=== PATIENT | female | born 1965 | race Caucasian/White ===

== ENCOUNTER 2017-01-17 13:51 | Emergency (ER) | payer SELFPAY ==
[~2017-01-17] VITALS: Ht 149.9 cm; Wt 66.0 kg
[~2017-01-17 13:51] MED LIST: BACT800T5 PO; MECL25CH PO
[2017-01-17 13:54] VITALS: BP 142/78; PULSE 84; RESP 24; TEMP 97.8; O2SAT 99
--- NOTE | 2017-01-17 18:20 | PD ---
HPI Chief Complaint: Certified Scrum Master Problem/Complaint Time Seen by Provider: 18:19 Travel History International Travel<30 days: No Contact w/Intl Traveler<30days: No Traveled to known affect area: No PFSH Past Medical History Arthritis: Yes Asthma: Yes Diabetes: Yes Diminished Hearing: No Social History Alcohol Use: No Tobacco Use: No Substance Use: No Allergies-Medications (Allergen,Severity, Reaction): Coded Allergies: Amoxicillin (Verified Allergy, Severe, 01/17/17) Penicillin (Verified Allergy, Intermediate, Rash, 01/17/17) Reported Meds & Prescriptions Reported Meds & Active Scripts Active Reported Methotrexate 2.5 Mg Tab 2.5 Mg PO Q7D Prednisone 1 Mg Tab 1 Mg PO DAILY Metformin (Metformin HCl) 500 Mg Tab 500 Mg PO BIDPC With meals Data Data Last Documented VS Vital Signs Date Time Temp Pulse Resp B/P Pulse Ox O2 Delivery O2 Flow Rate FiO2 01/17/17 13:54 97.8 84 24 142/78 99 Room Air Orders Bedside Glucose LISA.AC&HS (01/17/17 18:20) Pebbles Bermeo Jan 17, 2017 18:20
[2017-01-17] MEDS ORDERED: PRED1 PO (18:26)
[2017-01-17] MEDS ORDERED: METH2.5T PO (18:26)
[2017-01-17] MEDS ORDERED: METF500T PO (18:26)
[2017-01-17] MEDS ORDERED: VIST50CA PO (18:40)
[2017-01-17] MEDS ORDERED: TERB250T4 PO (18:40)
[2017-01-17] MEDS ORDERED: ULTR50TA5 PO (18:40)
--- NOTE | 2017-01-17 18:40 | PD ---
HPI . Genital rash Chief Complaint: Technical Intern Problem/Complaint Time Seen by Provider: 18:19 Travel History International Travel<30 days: No Contact w/Intl Traveler<30days: No Traveled to known affect area: No History of Present Illness HPI Patient presents with a two-week history of worsening as to the external genitalia. It has been gradually worsening. She has been using Monistat relief of her symptoms. She states that she is having trouble urinating and defecating secondary to pain associated with the rash. She is also scratching it so much that it is bleeding. He is diabetic. [id number]: Genital area QUALITY: Pruritic and painful SEVERITY: Severe DURATION: 2 weeks TIMING: Gradually worsening CONTEXT: Diabetic MODIFYING FACTORS: Unrelieved by Monistat ASSOCIATED SYMPTOMS: Difficulty urinating and defecating secondary to pain PFSH Past Medical History Arthritis: Yes Asthma: Yes Diabetes: Yes Patient Takes Glucophage: Yes Diminished Hearing: No Influenza Vaccination: No ?: Not Menopausal: Yes Social History Alcohol Use: No Tobacco Use: No Substance Use: No Allergies-Medications (Allergen,Severity, Reaction): Coded Allergies: Amoxicillin (Verified Allergy, Severe, 01/17/17) Penicillin (Verified Allergy, Intermediate, Rash, 01/17/17) Reported Meds & Prescriptions Reported Meds & Active Scripts Active Reported Methotrexate 2.5 Mg Tab 2.5 Mg PO Q7D Prednisone 1 Mg Tab 1 Mg PO DAILY Metformin (Metformin HCl) 500 Mg Tab 500 Mg PO BIDPC With meals Review of Systems Genitourinary: Positive: Other (itching and pain of the external genitalia) Physical Exam Narrative GENERAL: Awake and alert. She is Scottish-speaking. The PA has provided interpretation. SKIN: Warm and dry. HEAD: Atraumatic. Normocephalic. EYES: Pupils equal and round. CARDIOVASCULAR: Regular rate and rhythm. RESPIRATORY: No accessory muscle use. : Marked erythema, swelling and excoriation of the labia majora extending into the medial thighs and to the anus. There are satellite lesions. MUSCULOSKELETAL: No obvious deformities. No edema. NEUROLOGICAL: Awake and alert. No obvious cranial nerve deficits. Motor grossly within normal limits. Normal speech. PSYCHIATRIC: Appropriate mood and affect; insight and judgment normal. Data Data Last Documented VS Vital Signs Date Time Temp Pulse Resp B/P Pulse Ox O2 Delivery O2 Flow Rate FiO2 01/17/17 13:54 97.8 84 24 142/78 99 Room Air Orders Bedside Glucose LISA.AC&HS (01/17/17 18:20) MDM Medical Decision Making Medical Screen Exam Complete: Yes Emergency Medical Condition: Yes Differential Diagnosis The differential diagnosis of the skin rash includes but is not limited to allergic urticaria, scabies, insect bites, contact dermatitis, tinea. Narrative Course Patient presents for the evaluation of a painful,. Gradual external genitalia. This rash has the typical appearance of "jock itch." Diagnosis Primary Impression: Tinea cruris Patient Instructions: General Instructions, Jock Itch (ED) Med/Other Pt SpecificInfo: Prescription(s) given Scripts Tramadol (Ultram)50 Mg Tab50 Mg PO Q4H PRN (PAIN) #12 TAB Ref 0 Prov:Talia Goldman MD 01/17/17 Hydroxyzine Pamoate (Vistaril)50 Mg [id number] Mg PO QID PRN (itching) #30 CAP Ref 0 Prov:Talia Goldman MD 01/17/17 Terbinafine 250 Mg [id number] Mg PO DAILY 14 Days Ref 0 Prov:Talia Goldman MD 01/17/17 Disposition: 01 DISCHARGE HOME Condition: Stable Talia Goldman MD Jan 17, 2017 18:40
[2017-01-17] MEDS ORDERED: hydrOXYzine PAMOATE 25 MG CAP PO ONE (18:45)
[2017-01-17] MEDS ORDERED: ACETAMINOPHEN/HYDROcodone 325 MG/5 MG TAB PO ONE (18:45)
[2017-01-17 19:37] VITALS: BP 142/81; PULSE 89; RESP 18; O2SAT 99
== END 2017-01-17 21:55 | disposition home or self-care (01) ==
LOC: NEPA 13:51
DX: B35.6 Tinea cruris (principal)
CPT/HCPCS: 99283; Q0177

== ENCOUNTER 2017-06-29 00:20 | Observation (INO) | payer MEDICAID ==
[2017-06-29] VITALS (12 sets, daily range): BP systolic 109–177; BP diastolic 59–97; PULSE 57–92; RESP 17–24; TEMP 97.7–98.3; O2SAT 97–100
[~2017-06-29] VITALS: Ht 154.9 cm; Wt 60.0 kg
[~2017-06-29 00:20] MED LIST changes: -BACT800T5 PO; -MECL25CH PO; +METF500T PO; +METH2.5T PO; +PRED1 PO; +TERB250T4 PO; +ULTR50TA5 PO; +VIST50CA PO
[2017-06-29] MEDS: NITROGLYCERIN 0.4 MG SL 25 TABS/BTL SL SCH ×3 (00:30→00:40)
[2017-06-29] MEDS ORDERED: SODIUM CHLORIDE 0.9% FLUSH 10 ML FLUSH IVF PRN (00:30)
[2017-06-29] MEDS ORDERED: MORPHINE SULFATE 4 MG/ML INJ IV PUSH ONE (00:30)
[2017-06-29] MEDS ORDERED: ASPIRIN 81 MG CHEW TAB PO ONE (00:30)
--- NOTE | 2017-06-29 00:56 | RADRPT ---
EXAM DATE/TIME: 06/29/2017 00:45 [facility] COMPARISON: No previous studies available for comparison. INDICATIONS : Chest pain left lower chest. MEDICAL HISTORY : None. SURGICAL HISTORY : None. ENCOUNTER: Initial ACUITY: 1 day PAIN SCORE: 0/10 LOCATION: Bilateral chest FINDINGS: A single view of the chest demonstrates the lungs to be symmetrically aerated without evidence of mas s, infiltrate or effusion. The cardiomediastinal contours are unremarkable. Osseous structures are intact. CONCLUSION: 1. No acute cardiopulmonary disease. Sreedhar Prieto MD on June 29, 2017 at 0:54 Board Certified Radiologist. This report was verified electronically.
[2017-06-29 01:04] LABS: AUTOMATED NEUTROPHIL # 4.9 TH/MM3 (1.8-7.7); BASOPHIL # 0.1 TH/MM3 (0-0.2); BASOPHIL % 0.6 % (0.0-2.0); EOSINOPHIL # 0.7 TH/MM3 (0-0.4); EOSINOPHIL % 6.4 % (0.0-4.0); HEMO FLAGS DIFF FINAL; LYMPHOCYTE # 4.3 TH/MM3 (1.0-4.8); MEAN CELL VOLUME 98.3 FL (80.0-100.0); MEAN CORPUSCULAR HEMOGLOBIN 33.6 PG (27.0-34.0); MEAN CORPUSCULAR HGB CONC 34.2 % (32.0-36.0); PLATELET COUNT 295 TH/MM3 (150-450); RED BLOOD COUNT 3.66 MIL/MM3 (4.00-5.30); WHITE BLOOD COUNT 11.6 TH/MM3 (4.0-11.0)
[2017-06-29 01:15] LABS: APTT (PATIENT) 24.8 SEC (24.3-30.1); PROTHROMBIN TIME - PATIENT 11.4 SEC (9.8-11.6)
[2017-06-29 01:19] LABS: ANION GAP 10 MEQ/L (5-15); BICARBONATE 21.3 MEQ/L (21.0-32.0); BLOOD UREA NITROGEN 13 MG/DL (7-18); CHLORIDE 109 MEQ/L (98-107); CREATINE KINASE 56 U/L (26-192); GLOMERULAR FILTRATION RATE 83 ML/MIN (>89); MAGNESIUM 1.4 MG/DL (1.5-2.5); POTASSIUM 3.1 MEQ/L (3.5-5.1); SODIUM (NA) 140 MEQ/L (136-145)
--- NOTE | 2017-06-29 01:29 | PD ---
HPI Chief Complaint: Chest Pain Time Seen by Provider: 00:29 Travel History International Travel<30 days: No Contact w/Intl Traveler<30days: No Traveled to known affect area: No History of Present Illness HPI 51-year-old female with history of diabetes here for evaluation of chest pain. Patient points that she has had substernal chest pain described as sharp/ pressure for the last 2 days. Pain is worse with movements. She denies history of cardiac disease. Pain became more severe tonight and has been constant. Mild dyspnea. PFSH Past Medical History Arthritis: Yes Asthma: Yes Diabetes: Yes Patient Takes Glucophage: Yes Diminished Hearing: No Tetanus Vaccination: < 5 Years Influenza Vaccination: Yes ?: Not Menopausal: Yes Past Surgical History Surgical History: No Previous Surgery Social History Alcohol Use: No Tobacco Use: No Substance Use: No Allergies-Medications (Allergen,Severity, Reaction): Coded Allergies: amoxicillin (Unverified Allergy, Severe, 06/29/17) penicillin G (Unverified Allergy, Intermediate, Rash, 06/29/17) Reported Meds & Prescriptions Reported Meds & Active Scripts Active Reported Metformin (Metformin HCl) 500 Mg Tab 500 Mg PO BIDPC With meals Review of Systems Except as stated in HPI: all other systems reviewed are Neg Physical Exam Narrative GENERAL: Well-developed, well-nourished, moaning secondary to pain. SKIN: Focused skin assessment warm/dry. HEAD: Atraumatic. Normocephalic. EYES: Pupils equal and round. No scleral icterus. No injection or drainage. ENT: Mucous membranes pink and moist. NECK: Trachea midline. No JVD. CARDIOVASCULAR: Regular rate and rhythm. Distal pulses brisk and equal bilaterally. RESPIRATORY: No accessory muscle use. Clear to auscultation. Breath sounds equal bilaterally. GASTROINTESTINAL: Abdomen soft, non-tender, nondistended. MUSCULOSKELETAL: No obvious deformities. No clubbing. No cyanosis. No edema. NEUROLOGICAL: Awake and alert. No obvious cranial nerve deficits. Motor grossly within normal limits. Normal speech. PSYCHIATRIC: Appropriate mood and affect; insight and judgment normal. Data Data Last Documented VS Vital Signs Date Time Temp Pulse Resp B/P (MAP) Pulse Ox O2 Delivery O2 Flow Rate FiO2 06/29/17 01:49 18 115/67 (83) 06/29/17 00:47 97 Room Air 06/29/17 00:44 92 06/29/17 00:22 98.3 Orders Orders Basic Metabolic Panel (Bmp) (06/29/17 00:29) Ckmb (Isoenzyme) Profile (06/29/17:29) Complete Blood Count With Diff (06/29/17 00:29) D-Dimer (06/29/17:29) Magnesium (Mg) (06/29/17:29) Prothrombin Time / Inr (Pt) (06/29/17:29) Act Partial Throm Time (Ptt) (06/29/17:29) Troponin I (06/29/17:29) Chest, Single Ap (06/29/17:29) Ecg Monitoring (06/29/17:29) Bilateral Bp Monitoring (06/29/17:) Iv Access Insert/Monitor (06/29/17:29) Oximetry (06/29/17:29) Oxygen Administration (06/29/17:29) Aspirin Chew (Aspirin Chew) (06/29/17 00:30) Sodium Chloride 0.9% Flush (Ns Flush) (06/29/17 00:30) Nitroglycerin Sl (Nitrostat Sl) (06/29/17 00:30) Morphine Inj (Morphine Inj) (06/29/17 00:30) Ct Pulmonary Angiogram (06/29/17 01:19) Potassium Chloride (Kcl) (06/29/17 01:30) Lipase (06/29/17 01:30) Iohexol 350 Inj (Omnipaque 350 Inj) (06/29/17 01:52) Labs Laboratory Tests Test 06/29/17 00:38 White Blood Count 11.6 TH/MM3 Red Blood Count 3.66 MIL/MM3 Hemoglobin 12.3 GM/DL Hematocrit 36.0 % Mean Corpuscular Volume 98.3 FL Mean Corpuscular Hemoglobin 33.6 PG Mean Corpuscular Hemoglobin Concent 34.2 % Red Cell Distribution Width 23.0 % Platelet Count 295 TH/MM3 Mean Platelet Volume 8.7 FL Neutrophils (%) (Auto) 42.0 % Lymphocytes (%) (Auto) 37.0 % Monocytes (%) (Auto) 14.0 % Eosinophils (%) (Auto) 6.4 % Basophils (%) (Auto) 0.6 % Neutrophils # (Auto) 4.9 TH/MM3 Lymphocytes # (Auto) 4.3 TH/MM3 Monocytes # (Auto) 1.6 TH/MM3 Eosinophils # (Auto) 0.7 TH/MM3 Basophils # (Auto) 0.1 TH/MM3 CBC Comment DIFF FINAL Differential Comment Prothrombin Time 11.4 SEC Prothromb Time International Ratio 1.0 RATIO Activated Partial Thromboplast Time 24.8 SEC D-Dimer Quantitative (PE/DVT) 0.71 MG/L FEU Blood Urea Nitrogen 13 MG/DL Creatinine 0.74 MG/DL Random Glucose 149 MG/DL Calcium Level 8.7 MG/DL Magnesium Level 1.4 MG/DL Sodium Level 140 MEQ/L Potassium Level 3.1 MEQ/L Chloride Level 109 MEQ/L Carbon Dioxide Level 21.3 MEQ/L Anion Gap 10 MEQ/L Estimat Glomerular Filtration Rate 83 ML/MIN Total Creatine Kinase 56 U/L Troponin I LESS THAN 0.02 NG/ML Lipase 222 U/L [facility] Medical Decision Making Medical Screen Exam Complete: Yes Emergency Medical Condition: Yes Interpretation(s) EKG: Sinus, rate 76, normal axis, normal intervals, slight ST depressions in V2 through V3, no ST elevations, no T-wave abnormalities. Differential Diagnosis ACS, pneumothorax, peritonitis, PE, pneumonia, musculoskeletal pain Narrative Course Initial vital signs show heart rate 86, blood pressure 177/97, pulse ox 99% on room air, oral temp of 98.3F. After sublingual nitroglycerin, repeat blood pressure is 118/72. CBC is unremarkable. BMP is markable for potassium 3.1 which was replaced orally, random glucose 149 , otherwise unremarkable. Cardiac enzymes are negative. D-dimer is slightly positive at 0.70. Lipase is 222. Chest x-ray: No acute cardio pulmonary disease. Patient was given a full aspirin, 3 sublingual nitroglycerin, and IV morphine. On reassessment she is sleeping comfortably and is pain-free. CT pulmonary angiogram: CONCLUSION: 1. No CT evidence for pulmonary artery embolism to the subsegmental level as questioned. 2. 3-4 mm nodule in the superior segment of the right lower lobe adjacent the major fissure. Optional CT examination may be performed in 12 months to followup for stability if patient is high risk, per 2017 Fleischner criteria. 3. Cholelithiasis. Patient and the patient's family were made aware of all findings. She reports known history of gallstones. She was also provided a copy of her CTA thorax and instructed to follow-up with a primary care physician for repeat CT scan in a month. She was given a full aspirin and 3 sublingual nitroglycerin as well as IV morphine. On reassessment she is sleeping comfortably, however when awoken, she states her pain feels better, however she is still complaining of slight chest pain. Her EKG shows slight ST depressions in V2 through V4. There are no T-wave abnormalities. No ST segment elevations. She'll be admitted to the chest pain center for further cardiac evaluation. Diagnosis Primary Impression: Chest pain Qualified Codes: R07.9 - Chest pain, unspecified Additional Impressions: Pulmonary nodule Cholelithiasis Qualified Codes: K80.20 - Calculus of gallbladder without cholecystitis without obstruction Admitting Information Admitting Physician Requests: Jose Daniel Horowitz MD Jun 29, 2017 01:29
[2017-06-29] MEDS ORDERED: POTASSIUM CHLORIDE 20 MEQ CONTROLLED RELEASE TAB PO ONE (01:30)
[2017-06-29] MEDS ORDERED: IOHEXOL 350 MG/ML 10 ML VIAL (for RAD DIAG) IVCONTRAST ONE (01:52)
--- NOTE | 2017-06-29 02:04 | RADRPT ---
EXAM DATE/TIME: 06/29/2017 01:45 [facility] COMPARISON: No previous studies available for comparison. INDICATIONS : Chest pain x2 days. Radiates to left side of back. IV CONTRAST: 75 cc Omnipaque 350 (iohexol) IV RADIATION DOSE: 23.14 CTDIvol (mGy) MEDICAL HISTORY : Diabetes mellitus type 2. Asthma/ SURGICAL HISTORY : None. ENCOUNTER: Initial ACUITY: 2 days PAIN SCALE: 10/10 LOCATION: chest TECHNIQUE: Volumetric scanning of the chest was performed using a pulmonary embolism protocol MIP images were re constructed. Using automated exposure control and adjustment of the mA and/or kV according to patien t size, radiation dose was kept as low as reasonably achievable to obtain optimal diagnostic quality images. DICOM format image data is available electronically for review and comparison. Follow-up recommendations for detected pulmonary nodules are based at a minimum on nodule size and pa tient risk factors according to Fleischner Society Guidelines. FINDINGS: PULMONARY ARTERIES: No filling defects are seen in the pulmonary arteries through the segmental level. LUNGS: There is a small 3-4 mm nodule in the superior segment of the right lower lobe adjacent the major fis sure. There is mild mosaic attenuation at the lung bases likely related to volume loss. PLEURAE: There is no pleural thickening or pleural effusion. MEDIASTINUM: There is good visualization of the great vessels of the middle mediastinum. No evidence of mediastin al or hilar adenopathy/mass. MUSCULOSKELETAL: Within normal limits for patient age. MISCELLANEOUS: Visualized upper abdomen demonstrates varying density in the dependent portion the gallbladder likely reflecting small gallstones. No significant focal lytic or blastic bony lesions. CONCLUSION: 1. No CT evidence for pulmonary artery embolism to the subsegmental level as questioned. 2. 3-4 mm nodule in the superior segment of the right lower lobe adjacent the major fissure. Optional CT examination may be performed in 12 months to followup for stability if patient is high risk, per 2017 Fleischner criteria. 3. Cholelithiasis. Sreedhar Prieto MD on June 29, 2017 at 1:57 Board Certified Radiologist. This report was verified electronically.
[2017-06-29] MEDS ORDERED: SODIUM CHLORIDE 0.9% FLUSH 10 ML FLUSH IV FLUSH PRN (02:30)
[2017-06-29] MEDS ORDERED: ONDANSETRON HCL 4 MG/2 ML VIAL ONE (03:43)
[2017-06-29] MEDS ORDERED: ONDANSETRON HCL 4 MG/2 ML VIAL IV PUSH ONE (03:45)
[2017-06-29 04:06] LABS: CREATINE KINASE 21 U/L (26-192)
[2017-06-29] MEDS ORDERED: MORPHINE SULFATE 4 MG/ML INJ IV PRN (05:45)
--- NOTE | 2017-06-29 07:53 | HHI.HP ---
HPI Primary Care Physician Primary Care Physician-[place], [place] Chief Complaint Chest pain History of Present Illness 51 year of female with known diabetes presents to ER for further evaluation of chest pain. Onset x2 nights ago. Location left inframammary. Characterized as sharp. No radiation of pain. Duration constant for 2 days. Breathing makes pain worse. No particular movement or position makes pain better or worse. No associated symptoms of nausea, vomiting, shortness of breath , or diaphoresis. No precipitating or relieving factors. No recent illness, fever, chills, fall, trauma, of injury. Special Diet Cook used during HPI and in the presence of the nurse. Review of Systems General: No fatigue,weakness, fever, chills, or recent illness. HEENT: No nasal congestion or drainage CV: As stated above. Chest pain made worse with expiration. RESP: No SOB, cough, recent URI, or wheeze. GI: No nausea, vomiting, or bowel changes. No change in appetite. EXT: No lower leg edema MS: Chronic back pain and generalized discomfort from RA. No injury, fall, trauma, or change in ROM NEURO: No difficulty with balance, LOC, motor/sensory deficits PSYCH: No anxiety, depression, or suicidal thoughts SKIN: No rashes, no concerning lesions Past Family Social History Allergies: Coded Allergies: penicillin G (Unverified Allergy, Intermediate, Rash, 06/29/17) Past Medical History Diabetes, RA, asthma Past Surgical History None Reported Medications Reported Meds & Active Scripts Active Reported Metformin (Metformin HCl) 500 Mg Tab 500 Mg PO BIDPC With meals Active Ordered Medications Current Medications Medications (Trade) Dose Ordered Sig/Lionel Route Start Time Stop Time Status Last Admin (NS Flush) 2 ml UNSCH PRN IVF 06/29/17 00:30 (NS Flush) 2 ml UNSCH PRN IV FLUSH 06/29/17 02:30 (NS Flush) 2 ml BID IV FLUSH 06/29/17 09:00 (Morphine Inj) 4 mg UNSCH X1 PRN IV 06/29/17 05:45 06/29/17 12:00 Social History Known diabetes (reports well controlled on Metformin). No known hyperlipidemia, CAD, or hypertension. Lifelong nonsmoker. Past Cardiac Testing None Physical Exam Vital Signs Vital Signs Date Time Temp Pulse Resp B/P (MAP) Pulse Ox O2 Delivery O2 Flow Rate FiO2 06/29/17 07:24 97.7 57 18 112/60 (77) 99 06/29/17 06:21 21 06/29/17 05:45 97.9 59 18 120/69 (86) 100 06/29/17 04:13 06/29/17 01:49 18 115/67 (83) 06/29/17 00:47 20 97 Room Air 06/29/17 00:44 92 20 118/72 (87) 97 Room Air 116/63 (80) 06/29/17 00:24 91 22 99 Room Air 06/29/17 00:22 98.3 86 24 177/97 (123) 99 Physical Exam GENERAL: Alert WN, WD, NAD, pleasant, [place]ian speaking female HEAD: NC, AT EYES: Sclera clear, conjunctiva without injection, pupils equal and round ENT: Mucous membranes pink and moist NECK: Supple, no masses, trachea midline CV: RRR, without murmur, rub, gallop, no JVD, S1-S2 no S3-S4. Chest wall pain reproducible with palpation. RESP: Clear lungs throughout bilateral, no crackles, wheeze, rhonchi, symmetrical chest rise, nonlabored, able to speak in full sentences ABD: Soft, NT, ND, no masses, positive bowel tones EXT: Pulses +24, no dependent edema MS: Normal tone 4 extremities, nontender, no obvious deformities, full range of motion NEURO: CN II through CN XII grossly intact, motor strength 5/5 PSYCH: A+O 3, pleasant affect, appropriate speech, appropriate mood and affect , insight and judgment SKIN: Normal turgor, normal texture, no lesions, no rashes Laboratory Laboratory Tests Test 06/29/17 00:38 06/29/17 03:18 06/29/17 06:30 White Blood Count 11.6 Red Blood Count 3.66 Hemoglobin 12.3 Hematocrit 36.0 Mean Corpuscular Volume 98.3 Mean Corpuscular Hemoglobin 33.6 Mean Corpuscular Hemoglobin Concent 34.2 Red Cell Distribution Width 23.0 Platelet Count 295 Mean Platelet Volume 8.7 Neutrophils (%) (Auto) 42.0 Lymphocytes (%) (Auto) 37.0 Monocytes (%) (Auto) 14.0 Eosinophils (%) (Auto) 6.4 Basophils (%) (Auto) 0.6 Neutrophils # (Auto) 4.9 Lymphocytes # (Auto) 4.3 Monocytes # (Auto) 1.6 Eosinophils # (Auto) 0.7 Basophils # (Auto) 0.1 CBC Comment DIFF FINAL Differential Comment Prothrombin Time 11.4 Prothromb Time International Ratio 1.0 Activated Partial Thromboplast Time 24.8 D-Dimer Quantitative (PE/DVT) 0.71 Blood Urea Nitrogen 13 Creatinine 0.74 Random Glucose 149 Calcium Level 8.7 Magnesium Level 1.4 Sodium Level 140 Potassium Level 3.1 Chloride Level 109 Carbon Dioxide Level 21.3 Anion Gap 10 Estimat Glomerular Filtration Rate 83 Total Creatine Kinase 56 21 Troponin I LESS THAN 0.02 LESS THAN 0.02 Lipase 222 Result Diagram: 06/29/173706/29/[address] Angiography 06/29/17118 Signed Impressions: Service Date/Time: Thursday, June 29, 2017 01:45 - CONCLUSION: 1. No CT evidence for pulmonary artery embolism to the subsegmental level as questioned. 2. 3-4 mm nodule in the superior segment of the right lower lobe adjacent the major fissure. Optional CT examination may be performed in 12 months to followup for stability if patient is high risk, per 2017 Fleischner criteria. 3. Cholelithiasis. Sreedhar Prieto MD Chest X-Ray 06/29/17 0029 Signed Impressions: Service Date/Time: Thursday, June 29, 2017 00:45 - CONCLUSION: 1. No acute cardiopulmonary disease. Sreedhar Prieto MD Course EKG NSR, normal axis, nonspecific st changes Caprini VTE Risk Assessment Caprini VTE Risk Assessment: No/Low Risk (score <= 1) Caprini Risk Assessment Model Point Value = 1 Point Value = 2 Point Value = 3 Point Value = 5 Age 41-60 Minor surgery BMI > 25 kg/m2 Swollen legs Varicose veins or History of unexplained or recurrent spontaneous Oral contraceptives or hormone replacement Sepsis (< 1 month) Serious lung disease, including pneumonia (< 1 month) Abnormal pulmonary function Acute myocardial infarction Congestive heart failure (< 1 month) History of inflammatory bowel disease Medical patient at bed rest Age 61-74 Arthroscopic surgery Major open surgery (> 45 min) Laparoscopic surgery (> 45 min) Malignancy Confined to bed (> 72 hours) Immobilizing plaster cast Central venous access Age >= 75 History of VTE Family history of VTE Factor V Leiden Prothrombin [id number] Lupus anticoagulant Anticardiolipin antibodies Elevated serum homocysteine Heparin-induced thrombocytopenia Other congenital or acquired thrombophilia Stroke (< 1 month) Elective arthroplasty Hip, pelvis, or leg fracture Acute spinal cord injury (< 1 month) Prophylaxis Regimen Total Risk Factor Score Risk Level Prophylaxis Regimen 0-1 Low Early ambulation 2 Moderate Order ONE of the following: *Sequential Compression Device (SCD) *Heparin 5000 units SQ BID 3-4 Higher Order ONE of the following medications: *Heparin 5000 units SQ TID *Enoxaparin/Lovenox 40 mg SQ daily (WT < 150 kg, CrCl > 30 mL/min) *Enoxaparin/Lovenox 30 mg SQ daily (WT < 150 kg, CrCl > 10-29 mL/min) *Enoxaparin/Lovenox 30 mg SQ BID (WT < 150 kg, CrCl > 30 mL/min) AND/OR *Sequential Compression Device (SCD) 5 or more Highest Order ONE of the following medications: *Heparin 5000 units SQ TID (Preferred with Epidurals) *Enoxaparin/Lovenox 40 mg SQ daily (WT < 150 kg, CrCl > 30 mL/min) *Enoxaparin/Lovenox 30 mg SQ daily (WT < 150 kg, CrCl > 10-29 mL/min) *Enoxaparin/Lovenox 30 mg SQ BID (WT < 150 kg, CrCl > 30 mL/min) AND *Sequential Compression Device (SCD) Assessment and Plan Assessment and Plan #1 Atypical chest pain-admitted to chest pain center. Ruled out with 3 sets of EKGs and cardiac enzymes. Seen and evaluated by Dr. Kate Boudreaux. Proceed with Lexiscan due to risks factors. Chest discomfort clearly appears to by musculoskeletal in nature. This has been discussed with patient and she is agreeable to plan of care. #2 Diabetes-hold metformin at this time for testing, resume after testing #3 Musculoskeletal pain-Ibuprofen 600mg x1 dose prior to Lexiscan. If chemical test unremarkable, will discharge with aleve 500mg twice daily for 5 days, followed by 250 mg twice daily for 5 days. #4 Hypokalemia-supplementation given in ED Cristal Estrella Jun 29, 2017 07:53
[2017-06-29 08:21] LABS: CREATINE KINASE 20 U/L (26-192)
[2017-06-29] MEDS ORDERED: ACETAMINOPHEN 500 MG CPLT PO PRN (09:00)
[2017-06-29] MEDS ORDERED: ONDANSETRON HCL 4 MG/2 ML VIAL IV PRN (09:00)
[2017-06-29] MEDS ORDERED: ASPIRIN 325 MG TAB PO SCH (09:00)
[2017-06-29] MEDS ORDERED: IBUPROFEN 600 MG TAB PO ONE (09:00)
[2017-06-29] MEDS ORDERED: SODIUM CHLORIDE 0.9% FLUSH 10 ML FLUSH IV FLUSH SCH (09:00)
[2017-06-29] MEDS ORDERED: NITROGLYCERIN 0.4 MG SL 25 TABS/BTL SL PRN (09:00)
[2017-06-29] MEDS ORDERED: REGADENOSON INJ 0.4 MG/5 ML SYR ONE (14:36)
--- NOTE | 2017-06-29 16:10 | RADRPT ---
EXAM DATE/TIME: 06/29/2017 13:37 [facility] COMPARISON: No previous studies available for comparison. INDICATIONS : Mid chest pain for one day. Angina. DOSE: 25.4 mCi Tc99m Myoview at stress. 8.7 mCi Tc99m Myoview at rest. 0.4 mg Lexiscan STRESS SYMPTOMS: Dyspnea and nausea. EJECTION FRACTION: > 70% MEDICAL HISTORY : Diabetes mellitus type 2. SURGICAL HISTORY : None. ENCOUNTER: Initial ACUITY: 2 days PAIN SCALE: 3/10 LOCATION: Midsternal chest TECHNIQUE: The patient underwent pharmacologic stress with infusion of prescribed dose. Continuous ECG tracing was monitored during stress. Gated SPECT imaging was performed after stress and conventional SPECT i maging was performed at rest. The examination was performed on a SPECT/CT scanner, both attenuation and non-corrected datasets were reviewed. FINDINGS: DISTRIBUTION: The maximum perfused segment at stress is in the septal wall. PERFUSION STUDY: The pattern of perfusion at stress is within normal limits. GATED STUDY: There is intact wall motion and thickening without hypokinetic or dyskinetic segments. CONCLUSION: 1. Unremarkable myocardial perfusion scan. RISK CATEGORY: Low (<1% Annual Mortality Rate) Destin Anderson MD on June 29, 2017 at 16:07 Board Certified Radiologist. This report was verified electronically.
--- NOTE | 2017-06-29 16:59 | TR ---
Date Performed: 06/29/2017 Time Performed: 14:31:54 DOCTOR: Kate Boudreaux DRUG LIST: CLINICAL HISTORY: ANGINA REASON FOR TEST: Angina REASON FOR ENDING: OBSERVATION: CONCLUSION: Lexiscan stress test was performed under standard four minute protocol. Radionuclid e was injected one minute prior to ending the test. No electrocardiographic abormalities were present to suggest ischemia. Nuclear imaging and interpretation are pending. COMMENTS:
--- NOTE | 2017-06-29 17:00 | EKG ---
Date Performed: 06/29/2017 Time Performed: 06:33:40 PTAGE: 51 years EKG: Sinus rhythm NORMAL ECG Since PREVIOUS TRACING , no significant change noted PREVIOUS TRACIN06/29/2017 03.32 DOCTOR: Kate Boudreaux Interpretating Date/Time 06/29/2017 16:59:53
--- NOTE | 2017-06-29 17:01 | EKG ---
Date Performed: 06/29/2017 Time Performed: 03:32:04 PTAGE: 51 years EKG: SINUS BRADYCARDIA MINIMAL ST DEPRESSION BORDERLINE ECG Since PREVIOUS TRACING , no significant change noted PREVIOUS TRACIN06/29/2017 00.50 DOCTOR: Kate Boudreaux Interpretating Date/Time 06/29/2017 17:00:27
--- NOTE | 2017-06-29 17:02 | EKG ---
Date Performed: 06/29/2017 Time Performed: 00:50:45 PTAGE: 51 years EKG: Sinus rhythm MODERATE ST DEPRESSION ABNORMAL ECG Since PREVIOUS TRACING , no significant change noted PREVIOUS TRACIN10/05/2015 16.47 DOCTOR: Kate Boudreaux Interpretating Date/Time 06/29/2017 17:01:48
[2017-06-29] MEDS ORDERED: NAPR500 PO (17:06)
--- NOTE | 2017-06-29 17:06 | HHI.DCPOC ---
Discharge Care Plan Diagnosis: (1) Musculoskeletal chest pain (2) Type 2 diabetes mellitus Goals to Promote Your Health * To prevent worsening of your condition and complications * To maintain your health at the optimal level Directions to Meet Your Goals Take your medications as prescribed Follow your dietary instruction Follow activity as directed Keep your appointments as scheduled Take your immunizations and boosters as scheduled If your symptoms worsen call your PCP, if no PCP go to Urgent Care Center or Emergency Room Smoking is Dangerous to Your Health. Avoid second hand smoke Call the 24-hour hour crisis hotline for domestic abuse at Cristal Estrella Jun 29, 2017 17:06
== END 2017-06-29 18:43 | disposition home or self-care (01) ==
LOC: NEPE 00:20 → NEDA 02:18 → NEPHCDU 04:29
PROVIDERS: ADMIT Internal Medicine Cardiovascular Disease; ATTEND Internal Medicine Cardiovascular Disease
DX: R07.9 Chest pain, unspecified (principal); R94.31 Abnormal electrocardiogram [ECG] [EKG]; R91.1 Solitary pulmonary nodule; E11.9 Type 2 diabetes mellitus without complications; E87.6 Hypokalemia; K80.20 Calculus of gallbladder without cholecystitis without obstruction; Z79.84 Long term (current) use of oral hypoglycemic drugs
CPT/HCPCS: 71010; 71275; 78452; 80048; 82550; 82948; 83690; 83735; 84484; 85025; 85379; 85610; 85730; 93005; 93017; 96374; 96375; 99285; A9502; G0378; J2270; J2405; J2785; Q9967

== ENCOUNTER 2017-09-08 08:46 | Inpatient (IN) | payer MEDICAID ==
[~2017-09-08] VITALS: Ht 121.9 cm; Wt 59.0 kg
[~2017-09-08 08:46] MED LIST changes: -METH2.5T PO; +NAPR500 PO; -PRED1 PO; -TERB250T4 PO; -ULTR50TA5 PO; -VIST50CA PO
[2017-09-08 09:04] VITALS: BP 109/71; PULSE 124; RESP 18
[2017-09-08] MEDS ORDERED: ACETAMINOPHEN 325 MG TAB PO ONE (09:15)
--- NOTE | 2017-09-08 09:53 | RADRPT ---
EXAM DATE/TIME: 09/08/2017 09:41 [facility] COMPARISON: CHEST SINGLE AP, June 29, 2017, 0:45. INDICATIONS : Fever. Patient states she had a reaction to something she ingested. MEDICAL HISTORY : Diabetes mellitus type 2. Asthma SURGICAL HISTORY : None. ENCOUNTER: Initial ACUITY: 2 days PAIN SCORE: 0/10 LOCATION: Bilateral chest FINDINGS: A single view of the chest demonstrates the lungs to be symmetrically aerated without evidence of mas s, infiltrate or effusion. The cardiomediastinal contours are unremarkable. Osseous structures are intact. CONCLUSION: No acute disease. Aleksander Monteiro MD FACR on September 08, 2017 at 9:51 Board Certified Radiologist. This report was verified electronically.
[2017-09-08 10:05] LABS: AUTOMATED NEUTROPHIL # 23.3 TH/MM3 (1.8-7.7); BASOPHIL # 0.1 TH/MM3 (0-0.2); BASOPHIL % 0.3 % (0.0-2.0); HEMATOCRIT 43.9 % (35.0-46.0); HEMO FLAGS DIFF FINAL; LYMPH % 8.9 % (9.0-44.0); LYMPHOCYTE # 2.5 TH/MM3 (1.0-4.8); MEAN CELL VOLUME 87.7 FL (80.0-100.0); MEAN CORPUSCULAR HEMOGLOBIN 29.5 PG (27.0-34.0); MEAN CORPUSCULAR HGB CONC 33.7 % (32.0-36.0); MONO % 7.1 % (0.0-8.0); NEUT % 83.7 % (16.0-70.0); PLATELET COUNT 204 TH/MM3 (150-450); RED BLOOD COUNT 5.01 MIL/MM3 (4.00-5.30); RED CELL DISTRIBUTION WIDTH 12.1 % (11.6-17.2); WHITE BLOOD COUNT 27.8 TH/MM3 (4.0-11.0)
[2017-09-08 11:10] VITALS: TEMP 98.5
[2017-09-08 11:55] LABS: LACTIC ACID GHOST NOT REPORTABLE
[2017-09-08] MEDS ORDERED: METH2.5T PO (12:22)
[2017-09-08] MEDS ORDERED: FOLI400T PO (12:22)
[2017-09-08] MEDS ORDERED: GABA100C4 PO (12:22)
[2017-09-08] MEDS ORDERED: SODIUM CHLOR 0.9% 1000 ML INJ 1,000 ML IV ONE ×2 (12:30→18:15)
[2017-09-08] MEDS ORDERED: diphenhydrAMINE HCL 50 MG/ML VIAL IV PUSH ONE (12:30)
[2017-09-08] MEDS ORDERED: methylPREDNISolone SOD SUCC 125 MG/2 ML VIAL IV PUSH ONE (12:30)
[2017-09-08 13:46] VITALS: BP 122/67; PULSE 73; RESP 14; O2SAT 100
[2017-09-08] MEDS ORDERED: hydrOXYzine HCL 25 MG TAB PO ONE (14:15)
[2017-09-08 16:14] LABS: AUTOMATED NEUTROPHIL # 21.7 TH/MM3 (1.8-7.7); BASOPHIL % 0.2 % (0.0-2.0); HEMATOCRIT 38.9 % (35.0-46.0); HEMO FLAGS DIFF FINAL; LYMPH % 6.3 % (9.0-44.0); LYMPHOCYTE # 1.5 TH/MM3 (1.0-4.8); MEAN CELL VOLUME 87.9 FL (80.0-100.0); MEAN CORPUSCULAR HEMOGLOBIN 30.1 PG (27.0-34.0); MEAN CORPUSCULAR HGB CONC 34.3 % (32.0-36.0); MONO % 2.6 % (0.0-8.0); NEUT % 90.9 % (16.0-70.0); PLATELET COUNT 158 TH/MM3 (150-450); RED BLOOD COUNT 4.43 MIL/MM3 (4.00-5.30); WHITE BLOOD COUNT 23.9 TH/MM3 (4.0-11.0)
[2017-09-08 17:47] LABS: BACTERIA, URINE MANY /hpf; BLOOD, URINE NEG (NEG); GLUCOSE,URINE 300 mg/dL (NEG); KETONE, URINE 10 mg/dL (NEG); MUCUS URINE FEW /lpf (OCC); NITRITE,URINE NEG (NEG); SQUAMOUS EPITHELIAL CELL URINE 2 /hpf (0-5); URINE COLOR LIGHT-YELLOW (YELLW/STRAW)
[2017-09-08 17:50] LABS: COMMENT (UR) CATH-CULTURE IND; CULTURE IF INDICATED CATH CULTURE IND
[2017-09-08] MEDS ORDERED: cefTRIAXone INJ 1,000 MG in SODIUM CHLORIDE 0.9% INJ 100 ML IV ONE (18:00)
[2017-09-08 18:03] VITALS: BP 96/62; PULSE 71; RESP 19; O2SAT 99
--- NOTE | 2017-09-08 18:57 | PD ---
HPI Chief Complaint: Allergic/Adverse Reaction Time Seen by Provider: 12:03 Travel History International Travel<30 days: No Contact w/Intl Traveler<30days: No Traveled to known affect area: No History of Present Illness HPI Patient is a 52-year-old female who comes in complaining of redness to her face. She says about 4 days ago she drank some marijuana tea to help with arthritis and she believes she is having an allergic reaction to this. She says she felt occasional shortness of breath. She denies any swelling of her mouth. She says she has never had any allergies in the past. She denies taking any other medications or using any new facial creams or soaps. She denies any fever or chills. She has not any chest pain or abdominal pain. [facility] Past Medical History Arthritis: Yes Asthma: Yes Diabetes: Yes Patient Takes Glucophage: Yes Diminished Hearing: No Neurologic: Yes (neuropathy) ?: Not Menopausal: Yes Past Surgical History Surgical History: No Previous Surgery Social History Alcohol Use: No Tobacco Use: No Substance Use: Yes (marijuana) Allergies-Medications (Allergen,Severity, Reaction): Coded Allergies: penicillin G (Unverified Allergy, Intermediate, Rash, 09/08/17) Reported Meds & Prescriptions Reported Meds & Active Scripts Active Naprosyn (Naproxen) 500 Mg Tab 250 Mg PO BID 5 Days Take 500mg (2 tablets) twice daily for 5 days followed by 250mg (1 tablet) twice daily for 5 days. Take with food. Reported Gabapentin 100 Mg Cap 100 Mg PO BID Folic Acid 0.4 Mg Tab 400 Mcg PO DAILY Methotrexate 2.5 Mg Tab 20 Mg PO Q7D Metformin (Metformin HCl) 500 Mg Tab 500 Mg PO BIDPC With meals Review of Systems Except as stated in HPI: all other systems reviewed are Neg General / Constitutional: No: Fever, Chills HENT: No: Headaches, Lightheadedness Cardiovascular: No: Chest Pain or Discomfort Respiratory: No: Shortness of Breath Gastrointestinal: No: Nausea, Vomiting Musculoskeletal: No: Myalgias, Weakness Skin: No Rash, No Change in Pigmentation Neurologic: No: Weakness, Dizziness Physical Exam Narrative GENERAL: Awake and alert, in no acute distress. SKIN: Focused skin assessment warm/dry. Erythema and warmth to the face from the eyes to the chin on both sides. There is no obvious abscess. HEAD: Atraumatic. Normocephalic. EYES: Pupils equal and round. No scleral icterus. No injection or drainage. ENT: Mucous membranes pink and moist. No swelling of the tongue or throat. NECK: Trachea midline. No JVD. CARDIOVASCULAR: Regular rate and rhythm. No murmur appreciated. RESPIRATORY: No accessory muscle use. Clear to auscultation. Breath sounds equal bilaterally. GASTROINTESTINAL: Abdomen soft, non-tender, nondistended. MUSCULOSKELETAL: No obvious deformities. No clubbing. No cyanosis. No edema. NEUROLOGICAL: Awake and alert. No obvious cranial nerve deficits. Motor grossly within normal limits. Normal speech. PSYCHIATRIC: Appropriate mood and affect; insight and judgment normal. Data Data Last Documented VS Vital Signs Date Time Temp Pulse Resp B/P (MAP) Pulse Ox O2 Delivery O2 Flow Rate FiO2 09/08/17 18:03 71 19 96/62 (73) 99 Room Air 09/08/17 11:10 98.5 Orders Orders Sepsis Workup Initiated (09/08/17 ) Complete Blood Count With Diff (09/08/17 09:12) Lactic Acid Sepsis Protocol (09/08/17 09:12) Urinalysis - C+S If Indicated (09/08/17 09:12) Blood Culture (09/08/17 09:12) Chest, Single Ap (09/08/17 09:12) Blood Glucose (09/08/17 09:12) Ecg Monitoring (09/08/17 09:12) Iv Access Insert/Monitor (09/08/17 09:12) Oximetry (09/08/17 09:12) Oxygen Administration (09/08/17 09:12) Acetaminophen (Tylenol) (09/08/17 09:15) Sodium Chlor 0.9% 1000 Ml Inj (Ns 1000 M (09/08/17 12:30) Diphenhydramine Inj (Benadryl Inj) (09/08/17 12:30) Methylprednisolone So Succ Inj (Solumedr (09/08/17 12:30) Hydroxyzine Hcl (Atarax) (09/08/17 14:15) Complete Blood Count With Diff (09/08/17 15:34) Urine Culture (09/08/17 17:15) Ceftriaxone Inj (Rocephin Inj) (09/08/17 18:00) Sodium Chlor 0.9% 1000 Ml Inj (Ns 1000 M (09/08/17 18:15) Admit Order (Ed Use Only) (09/08/17 ) Labs Laboratory Tests Test 09/08/17 09:30 09/08/17 12:37 09/08/17 15:55 09/08/17 17:15 White Blood Count 27.8 TH/MM3 23.9 TH/MM3 Red Blood Count 5.01 MIL/MM3 4.43 MIL/MM3 Hemoglobin 14.8 GM/DL 13.3 GM/DL Hematocrit 43.9 % 38.9 % Mean Corpuscular Volume 87.7 FL 87.9 FL Mean Corpuscular Hemoglobin 29.5 PG 30.1 PG Mean Corpuscular Hemoglobin Concent 33.7 % 34.3 % Red Cell Distribution Width 12.1 % 12.0 % Platelet Count 204 TH/MM3 158 TH/MM3 Mean Platelet Volume 9.9 FL 9.7 FL Neutrophils (%) (Auto) 83.7 % 90.9 % Lymphocytes (%) (Auto) 8.9 % 6.3 % Monocytes (%) (Auto) 7.1 % 2.6 % Eosinophils (%) (Auto) 0.0 % 0.0 % Basophils (%) (Auto) 0.3 % 0.2 % Neutrophils # (Auto) 23.3 TH/MM3 21.7 TH/MM3 Lymphocytes # (Auto) 2.5 TH/MM3 1.5 TH/MM3 Monocytes # (Auto) 2.0 TH/MM3 0.6 TH/MM3 Eosinophils # (Auto) 0.0 TH/MM3 0.0 TH/MM3 Basophils # (Auto) 0.1 TH/MM3 0.0 TH/MM3 CBC Comment DIFF FINAL DIFF FINAL Differential Comment Lactic Acid Level 2.5 mmol/L 1.3 mmol/L Urine Color LIGHT-YELLOW Urine Turbidity HAZY Urine pH 6.0 Urine Specific [place] 1.008 Urine Protein TRACE mg/dL Urine Glucose (UA) 300 mg/dL Urine Ketones 10 mg/dL Urine Occult Blood NEG Urine Nitrite NEG Urine Bilirubin NEG Urine Urobilinogen LESS THAN 2.0 MG/DL Urine Leukocyte Esterase LARGE Urine RBC 6 /hpf Urine WBC 24 /hpf Urine Squamous Epithelial Cells 2 /hpf Urine Amorphous Sediment RARE Urine Bacteria MANY /hpf Urine Mucus FEW /lpf Microscopic Urinalysis Comment CATH-CULTURE IND MDM Medical Decision Making Medical Screen Exam Complete: Yes Emergency Medical Condition: Yes Medical Record Reviewed: Yes Differential Diagnosis Allergic reaction versus cellulitis versus sepsis Narrative Course Patient is a 52-year-old female comes in complaining of redness of her face. Exam shows erythema and warmth of her face. She is tachycardic on arrival. IV established, labs sent. Labs show a white blood cell count of 27.8. Lactic acid is 2.5. Patient given IV fluids, given Benadryl, given Solu-Medrol. She continued to report itching of her face, given hydroxyzine. Lactic acid improved after fluids. Her white blood cell count remained elevated. Her urinalysis is positive for infection. Treated with Rocephin and admitted for urosepsis. Diagnosis Primary Impression: UTI (urinary tract infection) Qualified Codes: N30.00 - Acute cystitis without hematuria Additional Impression: Sepsis Qualified Codes: A41.9 - Sepsis, unspecified organism Admitting Information Admitting Physician Requests: Petty Talley MD Sep 08, 2017 18:57
[2017-09-08 19:53] VITALS: BP 103/59; PULSE 67; RESP 16; TEMP 97.3; O2SAT 100
[2017-09-08] MEDS ORDERED: LACTULOSE SYRUP 20 GM/30 ML CUP PO PRN (20:15)
[2017-09-08] MEDS ORDERED: ACETAMINOPHEN 325 MG TAB PO PRN (20:15)
[2017-09-08] MEDS ORDERED: BISACODYL 10 MG SUPP RECTAL PRN (20:15)
[2017-09-08] MEDS ORDERED: NALOXONE HCL 0.4 MG/ML AMP IV PUSH PRN (20:15)
[2017-09-08] MEDS ORDERED: DEXTROSE 50% IN WATER 50 ML VIAL(D50) IV PUSH PRN (20:15)
[2017-09-08] MEDS ORDERED: GLUCAGON 1 MG/ML VIAL OTHER PRN (20:15)
[2017-09-08] MEDS ORDERED: diphenhydrAMINE HCL 50 MG/ML VIAL IM PRN (20:15)
[2017-09-08] MEDS ORDERED: MAGNESIUM HYDROXIDE SUSP 30 ML CUP PO PRN (20:15)
[2017-09-08] MEDS ORDERED: SENNOSIDES 8.6 MG TAB PO PRN (20:15)
[2017-09-08] MEDS ORDERED: SODIUM CHLORIDE 0.9% FLUSH 10 ML FLUSH IV FLUSH PRN (20:15)
[2017-09-08] MEDS ORDERED: ONDANSETRON HCL 4 MG/2 ML VIAL IVP PRN (20:15)
--- NOTE | 2017-09-08 20:26 | HHI.HP ---
[facility] Service [facility] Primary Care Physician No Primary Care Physician Admission Diagnosis sepsis, UTI Diagnoses: Travel History International Travel<30 Days: No Contact w/Intl Traveler <30 Da: No Traveled to Known Affected Are: No History of Present Illness 52-year-old female with a past medical history of type 2 diabetes mellitus and rheumatoid arthritis presents with a 2 day history of a red, swollen warm face. The patient reports that 4 days ago she drank a small amount of marijuana tea and then 2 days later awoke to find her face swollen, red and hot. This was the patient's first time ingesting marijuana and any form. The patient was tachycardic on her arrival to [facility]. Had a significant leukocytosis to 27.8 with a left shift. UA significant for large leukocyte esterase, 24 WBCs and many urine bacteria. The patient denies any dysuria, hematuria. She denies systemic symptoms such as fever/chills. Despite treatment in the emergency department with hydroxyzine and Benadryl, her face remains red and swollen. She denies any throat swelling or shortness of breath. Review of Systems Denies fever or chills Denies blurry vision, otorrhea, rhinorrhea Denies sore throat and cough No chest pain, palpitations, shortness of breath No abdominal pain Denies constipation/diarrhea/nausea/vomiting Denies muscle pain/weakness No rashes Past Family Social History Past Medical History Type 2 diabetes mellitus Rheumatoid arthritis Past Surgical History None Reported Medications Reported Meds & Active Scripts Active Naprosyn (Naproxen) 500 Mg Tab 250 Mg PO BID 5 Days Take 500mg (2 tablets) twice daily for 5 days followed by 250mg (1 tablet) twice daily for 5 days. Take with food. Reported Gabapentin 100 Mg Cap 100 Mg PO BID Folic Acid 0.4 Mg Tab 400 Mcg PO DAILY Methotrexate 2.5 Mg Tab 20 Mg PO Q7D Metformin (Metformin HCl) 500 Mg Tab 500 Mg PO BIDPC With meals Allergies: Coded Allergies: penicillin G (Unverified Allergy, Intermediate, Rash, 09/08/17) Family History Both parents with diabetes mellitus. Social History Marijuana use 1, 4 days ago. Denies smoking, alcohol and illicit drugs Physical Exam Vital Signs Vital Signs Date Time Temp Pulse Resp B/P (MAP) Pulse Ox O2 Delivery O2 Flow Rate FiO2 09/08/17 19:53 67 16 103/59 (74) 100 Room Air 09/08/17 18:03 71 19 96/62 (73) 99 Room Air 09/08/17 13:46 73 14 122/67 (85) 100 Room Air 09/08/17 11:10 98.5 09/08/17 09:04 124 18 109/71 (84) Physical Exam GENERAL: female sitting up in bed SKIN: Red, swollen face from just below the eyes to the upper lip. Warm to the touch. No induration. No lesions noted. HEAD: Atraumatic. Normocephalic. No temporal or scalp tenderness. EYES: Pupils equal round and reactive. Extraocular motions intact. No scleral icterus. No injection or drainage. ENT: Nose without bleeding, purulent drainage or septal hematoma. Throat without erythema, tonsillar hypertrophy or exudate. Uvula midline. Airway patent. NECK: Trachea midline. No JVD or lymphadenopathy. Supple, nontender, no meningeal signs. CARDIOVASCULAR: Regular rate and rhythm without murmurs, gallops, or rubs. RESPIRATORY: Clear to auscultation. Breath sounds equal bilaterally. No wheezes , rales, or rhonchi. GASTROINTESTINAL: Abdomen soft, non-tender, nondistended. No hepato-splenomegaly , or palpable masses. No guarding. MUSCULOSKELETAL: Extremities without clubbing, cyanosis, or edema. No joint tenderness, effusion, or edema noted. No calf tenderness. Negative Homans sign bilaterally. NEUROLOGICAL: Awake and alert. Cranial nerves II through XII intact. Motor and sensory grossly within normal limits. Normal speech. Laboratory Laboratory Tests Test 09/08/17 09:30 09/08/17 12:37 09/08/17 15:55 09/08/17 17:15 White Blood Count 27.8 23.9 Red Blood Count 5.01 4.43 Hemoglobin 14.8 13.3 Hematocrit 43.9 38.9 Mean Corpuscular Volume 87.7 87.9 Mean Corpuscular Hemoglobin 29.5 30.1 Mean Corpuscular Hemoglobin Concent 33.7 34.3 Red Cell Distribution Width 12.1 12.0 Platelet Count 204 158 Mean Platelet Volume 9.9 9.7 Neutrophils (%) (Auto) 83.7 90.9 Lymphocytes (%) (Auto) 8.9 6.3 Monocytes (%) (Auto) 7.1 2.6 Eosinophils (%) (Auto) 0.0 0.0 Basophils (%) (Auto) 0.3 0.2 Neutrophils # (Auto) 23.3 21.7 Lymphocytes # (Auto) 2.5 1.5 Monocytes # (Auto) 2.0 0.6 Eosinophils # (Auto) 0.0 0.0 Basophils # (Auto) 0.1 0.0 CBC Comment DIFF FINAL DIFF FINAL Differential Comment Lactic Acid Level 2.5 1.3 Urine Color LIGHT-YELLOW Urine Turbidity HAZY Urine pH 6.0 Urine Specific [employer] 1.008 Urine Protein TRACE Urine Glucose (UA) 300 Urine Ketones 10 Urine Occult Blood NEG Urine Nitrite NEG Urine Bilirubin NEG Urine Urobilinogen LESS THAN 2.0 Urine Leukocyte Esterase LARGE Urine RBC 6 Urine WBC 24 Urine Squamous Epithelial Cells 2 Urine Amorphous Sediment RARE Urine Bacteria MANY Urine Mucus FEW Microscopic Urinalysis Comment CATH-CULTURE IND Date/Time Source Procedure Growth Status 09/08/17 09:40 Blood Peripheral Aerobic Blood Culture Pending Received 09/08/17 09:40 Blood Peripheral Anaerobic Blood Culture Pending Received 09/08/17 17:15 Urine Catheterized Urine Urine Culture Pending Received Result Diagram: 09/08/17 1555 Caprini VTE Risk Assessment Caprini VTE Risk Assessment: No/Low Risk (score <= 1) Caprini Risk Assessment Model Point Value = 1 Point Value = 2 Point Value = 3 Point Value = 5 Age 41-60 Minor surgery BMI > 25 kg/m2 Swollen legs Varicose veins or History of unexplained or recurrent spontaneous Oral contraceptives or hormone replacement Sepsis (< 1 month) Serious lung disease, including pneumonia (< 1 month) Abnormal pulmonary function Acute myocardial infarction Congestive heart failure (< 1 month) History of inflammatory bowel disease Medical patient at bed rest Age 61-74 Arthroscopic surgery Major open surgery (> 45 min) Laparoscopic surgery (> 45 min) Malignancy Confined to bed (> 72 hours) Immobilizing plaster cast Central venous access Age >= 75 History of VTE Family history of VTE Factor V Leiden Prothrombin [id number] Lupus anticoagulant Anticardiolipin antibodies Elevated serum homocysteine Heparin-induced thrombocytopenia Other congenital or acquired thrombophilia Stroke (< 1 month) Elective arthroplasty Hip, pelvis, or leg fracture Acute spinal cord injury (< 1 month) Prophylaxis Regimen Total Risk Factor Score Risk Level Prophylaxis Regimen 0-1 Low Early ambulation 2 Moderate Order ONE of the following: *Sequential Compression Device (SCD) *Heparin 5000 units SQ BID 3-4 Higher Order ONE of the following medications: *Heparin 5000 units SQ TID *Enoxaparin/Lovenox 40 mg SQ daily (WT < 150 kg, CrCl > 30 mL/min) *Enoxaparin/Lovenox 30 mg SQ daily (WT < 150 kg, CrCl > 10-29 mL/min) *Enoxaparin/Lovenox 30 mg SQ BID (WT < 150 kg, CrCl > 30 mL/min) AND/OR *Sequential Compression Device (SCD) 5 or more Highest Order ONE of the following medications: *Heparin 5000 units SQ TID (Preferred with Epidurals) *Enoxaparin/Lovenox 40 mg SQ daily (WT < 150 kg, CrCl > 30 mL/min) *Enoxaparin/Lovenox 30 mg SQ daily (WT < 150 kg, CrCl > 10-29 mL/min) *Enoxaparin/Lovenox 30 mg SQ BID (WT < 150 kg, CrCl > 30 mL/min) AND *Sequential Compression Device (SCD) Assessment and Plan Assessment and Plan 52-year-old female with a past medical history significant for type 2 diabetes mellitus and rheumatoid arthritis presents with a 2 day history of red, swollen face. The patient denies any shortness of breath or throat tightness. In the ED she was found to be septic with an elevated lactic acid of 2.5 and a leukocytosis of 27.8. She was also tachycardic to 124. 1. UTI/sepsis UA significant for urinary tract infection, urine cultures pending Blood cultures pending Lactic acidemia resolved with IV fluids, current lactic acid 1.3 Continue IV fluid hydration Rocephin 2. Allergic reaction/facial swelling Patient with a 2 day history of red, warm swollen face IV Benadryl and Solu-Medrol for treatment of possible allergic reaction Unclear etiology, continue to monitor 3. Type 2 diabetes mellitus Sliding scale insulin Holding home metformin FEN Heart healthy diet NS at 75 cc/hr Electrolytes: monitor and replete prn Heparin Physician Certification 2 Midnight Certification Type: Admission for Inpatient Services Order for Inpatient Services The services are ordered in accordance with Medicare regulations or non- Medicare payer requirements, as applicable. In the case of services not specified as inpatient-only, they are appropriately provided as inpatient services in accordance with the 2-midnight benchmark. Estimated LOS (days): 2 2 days is the estimated time the patient will need to remain in the hospital, assuming treatment plan goals are met and no additional complications. Post-Hospital Plan: Not yet determined Mariah Luna MD Sep 08, 2017 20:26
[2017-09-08 21:28] VITALS: BP 97/56; PULSE 76; RESP 18; TEMP 99.1; O2SAT 98
[2017-09-08] MEDS: HEPARIN SODIUM - SQ 10,000 UNITS/ML VIAL SQ SCH (22:15)
[2017-09-08] MEDS: SODIUM CHLOR 0.45% 1000 ML INJ 1,000 ML IV SCH (22:15)
[2017-09-08] MEDS: GABAPENTIN 100 MG CAP PO SCH (22:15)
[2017-09-08] MEDS: DOCUSATE SODIUM 50 MG/SENNA 8.6 MG TAB PO SCH (22:15)
[2017-09-08] MEDS: SODIUM CHLORIDE 0.9% FLUSH 10 ML FLUSH IV FLUSH SCH (22:16)
[2017-09-08] MEDS: methylPREDNISolone SOD SUCC 40 MG/1 ML VIAL IV PUSH SCH (22:16)
[2017-09-08] MEDS: INSULIN ASPART SUPPLEMENTAL SCALE SQ SCH (22:31)
[2017-09-09 00:35] VITALS: BP 94/55; PULSE 74; RESP 18; TEMP 97.6; O2SAT 96
[2017-09-09] MEDS: methylPREDNISolone SOD SUCC 40 MG/1 ML VIAL IV PUSH SCH ×4 (04:30→21:50)
[2017-09-09] MEDS: HEPARIN SODIUM - SQ 10,000 UNITS/ML VIAL SQ SCH ×3 (05:24→21:51)
[2017-09-09 06:59] LABS: AUTOMATED NEUTROPHIL # 20.5 TH/MM3 (1.8-7.7); HEMATOCRIT 40.1 % (35.0-46.0); HEMO FLAGS DIFF FINAL; LYMPHOCYTE # 1.6 TH/MM3 (1.0-4.8); MEAN CELL VOLUME 90.1 FL (80.0-100.0); MEAN CORPUSCULAR HEMOGLOBIN 30.3 PG (27.0-34.0); MEAN CORPUSCULAR HGB CONC 33.6 % (32.0-36.0); MONO % 2.7 % (0.0-8.0); NEUT % 90.3 % (16.0-70.0); PLATELET COUNT 155 TH/MM3 (150-450); RED BLOOD COUNT 4.45 MIL/MM3 (4.00-5.30); RED CELL DISTRIBUTION WIDTH 12.3 % (11.6-17.2); WHITE BLOOD COUNT 22.7 TH/MM3 (4.0-11.0)
[2017-09-09 07:35] LABS: ALKALINE PHOSPHATASE 114 U/L (45-117); ALT (GPT) 19 U/L (10-53); ANION GAP 13 MEQ/L (5-15); AST (GOT) 20 U/L (15-37); BICARBONATE 16.4 MEQ/L (21.0-32.0); BLOOD UREA NITROGEN 19 MG/DL (7-18); CHLORIDE 105 MEQ/L (98-107); GLOMERULAR FILTRATION RATE 91 ML/MIN (>89); SODIUM (NA) 134 MEQ/L (136-145); TOTAL BILIRUBIN ADULT 0.3 MG/DL (0.2-1.0)
[2017-09-09 07:53] LABS: POTASSIUM 2.7 MEQ/L (3.5-5.1)
[2017-09-09 08:00] VITALS: BP 94/53; PULSE 61; RESP 20; TEMP 96.9; O2SAT 97
[2017-09-09] MEDS: DOCUSATE SODIUM 50 MG/SENNA 8.6 MG TAB PO SCH ×2 (08:46→21:51)
[2017-09-09] MEDS: FOLIC ACID 1 MG TAB PO SCH (08:46)
[2017-09-09] MEDS: INSULIN ASPART SUPPLEMENTAL SCALE SQ SCH ×4 (08:46→21:51)
[2017-09-09] MEDS: GABAPENTIN 100 MG CAP PO SCH ×2 (08:47→21:50)
[2017-09-09] MEDS: SODIUM CHLORIDE 0.9% FLUSH 10 ML FLUSH IV FLUSH SCH ×2 (08:47→21:50)
[2017-09-09] MEDS ORDERED: SODIUM CHLORID 0.9% 500 ML INJ 500 ML IV ONE (11:15)
[2017-09-09] MEDS ORDERED: POTASSIUM CHLORIDE 25 MEQ EFFERVESCENT TAB PO ONE (11:15)
[2017-09-09] MEDS ORDERED: POTASSIUM CHLORIDE 10 MEQ CONTROLLED RELEASE TAB PO ONE (11:15)
[2017-09-09 12:00] VITALS: BP 100/60; PULSE 82; RESP 20; TEMP 99.1; O2SAT 98
[2017-09-09] MEDS: SODIUM CHLOR 0.45% 1000 ML INJ 1,000 ML IV SCH ×2 (14:46→21:52)
[2017-09-09 16:00] VITALS: BP 99/57; PULSE 68; RESP 20; TEMP 97.3; O2SAT 99
[2017-09-09] MEDS ORDERED: cefTRIAXone INJ 1,000 MG in SODIUM CHLORIDE 0.9% INJ 100 ML IV SCH (18:00)
[2017-09-09 20:00] VITALS: BP 114/64; PULSE 58; RESP 17; TEMP 96.1; O2SAT 98
--- NOTE | 2017-09-09 23:45 | HHI.PR ---
Subjective Remarks Patient states erythema in face is improving. denies cp/sob c/o pain in BL knees and left hip. hypokalemia Objective Vitals Vital Signs Date Time Temp Pulse Resp B/P (MAP) Pulse Ox O2 Delivery O2 Flow Rate FiO2 09/09/17 20:00 96.1 58 17 114/64 (81) 98 09/09/17 16:00 97.3 68 20 99/57 (71) 99 09/09/17 12:00 99.1 82 20 100/60 (73) 98 09/09/17 08:00 96.9 61 20 94/53 (67) 97 09/09/17 00:35 97.6 74 18 94/55 (68) 96 I/O 09/09/17 09/09/17 09/09/17 09/10/17 09/10/17 09/10/17 07:00 15:00 23:00 07:00 15:00 23:00 Intake Total 1018 ml 1100 ml 1200 ml Output Total 300 ml 1000 ml Balance 718 ml 1100 ml 200 ml Intake Oral 500 ml 120 ml 1200 ml IV Total 518 ml 980 ml Output Urine Total 300 ml 1000 ml Result Diagram: 09/09/1761909/09/17 06 Imaging Last Impressions Chest X-Ray 09/08/17911 Signed Impressions: Service Date/Time: Friday, September 08, 2017 09:41 - CONCLUSION: No acute disease. Aleksander Monteiro MD FACR Objective Remarks AAOx3 Erythema warmth and tenderness present in both sides of face in both cheeks and extending to lower part of forehead. Lungs clear S1S2 RRR abdomen soft, nt, nd Bl knee pain on palpation along with possible joint effusion Medications and IVs Current Medications Medications (Trade) Dose Ordered Sig/Lionel Route Start Time Stop Time Status Last Admin Sodium Chloride 1,000 ml @ 75 mls/hr [id number] IV 09/08/17 20:05 09/09/17 21:52 (NS Flush) 2 ml UNSCH PRN IV FLUSH 09/08/17 20:15 (NS Flush) 2 ml BID IV FLUSH 09/08/17 21:00 09/09/17 21:50 (Tylenol) 650 mg Q4H PRN PO 09/08/17 20:15 (Zofran Inj) 4 mg Q6H PRN IVP 09/08/17 20:15 (Heparin Inj) 5,000 units Q8H SQ 09/08/17 22:00 09/09/17 21:51 (Narcan Inj) 0.4 mg UNSCH PRN IV PUSH 09/08/17 20:15 (Leeann-Colace) 1 tab BID PO 09/08/17 21:00 09/09/17 21:51 (Milk Of Magnesia Liq) 30 ml Q12H PRN PO 09/08/17 20:15 (Senokot) 17.2 mg Q12H PRN PO 09/08/17 20:15 (Dulcolax Supp) 10 mg DAILY PRN RECTAL 09/08/17 20:15 (Lactulose Liq) 30 ml DAILY PRN PO 09/08/17 20:15 (Benadryl Inj) 25 mg Q6H PRN IM 09/08/17 20:15 Ceftriaxone Sodium 1000 mg/ Sodium Chloride 100 ml @ 200 mls/hr Q24H IV 09/09/17 18:00 09/09/17 17:42 (D50w (Vial) Inj) 50 ml UNSCH PRN IV PUSH 09/08/17 20:15 (Glucagon Inj) 1 mg UNSCH PRN OTHER 09/08/17 20:15 (NovoLOG SUPPLEMENTAL SCALE) 1 ACHS SLIDING SCALE SQ 09/08/17 21:00 09/09/17 21:51 (Folate) 1 mg DAILY PO 09/09/17 09:00 09/09/17 08:46 (Neurontin) 100 mg BID PO 09/08/17 21:00 09/09/17 21:50 (SoluMEDROL INJ) 40 mg Q6H IV PUSH 09/08/17 21:00 09/09/17 21:50 (Pneumovax-23 Inj) 25 mcg ONCE ONCE IM 09/10/17 10:00 09/10/17 10:01 (Flu (Quadrivalent) Vaccine Inj) 0.5 ml ONCE ONCE IM 09/10/17 10:00 09/10/17 10:01 A/P Assessment and Plan 52-year-old female with a past medical history significant for type 2 diabetes mellitus and rheumatoid arthritis presents with a 2 day history of red, swollen face. The patient denies any shortness of breath or throat tightness. In the ED she was found to be septic with an elevated lactic acid of 2.5 and a leukocytosis of 27.8. She was also tachycardic to 124. 1. UTI/sepsis UA significant for urinary tract infection, urine cultures pending Blood cultures pending Lactic acidemia resolved with IV fluids, current lactic acid 1.3 Continue IV fluid hydration 09/09 urine culture id growing gram negative vick. Continue antibiotics 2. Facial cellulitis Patient with a 2 day history of red, warm swollen face IV Benadryl and Solu-Medrol for treatment of possible allergic reaction 09/09 doubt allergic reaction. Will switch antibiotics to IV Vancomycin and IV Levaquin 3. Type 2 diabetes mellitus Sliding scale insulin Holding home metformin 09/09 blood sugars very elevated - will start Levemir 4.Leukocytosis Likely due to sepsis. trending down. monitor cbc w diff. 5. Severe hypokalemia Replace orally and continue to monitor. 6. Hypotension Ordered IV normal saline bolus. Continue IV fluids. FEN Heart healthy diet NS at 75 cc/hr Electrolytes: monitor and replete prn Heparin Andrea Carreon MD Sep 09, 2017 23:45
[2017-09-10] VITALS: BP 112/58; PULSE 58; RESP 17; TEMP 96.7; O2SAT 100
[2017-09-10] MEDS: LEVOFLOXACIN 750 MG PREMIX INJ 150 ML IV SCH (02:48)
[2017-09-10] MEDS: methylPREDNISolone SOD SUCC 40 MG/1 ML VIAL IV PUSH SCH ×4 (02:48→20:48)
[2017-09-10] MEDS: VANCOMYCIN INJ 1,000 MG in SODIUM CHLOR 0.9% 250 ML INJ 250 ML IV SCH ×2 (02:48→16:07)
[2017-09-10] MEDS: HEPARIN SODIUM - SQ 10,000 UNITS/ML VIAL SQ SCH ×3 (04:55→20:48)
[2017-09-10 07:30] VITALS: BP 111/67; PULSE 84; RESP 12; TEMP 97.4; O2SAT 100
[2017-09-10] MEDS: INSULIN DETEMIR 100 UNITS/ML VIAL SQ SCH ×2 (08:37→22:06)
[2017-09-10] MEDS: INSULIN ASPART SUPPLEMENTAL SCALE SQ SCH ×4 (08:37→22:06)
[2017-09-10 09:14] LABS: AUTOMATED NEUTROPHIL # 17.3 TH/MM3 (1.8-7.7); EOSINOPHIL % 0.1 % (0.0-4.0); HEMATOCRIT 34.1 % (35.0-46.0); HEMO FLAGS DIFF FINAL; LYMPH % 7.1 % (9.0-44.0); LYMPHOCYTE # 1.4 TH/MM3 (1.0-4.8); MEAN CELL VOLUME 87.9 FL (80.0-100.0); MEAN CORPUSCULAR HEMOGLOBIN 30.4 PG (27.0-34.0); MEAN CORPUSCULAR HGB CONC 34.6 % (32.0-36.0); MONO % 2.1 % (0.0-8.0); NEUT % 90.7 % (16.0-70.0); PLATELET COUNT 180 TH/MM3 (150-450); RED BLOOD COUNT 3.88 MIL/MM3 (4.00-5.30); RED CELL DISTRIBUTION WIDTH 12.1 % (11.6-17.2); WHITE BLOOD COUNT 19.1 TH/MM3 (4.0-11.0)
[2017-09-10] MEDS: GABAPENTIN 100 MG CAP PO SCH ×2 (09:16→20:48)
[2017-09-10] MEDS: DOCUSATE SODIUM 50 MG/SENNA 8.6 MG TAB PO SCH ×2 (09:17→20:49)
[2017-09-10] MEDS: FOLIC ACID 1 MG TAB PO SCH (09:18)
[2017-09-10] MEDS: SODIUM CHLORIDE 0.9% FLUSH 10 ML FLUSH IV FLUSH SCH ×2 (09:19→20:48)
[2017-09-10 09:52] LABS: ALKALINE PHOSPHATASE 99 U/L (45-117); ALT (GPT) 14 U/L (10-53); ANION GAP 11 MEQ/L (5-15); AST (GOT) 13 U/L (15-37); BICARBONATE 16.9 MEQ/L (21.0-32.0); BLOOD UREA NITROGEN 18 MG/DL (7-18); CHLORIDE 110 MEQ/L (98-107); GLOMERULAR FILTRATION RATE 130 ML/MIN (>89); MAGNESIUM 1.5 MG/DL (1.5-2.5); SODIUM (NA) 138 MEQ/L (136-145); TOTAL BILIRUBIN ADULT 0.2 MG/DL (0.2-1.0)
[2017-09-10] MEDS ORDERED: INFLUENZA VIRUS VACCINE (QUADRIVALENT) 0.5 ML SYR IM ONE (10:00)
[2017-09-10] MEDS ORDERED: PNEUMOCOCCAL POLYVALENT INJ 25 MCG/0.5 ML SYR IM ONE (10:00)
[2017-09-10 10:12] LABS: POTASSIUM 2.7 MEQ/L (3.5-5.1)
[2017-09-10] MEDS ORDERED: POTASSIUM CHLORIDE 10 MEQ CONTROLLED RELEASE TAB PO ONE (10:45)
[2017-09-10 11:30] VITALS: BP 107/56; PULSE 77; RESP 16; TEMP 97.8; O2SAT 98
[2017-09-10] MEDS: POTASSIUM CHLOR 20 MEQ PREMIX 100 ML IV SCH ×2 (13:00→16:23)
--- NOTE | 2017-09-10 15:03 | RADRPT ---
EXAM DATE/TIME: 09/10/2017 14:37 [facility] COMPARISON: No previous studies available for comparison. INDICATIONS : Left knee pain due to arthritis. MEDICAL HISTORY : Neuropathy. Asthma. Diabetic. SURGICAL HISTORY : None. ENCOUNTER: Subsequent ACUITY: 2 days PAIN SCORE: 8/10 LOCATION: Left knee FINDINGS: Limited AP and lateral views of the left knee were obtained and demonstrate diffuse osteopenia and no rmal alignment. There is joint space narrowing, sclerosis and mild hypertrophic change in medial comp artment. There is mild spurring in the patellofemoral joint. There is no definite effusion or joint b milad. CONCLUSION: 1. Mild osteoarthritic change greatest in the medial compartment. 2. Moderate osteopenia. Rian Pisano MD on September 10, 2017 at 15:00 Board Certified Radiologist. This report was verified electronically.
--- NOTE | 2017-09-10 15:09 | RADRPT ---
EXAM DATE/TIME: 09/10/2017 14:33 [facility] COMPARISON: No previous studies available for comparison. INDICATIONS : Left hip pain due to arthritis. MEDICAL HISTORY : Arthritis. Neuropathy. Asthma. Diabetic. SURGICAL HISTORY : None. ENCOUNTER: Initial ACUITY: 2 days PAIN SCORE: 8/10 LOCATION: Left hip FINDINGS: A single AP view of the pelvis was obtained and a coned-down AP view of the left hip was also obtaine d. Moderate to severe degenerative changes noted in the left hip with superior joint space loss, scleros is and spurring. Mild degenerative changes noted in the right hip with superior joint space loss and sclerosis. There is diffuse osteopenia with no evidence of fracture. CONCLUSION: 1. Moderate to severe osteoarthritic change in the left hip. 2. Milder degenerative changes in the right hip. Rian Pisano MD on September 10, 2017 at 15:05 Board Certified Radiologist. This report was verified electronically.
--- NOTE | 2017-09-10 15:10 | RADRPT ---
EXAM DATE/TIME: 09/10/2017 14:38 [place] COMPARISON: No previous studies available for comparison. INDICATIONS : Right knee pain due to arthritis. MEDICAL HISTORY : Arthritis. Neuropathy. Asthma. Diabetic. SURGICAL HISTORY : None. ENCOUNTER: Subsequent ACUITY: 2 days PAIN SCORE: 8/10 LOCATION: Right knee FINDINGS: Limited AP and lateral views of the right knee were obtained and demonstrate osteopenia and normal al ignment. There is no acute fracture. There are mild degenerative changes with slight sclerosis. There is minimal spurring. There is no definite joint body or effusion. CONCLUSION: 1. Mild osteoarthritic change. 2. Osteopenia. Rian Pisano MD on September 10, 2017 at 15:08 Board Certified Radiologist. This report was verified electronically.
[2017-09-10 16:00] VITALS: BP 115/55; PULSE 56; RESP 16; TEMP 96.8; O2SAT 99
--- NOTE | 2017-09-10 16:39 | HHI.PR ---
Subjective Remarks Deferred entry patient seen 12:10 pm face still swollen and erythematous. Patient denies fevers or chills. c/o bl knee pain and left hip pain wbc continues to trend down. Objective Vitals Vital Signs Date Time Temp Pulse Resp B/P (MAP) Pulse Ox O2 Delivery O2 Flow Rate FiO2 09/10/17 11:30 97.8 77 16 107/56 (73) 98 09/10/17 07:30 97.4 84 12 111/67 (82) 100 09/10/17 00:00 96.7 58 17 112/58 (76) 100 09/09/17 20:00 96.1 58 17 114/64 (81) 98 I/O 09/09/17 09/09/17 09/09/17 09/10/17 09/10/17 09/10/17 07:00 15:00 23:00 07:00 15:00 23:00 Intake Total 1018 ml 1100 ml 2440 ml 390 ml 250 ml Output Total 300 ml 1000 ml Balance 718 ml 1100 ml 1440 ml 390 ml 250 ml Intake Oral 500 ml 120 ml 1440 ml 240 ml IV Total 518 ml 980 ml 1000 ml 150 ml 250 ml Output Urine Total 300 ml 1000 ml # Voids 1 2 Result Diagram: 09/10/1780409/10/17804 Objective Remarks AAOx3 Erythema warmth and tenderness present in both sides of face in both cheeks and extending to lower part of forehead. there is improved induration however erythema seems same. Lungs clear S1S2 RRR abdomen soft, nt, nd Bl knee pain on palpation, Left hip with decreased ROM and tender to palpation. Medications and IVs Current Medications Medications (Trade) Dose Ordered Sig/Lionel Route Start Time Stop Time Status Last Admin Sodium Chloride 1,000 ml @ 75 mls/hr [id number] IV 09/08/17 20:05 09/09/17 21:52 (NS Flush) 2 ml UNSCH PRN IV FLUSH 09/08/17 20:15 (NS Flush) 2 ml BID IV FLUSH 09/08/17 21:00 09/10/17 09:19 (Tylenol) 650 mg Q4H PRN PO 09/08/17 20:15 (Zofran Inj) 4 mg Q6H PRN IVP 09/08/17 20:15 (Heparin Inj) 5,000 units Q8H SQ 09/08/17 22:00 09/09/17 21:51 (Narcan Inj) 0.4 mg UNSCH PRN IV PUSH 09/08/17 20:15 (Leeann-Colace) 1 tab BID PO 09/08/17 21:00 09/10/17 09:17 (Milk Of Magnesia Liq) 30 ml Q12H PRN PO 09/08/17 20:15 (Senokot) 17.2 mg Q12H PRN PO 09/08/17 20:15 (Dulcolax Supp) 10 mg DAILY PRN RECTAL 09/08/17 20:15 (Lactulose Liq) 30 ml DAILY PRN PO 09/08/17 20:15 (Benadryl Inj) 25 mg Q6H PRN IM 09/08/17 20:15 (D50w (Vial) Inj) 50 ml UNSCH PRN IV PUSH 09/08/17 20:15 (Glucagon Inj) 1 mg UNSCH PRN OTHER 09/08/17 20:15 (NovoLOG SUPPLEMENTAL SCALE) 1 ACHS SLIDING SCALE SQ 09/08/17 21:00 09/10/17 08:37 (Folate) 1 mg DAILY PO 09/09/17 09:00 09/10/17 09:18 (Neurontin) 100 mg BID PO 09/08/17 21:00 09/10/17 09:16 (SoluMEDROL INJ) 40 mg Q6H IV PUSH 09/08/17 21:00 09/10/17 02:48 Vancomycin HCl 1000 mg/Sodium Chloride 250 ml @ 250 mls/hr Q12H IV 09/10/17 01:00 09/10/17 16:07 Levofloxacin/ Dextrose 150 ml @ 100 mls/hr Q24H IV 09/10/17 01:00 09/10/17 02:48 (Levemir Inj) 10 units Q12HR SQ 09/10/17 09:00 09/10/17 08:37 A/P Problem List: (1) Sepsis ICD Code: A41.9 - Sepsis, unspecified organism Status: Acute Plan: Present on admission, the patient presented with leukocytosis, heart rate of 124, lactic acid 2.5 and a urinary tract infection. The patient was admitted to the medical floor, started on IV fluids and IV Rocephin. Sepsis possibly secondary to UTI, but patient also has suspected cellulitis in the face. Blood cultures obtained and negative to date IV Rocephin was discontinued and the patient was placed on IV Levaquin and IV vancomycin. Consult infectious disease. (2) UTI (urinary tract infection) ICD Code: N39.0 - Urinary tract infection, site not specified Status: Acute Plan: Urine culture is growing Escherichia coli - continue IV vancomycin and IV Levaquin. (3) Leukocytosis ICD Code: D72.829 - Elevated white blood cell count, unspecified Status: Acute Plan: Likely secondary to urinary tract infection and facial cellulitis. Trending down slowly. Continue to monitor CBC with differential (4) Facial cellulitis ICD Code: L03.211 - Cellulitis of face Status: Acute Plan: As above. Patient is on Solu-Medrol 40 mg IV every 6 hours. Will start taper. (5) Hyponatremia ICD Code: E87.1 - Hypo-osmolality and hyponatremia Status: Resolved Plan: Likely due to hypovolemic hyponatremia secondary to dehydration. Much improved. (6) Hypokalemia ICD Code: E87.6 - Hypokalemia Status: Acute Plan: Patient with severe hypokalemia with a potassium of 2.9. I will replace IV and orally and continue to monitor BMP. (7) Uncontrolled diabetes mellitus ICD Code: E11.65 - Type 2 diabetes mellitus with hyperglycemia Plan: This out with blood sugars in the 300s. I will place on basal bolus therapy with insulin Levemir and insulin NovoLog. Continue SSI with insulin NovoLog. (8) Hypophosphatemia ICD Code: E83.39 - Other disorders of phosphorus metabolism Plan: Likely secondary to poor nutrition. I will start the patient on Neutra- Phos. Continue to monitor phosphorus levels. (9) Hyperchloremic metabolic acidosis ICD Code: E87.2 - Acidosis Plan: DC normal saline, I will start on ringers lactate. (10) Rheumatoid arthritis ICD Code: M06.9 - Rheumatoid arthritis, unspecified Plan: Patient presents with pain in bilateral knees and left hip. Patient is on methotrexate at home, however she states she ran out of the medication long time ago. I will continue to hold methotrexate for now and order a bilateral knee x-ray and the left hip x-ray. Will also send Wednesday factor, ESR, CRP, VALE. Assessment and Plan GI prophylaxis: On Protonix since patient is on steroids. DVT prophylaxis: SCDs. Discharge Planning Continue to monitor in the medical floor, patient still with significant erythema and swelling of the face, leukocytosis and imaging pending. Problem Qualifiers (1) Sepsis: Qualified Codes: A41.9 - Sepsis, unspecified organism (2) UTI (urinary tract infection): Qualified Codes: N30.00 - Acute cystitis without hematuria (3) Leukocytosis: Qualified Codes: D72.829 - Elevated white blood cell count, unspecified (4) Uncontrolled diabetes mellitus: (5) Rheumatoid arthritis: Qualified Codes: M06.9 - Rheumatoid arthritis, unspecified Andrea Carreon MD Sep 10, 2017 16:39
--- NOTE | 2017-09-10 17:23 | PD.ID.CON ---
History of Present Illness Service ID Consult Requested By Dr Rodriguez Reason for Consult sepsis,facial cellulitis Primary Care Physician No Primary Care Physician Diagnoses: History of Present Illness 52 yo morbidly obese female with arthritis tried MJ tea to help her pains and presented with c/o flushed face On arrival patient was tachycardicup to 124, with significant leukocytosis to 27.8 with a left shift. She has mild lactic acidosis (2.5) UA significant for large leukocyte esterase, 24 WBCs and many urine bacteria. Grew eventiually E.coli No h/o ny dysuria, hematuria. + Frequency Despite treatment in the emergency department with hydroxyzine and Benadryl, her face remains red and swollen, though gradually eetre Pt was admitted, started on broad spectrum aabx - currently on levaqin and vancomycin Her WBC improved down to 19K and blood clx are negative; lactic acidosis resolved Review of Systems Except as stated in HPI: all other systems reviewed are Neg Past Family Social History Allergies: Coded Allergies: penicillin G (Unverified Allergy, Intermediate, Rash, 09/08/17) Past Medical History Type 2 diabetes mellitus Rheumatoid arthritis Past Surgical History None Active Ordered Medications Medications where reviewed in EMR Antibiotics Include: levaquine vancomycin Family History Both parents with diabetes mellitus. Social History Marijuana use 1, 4 days ago. Denies smoking, alcohol and illicit drugs Physical Exam Vital Signs Vital Signs Date Time Temp Pulse Resp B/P (MAP) Pulse Ox O2 Delivery O2 Flow Rate FiO2 09/10/17 16:00 96.8 56 16 115/55 (75) 99 09/10/17 11:30 97.8 77 16 107/56 (73) 98 09/10/17 07:30 97.4 84 12 111/67 (82) 100 09/10/17 00:00 96.7 58 17 112/58 (76) 100 09/09/17 20:00 96.1 58 17 114/64 (81) 98 Physical Exam CONSTITUTIONAL/GENERAL: This is an obese patient, in no apparent distress. TUBES/LINES/DRAINS: SKIN: No jaundice, rashes, or lesions. Ecchymoses on upper extremities. No wounds seen anteriorly. Skin temperature appropriate. Not diaphoretic. HEAD: Atraumatic. Normocephalic. Face with symmetric b/l edema involving periorbital area, nose, malar areas with some peeling EYES: Pupils equal and round and reactive. Extraocular motions intact. No scleral icterus. No injection or drainage. Fundi not examined. ENT: Hearing grossly normal. Nose without bleeding or purulent drainage. Oral mucosae without visible erythema, exudates, masses, or lesions. NECK: Trachea midline. Supple, nontender. CARDIOVASCULAR: Regular rate and rhythm without murmurs, gallops, or rubs. No JVD. Peripheral pulses symmetric. RESPIRATORY/CHEST: Symmetric, unlabored respirations. Clear to auscultation. Breath sounds equal bilaterally. No wheezes, rales, or rhonchi. GASTROINTESTINAL: Abdomen soft, non-tender, nondistended. No hepato-splenomegaly , or palpable masses. No guarding. Bowel sounds present. GENITOURINARY: Without palpable bladder distension. No suprapubic tendernedd MUSCULOSKELETAL: Extremities without clubbing, cyanosis, or edema. No joint tenderness or effusion noted. No calf tenderness. No mottling or clubbing. LYMPHATICS: No palpable cervical or supraclavicular adenopathy. NEUROLOGICAL: Awake and alert. Motor and sensory grossly within normal limits. Follows commands. Clear speech. Moves all extremities. PSYCHIATRIC: No obvious anxiety/depression. no apparent hallucinations or other psychotic thought process. Laboratory Laboratory Tests Test 09/10/17 08:05 White Blood Count 19.1 Red Blood Count 3.88 Hemoglobin 11.8 Hematocrit 34.1 Mean Corpuscular Volume 87.9 Mean Corpuscular Hemoglobin 30.4 Mean Corpuscular Hemoglobin Concent 34.6 Red Cell Distribution Width 12.1 Platelet Count 180 Mean Platelet Volume 10.0 Neutrophils (%) (Auto) 90.7 Lymphocytes (%) (Auto) 7.1 Monocytes (%) (Auto) 2.1 Eosinophils (%) (Auto) 0.1 Basophils (%) (Auto) 0.0 Neutrophils # (Auto) 17.3 Lymphocytes # (Auto) 1.4 Monocytes # (Auto) 0.4 Eosinophils # (Auto) 0.0 Basophils # (Auto) 0.0 CBC Comment DIFF FINAL Differential Comment Blood Urea Nitrogen 18 Creatinine 0.50 Random Glucose 245 Total Protein 6.9 Albumin 2.3 Calcium Level 7.7 Phosphorus Level 1.8 Magnesium Level 1.5 Alkaline Phosphatase 99 Aspartate Amino Transf (AST/SGOT) 13 Alanine Aminotransferase (ALT/SGPT) 14 Total Bilirubin 0.2 Sodium Level 138 Potassium Level 2.7 Chloride Level 110 Carbon Dioxide Level 16.9 Anion Gap 11 Estimat Glomerular Filtration Rate 130 Date/Time Source Procedure Growth Status 09/08/17 09:40 Blood Peripheral Aerobic Blood Culture - Preliminary NO GROWTH IN 2 DAYS Resulted 09/08/17 09:40 Blood Peripheral Anaerobic Blood Culture - Preliminary NO GROWTH IN 2 DAYS Resulted 09/08/17 17:15 Urine Catheterized Urine Urine Culture - Final Escherichia Coli Complete Result Diagram: 09/10/17 0805 09/10/17 0805 Imaging Last Impressions Knee X-Ray 09/10/17 0000 Signed Impressions: Service Date/Time: Sunday, September 10, 2017 14:38 - CONCLUSION: 1. Mild osteoarthritic change. 2. Osteopenia. Rian Pisano MD Hip and Pelvis X-Ray 09/10/17 0000 Signed Impressions: Service Date/Time: Sunday, September 10, 2017 14:33 - CONCLUSION: 1. Moderate to severe osteoarthritic change in the left hip. 2. Milder degenerative changes in the right hip. Rian Pisano MD Chest X-Ray 09/08/17 0912 Signed Impressions: Service Date/Time: Friday, September 08, 2017 09:41 - CONCLUSION: No acute disease. Aleksander Monteiro MD FACR Assessment and Plan Assessment and Plan Facial cellulitis vs allergic reaction to MJ) UTI E.coli cont current abc monitor clincially Elizabeth Lomeli MD Sep 10, 2017 17:23
[2017-09-10] MEDS: SODIUM CHLOR 0.45% 1000 ML INJ 1,000 ML IV SCH (18:15)
[2017-09-10 20:00] VITALS: BP 111/61; PULSE 74; RESP 19; TEMP 96.8; O2SAT 99
[2017-09-11] VITALS: BP 117/60; PULSE 58; RESP 19; TEMP 95.8; O2SAT 97
[2017-09-11] MEDS: LEVOFLOXACIN 750 MG PREMIX INJ 150 ML IV SCH (00:35)
[2017-09-11] MEDS: VANCOMYCIN INJ 1,000 MG in SODIUM CHLOR 0.9% 250 ML INJ 250 ML IV SCH ×2 (00:38→12:56)
[2017-09-11] MEDS: SODIUM CHLOR 0.45% 1000 ML INJ 1,000 ML IV SCH (00:38)
[2017-09-11] MEDS: HEPARIN SODIUM - SQ 10,000 UNITS/ML VIAL SQ SCH ×3 (05:05→21:23)
[2017-09-11] MEDS: methylPREDNISolone SOD SUCC 40 MG/1 ML VIAL IV PUSH SCH ×2 (05:05→08:24)
[2017-09-11 08:00] VITALS: BP 112/70; PULSE 80; RESP 16; TEMP 97.8; O2SAT 94
[2017-09-11] MEDS: GABAPENTIN 100 MG CAP PO SCH ×2 (08:23→21:12)
[2017-09-11] MEDS: FOLIC ACID 1 MG TAB PO SCH (08:23)
[2017-09-11] MEDS: DOCUSATE SODIUM 50 MG/SENNA 8.6 MG TAB PO SCH ×2 (08:23→21:12)
[2017-09-11] MEDS: INSULIN ASPART SUPPLEMENTAL SCALE SQ SCH ×4 (08:24→21:00)
[2017-09-11] MEDS: SODIUM CHLORIDE 0.9% FLUSH 10 ML FLUSH IV FLUSH SCH ×2 (08:25→21:00)
[2017-09-11] MEDS: INSULIN DETEMIR 100 UNITS/ML VIAL SQ SCH ×2 (08:25→21:00)
[2017-09-11 11:16] LABS: AUTOMATED NEUTROPHIL # 7.8 TH/MM3 (1.8-7.7); BASOPHIL % 0.1 % (0.0-2.0); HEMATOCRIT 34.6 % (35.0-46.0); HEMO FLAGS DIFF FINAL; LYMPH % 9.2 % (9.0-44.0); LYMPHOCYTE # 0.8 TH/MM3 (1.0-4.8); MEAN CELL VOLUME 87.6 FL (80.0-100.0); MEAN CORPUSCULAR HEMOGLOBIN 29.7 PG (27.0-34.0); MEAN CORPUSCULAR HGB CONC 33.9 % (32.0-36.0); MONO % 3.1 % (0.0-8.0); NEUT % 87.6 % (16.0-70.0); PLATELET COUNT 206 TH/MM3 (150-450); RED BLOOD COUNT 3.95 MIL/MM3 (4.00-5.30); RED CELL DISTRIBUTION WIDTH 12.2 % (11.6-17.2); WHITE BLOOD COUNT 8.9 TH/MM3 (4.0-11.0)
[2017-09-11 11:55] LABS: ALKALINE PHOSPHATASE 86 U/L (45-117); ALT (GPT) 15 U/L (10-53); ANION GAP 9 MEQ/L (5-15); AST (GOT) 11 U/L (15-37); BICARBONATE 20.4 MEQ/L (21.0-32.0); BLOOD UREA NITROGEN 17 MG/DL (7-18); CHLORIDE 109 MEQ/L (98-107); GLOMERULAR FILTRATION RATE 110 ML/MIN (>89); SODIUM (NA) 138 MEQ/L (136-145); TOTAL BILIRUBIN ADULT 0.2 MG/DL (0.2-1.0)
[2017-09-11 12:00] VITALS: BP 144/70; PULSE 57; RESP 18; TEMP 96.8; O2SAT 100
[2017-09-11 12:13] LABS: POTASSIUM 2.7 MEQ/L (3.5-5.1)
[2017-09-11] MEDS ORDERED: POTASSIUM BICARBONATE 25 MEQ EFFERVESCENT TAB PO ONE (12:45)
[2017-09-11] MEDS: LACTATED RINGER'S 1000 ML INJ 1,000 ML IV SCH ×2 (12:57→21:22)
--- NOTE | 2017-09-11 13:04 | HHI.PR ---
Subjective Remarks patient states hip and knee pain better Denies cp/sob facial swelling is much improved denies nausea, vomiting or abdominal pain afebrile with stable vital signs Objective Vitals Vital Signs Date Time Temp Pulse Resp B/P (MAP) Pulse Ox O2 Delivery O2 Flow Rate FiO2 09/11/17 08:00 97.8 80 16 112/70 (84) 94 09/11/17 00:00 95.8 58 19 117/60 (79) 97 09/10/17 20:00 96.8 74 19 111/61 (78) 99 09/10/17 16:00 96.8 56 16 115/55 (75) 99 I/O 09/10/17 09/10/17 09/10/17 09/11/17 09/11/17 09/11/17 07:00 15:00 23:00 07:00 15:00 23:00 Intake Total 390 ml 250 ml 1550 ml 640 ml Balance 390 ml 250 ml 1550 ml 640 ml Intake Oral 240 ml 1200 ml 240 ml IV Total 150 ml 250 ml 350 ml 400 ml # Voids 2 5 1 # Bowel Movements 1 Result Diagram: 09/11/17 1015 09/11/17 1015 Imaging Last Impressions Knee X-Ray 09/10/17 0000 Signed Impressions: Service Date/Time: Sunday, September 10, 2017 14:38 - CONCLUSION: 1. Mild osteoarthritic change. 2. Osteopenia. Rian Pisano MD Hip and Pelvis X-Ray 09/10/17 0000 Signed Impressions: Service Date/Time: Sunday, September 10, 2017 14:33 - CONCLUSION: 1. Moderate to severe osteoarthritic change in the left hip. 2. Milder degenerative changes in the right hip. Rian Pisano MD Chest X-Ray 09/08/17 0912 Signed Impressions: Service Date/Time: Friday, September 08, 2017 09:41 - CONCLUSION: No acute disease. Aleksander Monteiro MD FACR Objective Remarks AAOx3 Much improved erythema of the face. Lungs clear S1S2 RRR abdomen soft, nt, nd Bl knee pain on palpation, Left hip with decreased ROM and tender to palpation. Medications and IVs Current Medications Medications (Trade) Dose Ordered Sig/Lionel Route Start Time Stop Time Status Last Admin (NS Flush) 2 ml UNSCH PRN IV FLUSH 09/08/17 20:15 (NS Flush) 2 ml BID IV FLUSH 09/08/17 21:00 09/11/17 08:25 (Tylenol) 650 mg Q4H PRN PO 09/08/17 20:15 (Zofran Inj) 4 mg Q6H PRN IVP 09/08/17 20:15 (Heparin Inj) 5,000 units Q8H SQ 09/08/17 22:00 09/10/17 20:48 (Narcan Inj) 0.4 mg UNSCH PRN IV PUSH 09/08/17 20:15 (Leeann-Colace) 1 tab BID PO 09/08/17 21:00 09/11/17 08:23 (Milk Of Magnesia Liq) 30 ml Q12H PRN PO 09/08/17 20:15 (Senokot) 17.2 mg Q12H PRN PO 09/08/17 20:15 (Dulcolax Supp) 10 mg DAILY PRN RECTAL 09/08/17 20:15 (Lactulose Liq) 30 ml DAILY PRN PO 09/08/17 20:15 (Benadryl Inj) 25 mg Q6H PRN IM 09/08/17 20:15 (D50w (Vial) Inj) 50 ml UNSCH PRN IV PUSH 09/08/17 20:15 (Glucagon Inj) 1 mg UNSCH PRN OTHER 09/08/17 20:15 (NovoLOG SUPPLEMENTAL SCALE) 1 ACHS SLIDING SCALE SQ 09/08/17 21:00 09/11/17 08:24 (Folate) 1 mg DAILY PO 09/09/17 09:00 09/11/17 08:23 (Neurontin) 100 mg BID PO 09/08/17 21:00 09/11/17 08:23 Vancomycin HCl 1000 mg/Sodium Chloride 250 ml @ 250 mls/hr Q12H IV 09/10/17 01:00 09/11/17 00:38 Levofloxacin/ Dextrose 150 ml @ 100 mls/hr Q24H IV 09/10/17 01:00 09/11/17 00:35 (Levemir Inj) 10 units Q12HR SQ 09/10/17 09:00 09/11/17 08:25 (Deltasone) 20 mg BID PO 09/11/17 21:00 UNV Lactated Ringer's 1,000 ml @ 84 mls/hr [id number] IV 09/11/17 12:45 UNV Potassium Chloride 100 ml @ 50 mls/hr Q2H IV 09/11/17 12:45 09/11/17 16:44 UNV (Effer-K Eff) 50 meq ONCE ONCE PO 09/11/17 12:45 09/11/17 12:46 UNV A/P Problem List: (1) Sepsis ICD Code: A41.9 - Sepsis, unspecified organism Status: Acute Plan: Present on admission, the patient presented with leukocytosis, heart rate of 124, lactic acid 2.5 and a urinary tract infection. The patient was admitted to the medical floor, started on IV fluids and IV Rocephin. Sepsis possibly secondary to UTI, but patient also has suspected cellulitis in the face. Blood cultures obtained and negative to date IV Rocephin was discontinued and the patient was placed on IV Levaquin and IV vancomycin. 09/11. Sepsis clinically resolved. ID consulted appreciate recommendations. DC Solumedrol and start prednisone taper. (2) UTI (urinary tract infection) ICD Code: N39.0 - Urinary tract infection, site not specified Status: Acute Plan: Urine culture is growing Escherichia coli - continue IV vancomycin and IV Levaquin. antibiotics as per ID. (3) Leukocytosis ICD Code: D72.829 - Elevated white blood cell count, unspecified Status: Acute Plan: Likely secondary to urinary tract infection and facial cellulitis. Trending down slowly. Continue to monitor CBC with differential 09/11 Resolved (4) Facial cellulitis ICD Code: L03.211 - Cellulitis of face Status: Acute Plan: Patient was started on Solu-Medrol 40 mg IV every 6 hours. 09/11 DC solumedrol and start oral prednisone. (5) Hyponatremia ICD Code: E87.1 - Hypo-osmolality and hyponatremia Status: Resolved Plan: Likely due to hypovolemic hyponatremia secondary to dehydration. 09/11 Resolved after IV fluid administration (6) Hypokalemia ICD Code: E87.6 - Hypokalemia Status: Acute Plan: K very low, continue to replace w IV KCL and oral potassium preparation. monitor BMP (7) Uncontrolled diabetes mellitus ICD Code: E11.65 - Type 2 diabetes mellitus with hyperglycemia Plan: This out with blood sugars in the 300s. I will place on basal bolus therapy with insulin Levemir and insulin NovoLog. Continue SSI with insulin NovoLog. Blood sugars likely uncontrolled due to steroids, check hemoglobin a1c (8) Hypophosphatemia ICD Code: E83.39 - Other disorders of phosphorus metabolism Plan: Likely secondary to poor nutrition. I will start the patient on Neutra- Phos. Continue to monitor phosphorus levels. (9) Hyperchloremic metabolic acidosis ICD Code: E87.2 - Acidosis Plan: DC normal saline, I will start on ringers lactate. (10) Rheumatoid arthritis ICD Code: M06.9 - Rheumatoid arthritis, unspecified Plan: Patient presents with pain in bilateral knees and left hip. Patient is on methotrexate at home, however she states she ran out of the medication long time ago. I will continue to hold methotrexate for now and order a bilateral knee x-ray and the left hip x-ray. 09/11 Knee x-ray showed mild also arthritic changes and osteopenia. The left hip shows moderate to severe osteophytic changes. I will consult orthopedic surgery for further recommendations. I will start the patient on calcium and vitamin D. Resume methotrexate, will check rheumatoid factor, ESR, CRP and VALE. PT eval Assessment and Plan GI prophylaxis: On Protonix since patient is on steroids. DVT prophylaxis: SCDs. Discharge Planning Continue to monitor in the medical floor, facial swelling much improved. Pending orthopedic surgery consult. Possible DC in am. Problem Qualifiers (1) Sepsis: Qualified Codes: A41.9 - Sepsis, unspecified organism (2) UTI (urinary tract infection): Qualified Codes: N30.00 - Acute cystitis without hematuria (3) Leukocytosis: Qualified Codes: D72.829 - Elevated white blood cell count, unspecified (4) Uncontrolled diabetes mellitus: (5) Rheumatoid arthritis: Qualified Codes: M06.9 - Rheumatoid arthritis, unspecified Andrea Carreon MD Sep 11, 2017 13:04
[2017-09-11] MEDS: metFORMIN HCL 500 MG TAB PO SCH ×2 (13:06→17:10)
[2017-09-11 13:28] LABS: RHEUMATOID FACTOR TRIGGER LESS THAN 10.0 IU/ML (0.0-14.9)
[2017-09-11] MEDS ORDERED: METHOTREXATE 2.5 MG TAB PO SCH (14:00)
[2017-09-11] MEDS: ENOXAPARIN SODIUM 40 MG/0.4 ML SYRINGE SQ SCH (14:00)
[2017-09-11] MEDS: POTASSIUM CHLOR 20 MEQ PREMIX 100 ML IV SCH ×2 (14:26→15:00)
[2017-09-11] MEDS: CALCIUM/VITAMIN D 250 MG/125 U TAB PO SCH ×2 (15:40→21:12)
[2017-09-11 16:00] VITALS: BP 133/65; PULSE 65; RESP 16; TEMP 95.2; O2SAT 100
[2017-09-11] MEDS: INSULIN ASPART 1,000 UNITS/10 ML VIAL SQ SCH (17:11)
[2017-09-11 20:00] VITALS: BP 130/68; PULSE 64; RESP 17; TEMP 96; O2SAT 100
[2017-09-11] MEDS: predniSONE 20 MG TAB PO SCH (21:12)
[2017-09-11] MEDS: POTASSIUM CHLORIDE 20 MEQ CONTROLLED RELEASE TAB PO SCH (21:12)
[2017-09-12] VITALS: BP 122/61; PULSE 68; RESP 17; TEMP 97.4; O2SAT 100
[2017-09-12] MEDS: LEVOFLOXACIN 750 MG PREMIX INJ 150 ML IV SCH (00:37)
[2017-09-12] MEDS: VANCOMYCIN INJ 1,000 MG in SODIUM CHLOR 0.9% 250 ML INJ 250 ML IV SCH ×3 (00:37→23:35)
[2017-09-12] MEDS: HEPARIN SODIUM - SQ 10,000 UNITS/ML VIAL SQ SCH ×2 (05:37→12:10)
[2017-09-12] MEDS: INSULIN ASPART SUPPLEMENTAL SCALE SQ SCH ×4 (07:28→20:23)
--- NOTE | 2017-09-12 07:45 | MB ---
cc: PADMINI MONTERO MD, TODD DATE OF CONSULTATION: 09/12/2017 REASON FOR CONSULTATION: Bilateral knee and left hip osteoarthritis CONSULTING PHYSICIAN Dr. Michael Scott ARTIE Freeman is a 52-year-old female who initially presented with fevers and chills. She is a type 2 diabetic. She has a history of osteoarthritis. She was found to have a urinary infection as well as possible allergic reaction. She has had chronic left hip pain and right knee pain. The left hip pain is worse than the right knee pain. The patient is known to have rheumatoid arthritis as well osteoarthritis of her joints. She currently states that the pain is at her baseline. She denies any fevers or chills overnight. She is able to stand and bear weight. Hip pain is worse with movement. PAST MEDICAL HISTORY Illnesses: Diabetes, rheumatoid arthritis. SURGERIES None MEDICATIONS Please see EMR for complete list of inpatient medications which include gabapentin, methotrexate, metformin. ALLERGIES PENICILLIN. FAMILY HISTORY: Positive for diabetes in her mother and father. SOCIAL HISTORY: The patient has used marijuana once approximately one week ago. She denies tobacco or drug use. REVIEW OF SYSTEMS The patient denies headache, visual changes, neck pain, chest pain, shortness of breath, abdominal pain, nausea, vomiting, fevers, chills, numbness or tingling of the extremities. She complains of bilateral knee pain and left hip pain. PHYSICAL EXAMINATION The patient is a well-developed, well-nourished 52 year-old female in no acute distress. She is awake and alert. She is alert and oriented x3. Vital signs: Temperature 97.4, pulse 68, respirations 17, blood pressure 122/61, O2 sat 100% on room air. Head: The patient is normocephalic. Pupils are equal. Neck: Soft, nontender. Trachea is midline. Abdomen: Soft, nontender, nondistended. Extremities: Examination of bilateral upper extremities reveals no significant pain with shoulder, elbow or wrist motion. She has intact sensation in all fingers. She has good capillary refill in fingers. Skin is intact. Radial pulses are palpable. Examination of the right leg reveals minimal pain with hip, knee or ankle motion. She does have mild crepitus with knee range of motion. There is no joint effusion. Skin is intact. Ligamentous exam of the knee is negative. Calf and leg compartments are soft. Sensation is intact in the right foot. Examination of left leg reveals mild tenderness over trochanteric bursa. She also has pain with maximum hip flexion, internal rotation. She has no pain with knee or ankle motion. Skin is intact. Dorsalis pedis pulses palpable. Sensation is intact. X-RAYS X-rays of bilateral knees and left hip were reviewed. X-rays reveal mild osteoarthritis of bilateral knees. She has moderate to severe osteoarthritis of the left hip. No acute fractures are noted. IMPRESSION: 1. Bilateral knee mild osteoarthritis. 2. Moderate left hip osteoarthritis. 3. Left hip trochanteric bursitis. PLAN At this point I would recommend the patient follow up with her primary care physician as an outpatient. The patient should have a trial of anti-inflammatory medications for treatment of her osteoarthritis. Her knee arthritis and hip arthritis should be managed as an outpatient at this time. She does not have any acute problems or changes at this time. Ultimately the patient may end up needing a left hip replacement if her symptoms do not improve with conservative treatment. She should try to exhaust all conservative measures prior to considering surgery. All questions were answered. MD LORENZO Ramirez/BERYL /7:10 AM /7:39 AM [id number]
[2017-09-12 08:00] VITALS: BP 124/77; PULSE 59; RESP 16; TEMP 96.7; O2SAT 99
[2017-09-12] MEDS: FOLIC ACID 1 MG TAB PO SCH (08:39)
[2017-09-12] MEDS: DOCUSATE SODIUM 50 MG/SENNA 8.6 MG TAB PO SCH ×2 (08:39→19:59)
[2017-09-12] MEDS: predniSONE 20 MG TAB PO SCH ×2 (08:39→20:17)
[2017-09-12] MEDS: POTASSIUM CHLORIDE 20 MEQ CONTROLLED RELEASE TAB PO SCH ×2 (08:40→20:17)
[2017-09-12] MEDS: metFORMIN HCL 500 MG TAB PO SCH ×2 (08:40→16:57)
[2017-09-12] MEDS: CALCIUM/VITAMIN D 250 MG/125 U TAB PO SCH ×2 (08:40→20:17)
[2017-09-12] MEDS: GABAPENTIN 100 MG CAP PO SCH ×2 (08:40→20:22)
[2017-09-12] MEDS: INSULIN DETEMIR 100 UNITS/ML VIAL SQ SCH ×2 (08:42→20:23)
[2017-09-12] MEDS: INSULIN ASPART 1,000 UNITS/10 ML VIAL SQ SCH ×3 (08:43→16:57)
[2017-09-12] MEDS: SODIUM CHLORIDE 0.9% FLUSH 10 ML FLUSH IV FLUSH SCH ×2 (08:43→20:17)
[2017-09-12 10:05] LABS: BASOPHIL % 0.5 % (0.0-2.0); HEMATOCRIT 39.1 % (35.0-46.0); LYMPH % 27.8 % (9.0-44.0); LYMPHOCYTE # 2.6 TH/MM3 (1.0-4.8); MEAN CELL VOLUME 87.2 FL (80.0-100.0); MEAN CORPUSCULAR HEMOGLOBIN 29.4 PG (27.0-34.0); MEAN CORPUSCULAR HGB CONC 33.7 % (32.0-36.0); MONO % 7.3 % (0.0-8.0); NEUT % 64.4 % (16.0-70.0); PLATELET COUNT 247 TH/MM3 (150-450); RED BLOOD COUNT 4.48 MIL/MM3 (4.00-5.30); RED CELL DISTRIBUTION WIDTH 12.2 % (11.6-17.2); WHITE BLOOD COUNT 9.3 TH/MM3 (4.0-11.0)
[2017-09-12 10:14] LABS: HEMO FLAGS AUTO DIFF
[2017-09-12 10:39] LABS: ALKALINE PHOSPHATASE 86 U/L (45-117); ALT (GPT) 28 U/L (10-53); ANION GAP 9 MEQ/L (5-15); AST (GOT) 33 U/L (15-37); BICARBONATE 21.4 MEQ/L (21.0-32.0); BLOOD UREA NITROGEN 14 MG/DL (7-18); CHLORIDE 104 MEQ/L (98-107); GLOMERULAR FILTRATION RATE 98 ML/MIN (>89); MAGNESIUM 1.2 MG/DL (1.5-2.5); SODIUM (NA) 134 MEQ/L (136-145); TOTAL BILIRUBIN ADULT 0.3 MG/DL (0.2-1.0)
[2017-09-12 10:50] LABS: MYELOCYTES 2 % (0-0); NEUTROPHIL # MANUAL DIFF 7.3 TH/MM3 (1.8-7.7); POLYS (SEG NEUTROPHILS) 77 % (16-70); WBC DIFF SAMPLE 100
[2017-09-12 10:51] LABS: PLATELET ESTIMATE SMEAR NORMAL (NORMAL); PLATELET MORPHOLOGY NORMAL (NORMAL); SCAN/DIFF FINAL DIFF MANUAL
[2017-09-12 12:00] VITALS: BP 110/72; PULSE 67; RESP 14; TEMP 97; O2SAT 99
[2017-09-12] MEDS: LACTATED RINGER'S 1000 ML INJ 1,000 ML IV SCH (12:09)
[2017-09-12] MEDS: ENOXAPARIN SODIUM 40 MG/0.4 ML SYRINGE SQ SCH (12:09)
[2017-09-12] MEDS ORDERED: POTASSIUM PHOSPHATE INJ 15 MMOL in SODIUM CHLORIDE 0.9% INJ 150 ML IV ONE (13:45)
[2017-09-12] MEDS ORDERED: POTASSIUM CHLORIDE 10 MEQ CONTROLLED RELEASE TAB PO ONE (13:45)
--- NOTE | 2017-09-12 14:26 | HHI.IDPN ---
Subjective Subjective Remarks doing well afebrile no disuria no abd pain Antibiotics vanco levaquine Allergies: Coded Allergies: penicillin G (Unverified Allergy, Intermediate, Rash, 09/08/17) Objective . Vital Signs Date Time Temp Pulse Resp B/P (MAP) Pulse Ox O2 Delivery O2 Flow Rate FiO2 09/12/17 12:00 97.0 67 14 110/72 (85) 99 09/12/17 08:00 96.7 59 16 124/77 (93) 99 09/12/17 00:00 97.4 68 17 122/61 (81) 100 09/11/17 20:00 96.0 64 17 130/68 (88) 100 09/11/17 16:00 95.2 65 16 133/65 (87) 100 . Laboratory Tests Test 09/11/17 10:15 09/12/17 09:44 White Blood Count 8.9 TH/MM3 9.3 TH/MM3 Red Blood Count 3.95 MIL/MM3 4.48 MIL/MM3 Hemoglobin 11.7 GM/DL 13.2 GM/DL Hematocrit 34.6 % 39.1 % Mean Corpuscular Volume 87.6 FL 87.2 FL Mean Corpuscular Hemoglobin 29.7 PG 29.4 PG Mean Corpuscular Hemoglobin Concent 33.9 % 33.7 % Red Cell Distribution Width 12.2 % 12.2 % Platelet Count 206 TH/MM3 247 TH/MM3 Mean Platelet Volume 9.8 FL 9.1 FL Neutrophils (%) (Auto) 87.6 % 64.4 % Lymphocytes (%) (Auto) 9.2 % 27.8 % Monocytes (%) (Auto) 3.1 % 7.3 % Eosinophils (%) (Auto) 0.0 % 0.0 % Basophils (%) (Auto) 0.1 % 0.5 % Neutrophils # (Auto) 7.8 TH/MM3 6.0 TH/MM3 Lymphocytes # (Auto) 0.8 TH/MM3 2.6 TH/MM3 Monocytes # (Auto) 0.3 TH/MM3 0.7 TH/MM3 Eosinophils # (Auto) 0.0 TH/MM3 0.0 TH/MM3 Basophils # (Auto) 0.0 TH/MM3 0.0 TH/MM3 CBC Comment DIFF FINAL AUTO DIFF Differential Comment FINAL DIFF MANUAL Erythrocyte Sedimentation Rate 50 mm/hr Differential Total Cells Counted 100 Neutrophils % (Manual) 77 % Lymphocytes % 19 % Monocytes % 2 % Neutrophils # (Manual) 7.3 TH/MM3 Myelocytes 2 % Platelet Estimate NORMAL Platelet Morphology Comment NORMAL Laboratory Tests Test 09/11/17 10:15 09/12/17 09:44 Blood Urea Nitrogen 17 MG/DL 14 MG/DL Creatinine 0.58 MG/DL 0.64 MG/DL Random Glucose 285 MG/DL 144 MG/DL Total Protein 6.6 GM/DL 7.2 GM/DL Albumin 2.3 GM/DL 2.5 GM/DL Calcium Level 7.6 MG/DL 7.9 MG/DL Alkaline Phosphatase 86 U/L 86 U/L Aspartate Amino Transf (AST/SGOT) 11 U/L 33 U/L Alanine Aminotransferase (ALT/SGPT) 15 U/L 28 U/L Total Bilirubin 0.2 MG/DL 0.3 MG/DL Sodium Level 138 MEQ/L 134 MEQ/L Potassium Level 2.7 MEQ/L 3.0 MEQ/L Chloride Level 109 MEQ/L 104 MEQ/L Carbon Dioxide Level 20.4 MEQ/L 21.4 MEQ/L Anion Gap 9 MEQ/L 9 MEQ/L Estimat Glomerular Filtration Rate 110 ML/MIN 98 ML/MIN C-Reactive Protein 4.64 MG/DL Phosphorus Level 1.9 MG/DL Magnesium Level 1.2 MG/DL Imaging Last Impressions Knee X-Ray 09/10/17 0000 Signed Impressions: Service Date/Time: Sunday, September 10, 2017 14:38 - CONCLUSION: 1. Mild osteoarthritic change. 2. Osteopenia. Rian Pisano MD Hip and Pelvis X-Ray 09/10/17 0000 Signed Impressions: Service Date/Time: Sunday, September 10, 2017 14:33 - CONCLUSION: 1. Moderate to severe osteoarthritic change in the left hip. 2. Milder degenerative changes in the right hip. Rian Pisano MD Chest X-Ray 09/08/17 0912 Signed Impressions: Service Date/Time: Friday, September 08, 2017 09:41 - CONCLUSION: No acute disease. Aleksander Monteiro MD FACR Physical Exam CONSTITUTIONAL/GENERAL: This is an obese patient, in no apparent distress. TUBES/LINES/DRAINS: SKIN: No jaundice, rashes, or lesions. HEAD:Face with near complete resolution of edema and erythema involving periorbital area, nose, malar areas with some peeling EYES: Pupils equal and round and reactive. Extraocular motions intact. No scleral icterus. ENT: Hearing grossly normal. Nose without bleeding or purulent drainage. Oral mucosae without visible erythema, exudates, masses, or lesions. CARDIOVASCULAR: Regular rate and rhythm without murmurs, gallops, or rubs. No JVD. Peripheral pulses symmetric. RESPIRATORY/CHEST: Symmetric, unlabored respirations. Clear to auscultation. GASTROINTESTINAL: Abdomen soft, non-tender, nondistended. No hepato-splenomegaly , or palpable masses. No guarding. Bowel sounds present. GENITOURINARY: Without palpable bladder distension. No suprapubic tendernedd MUSCULOSKELETAL: Extremities without clubbing, cyanosis, or edema. No joint tenderness or effusion noted. No calf tenderness. No mottling or clubbing. NEUROLOGICAL: Awake and alert. Motor and sensory grossly within normal limits. Follows commands. Clear speech. Moves all extremities. PSYCHIATRIC: calm and cooperative Assessment & Plan Remarks Facial cellulitis vs allergic reaction to MJ - nearly resolved UTI E.coli cont vanco IV will switch to po doxycyline if cont to improve to complete 10 days couese for cellulitis change levaquine ot po; complete 7 days of levaquine when OK to dc cont with levaquine PO and doxycyline PO Elizabeth Lomeli MD Sep 12, 2017 14:25
--- NOTE | 2017-09-12 15:14 | HHI.PR ---
Subjective Remarks Facial swelling almost completely resolved. Denies cp/sob afebrile Objective Vitals Vital Signs Date Time Temp Pulse Resp B/P (MAP) Pulse Ox O2 Delivery O2 Flow Rate FiO2 09/12/17 12:00 97.0 67 14 110/72 (85) 99 09/12/17 08:00 96.7 59 16 124/77 (93) 99 09/12/17 00:00 97.4 68 17 122/61 (81) 100 09/11/17 20:00 96.0 64 17 130/68 (88) 100 09/11/17 16:00 95.2 65 16 133/65 (87) 100 I/O 09/11/17 09/11/17 09/11/17 09/12/17 09/12/17 09/12/17 07:00 15:00 23:00 07:00 15:00 23:00 Intake Total 640 ml 250 ml 1517 ml 892 ml Balance 640 ml 250 ml 1517 ml 892 ml Intake Oral 240 ml 1200 ml 240 ml IV Total 400 ml 250 ml 317 ml 652 ml # Voids 1 4 3 # Bowel Movements 1 Result Diagram: 09/12/17 0944 09/12/17 0944 Imaging Last Impressions Knee X-Ray 09/10/17 0000 Signed Impressions: Service Date/Time: Sunday, September 10, 2017 14:38 - CONCLUSION: 1. Mild osteoarthritic change. 2. Osteopenia. Rian Pisano MD Hip and Pelvis X-Ray 09/10/17 0000 Signed Impressions: Service Date/Time: Sunday, September 10, 2017 14:33 - CONCLUSION: 1. Moderate to severe osteoarthritic change in the left hip. 2. Milder degenerative changes in the right hip. Rian Pisano MD Chest X-Ray 09/08/17 0912 Signed Impressions: Service Date/Time: Friday, September 08, 2017 09:41 - CONCLUSION: No acute disease. Aleksander Monteiro MD FACR Objective Remarks AAOx3 Erythema and swelling of face resolved. Lungs clear S1S2 RRR abdomen soft, nt, nd Bl knee pain on palpation, Left hip with decreased ROM and tender to palpation. Medications and IVs Current Medications Medications (Trade) Dose Ordered Sig/Lionel Route Start Time Stop Time Status Last Admin (NS Flush) 2 ml UNSCH PRN IV FLUSH 09/08/17 20:15 (NS Flush) 2 ml BID IV FLUSH 09/08/17 21:00 09/11/17 08:25 (Tylenol) 650 mg Q4H PRN PO 09/08/17 20:15 (Zofran Inj) 4 mg Q6H PRN IVP 09/08/17 20:15 (Heparin Inj) 5,000 units Q8H SQ 09/08/17 22:00 09/12/17 12:10 (Narcan Inj) 0.4 mg UNSCH PRN IV PUSH 09/08/17 20:15 (Leeann-Colace) 1 tab BID PO 09/08/17 21:00 09/12/17 08:39 (Milk Of Magnesia Liq) 30 ml Q12H PRN PO 09/08/17 20:15 (Senokot) 17.2 mg Q12H PRN PO 09/08/17 20:15 (Dulcolax Supp) 10 mg DAILY PRN RECTAL 09/08/17 20:15 (Lactulose Liq) 30 ml DAILY PRN PO 09/08/17 20:15 (Benadryl Inj) 25 mg Q6H PRN IM 09/08/17 20:15 (D50w (Vial) Inj) 50 ml UNSCH PRN IV PUSH 09/08/17 20:15 (Glucagon Inj) 1 mg UNSCH PRN OTHER 09/08/17 20:15 (NovoLOG SUPPLEMENTAL SCALE) 1 ACHS SLIDING SCALE SQ 09/08/17 21:00 09/11/17 17:12 (Folate) 1 mg DAILY PO 09/09/17 09:00 09/12/17 08:39 (Neurontin) 100 mg BID PO 09/08/17 21:00 09/12/17 08:40 Vancomycin HCl 1000 mg/Sodium Chloride 250 ml @ 250 mls/hr Q12H IV 09/10/17 01:00 09/12/17 12:09 (Deltasone) 20 mg BID PO 09/11/17 21:00 09/12/17 08:39 Lactated Ringer's 1,000 ml @ 84 mls/hr [id number] IV 09/11/17 12:45 09/12/17 12:09 (Glucophage) 500 mg BIDPC PO 09/11/17 12:45 09/12/17 08:40 (Rheumatrex) 20 mg Q7D PO 09/11/17 14:00 09/11/17 13:02 (Levemir Inj) 15 units Q12HR SQ 09/11/17 21:00 09/12/17 08:42 (NovoLOG INJ) 7 units TIDAC SQ 09/11/17 17:00 09/12/17 12:09 (Lovenox Inj) 40 mg Q24H SQ 09/11/17 14:00 (Oscal-D 250-125) 250 mg Q12HR PO 09/11/17 14:00 09/12/17 08:40 (KCl) 20 meq Q12HR PO 09/11/17 21:00 09/12/17 08:40 Potassium Phosphate 15 mmol/ Sodium Chloride 155 ml @ 38.75 mls/ hr ONCE ONCE IV 09/12/17 13:45 09/12/17 17:44 Magnesium Sulfate/ Dextrose 100 ml @ 100 mls/hr Q1H IV 09/12/17 14:00 09/12/17 15:59 (Levaquin) 500 mg DAILY PO 09/13/17 09:00 09/18/17 08:59 UNV A/P Problem List: (1) Sepsis ICD Code: A41.9 - Sepsis, unspecified organism Status: Acute Plan: Present on admission, the patient presented with leukocytosis, heart rate of 124, lactic acid 2.5 and a urinary tract infection. The patient was admitted to the medical floor, started on IV fluids and IV Rocephin. Sepsis possibly secondary to UTI, but patient also has suspected cellulitis in the face. Blood cultures obtained and negative to date IV Rocephin was discontinued and the patient was placed on IV Levaquin and IV vancomycin. 09/11. Sepsis clinically resolved. ID consulted appreciate recommendations. DC Solumedrol and start prednisone taper. (2) UTI (urinary tract infection) ICD Code: N39.0 - Urinary tract infection, site not specified Status: Acute Plan: Urine culture is growing Escherichia coli - continue IV vancomycin and IV Levaquin. 09/12 IV antibiotics discontinued. will switch to po doxycyline if cont to improve to complete 10 days couese for cellulitis. As per ID when OK to dc cont with levaquine PO and doxycyline PO. (3) Leukocytosis ICD Code: D72.829 - Elevated white blood cell count, unspecified Status: Acute Plan: Likely secondary to urinary tract infection and facial cellulitis. Trending down slowly. Continue to monitor CBC with differential 09/11 Resolved (4) Facial cellulitis ICD Code: L03.211 - Cellulitis of face Status: Acute Plan: Patient was started on Solu-Medrol 40 mg IV every 6 hours. 09/11 DC solumedrol and start oral prednisone. 09/12 taper prednisone dose to 20 mg po daily (5) Hyponatremia ICD Code: E87.1 - Hypo-osmolality and hyponatremia Status: Resolved Plan: Likely due to hypovolemic hyponatremia secondary to dehydration. 09/11 Resolved after IV fluid administration (6) Hypokalemia ICD Code: E87.6 - Hypokalemia Status: Acute Plan: 09/12 K Continues to be low at 3.0, Patient did not tolerate IV KCL, replace with 60 meq of oral potassium. monitor BMP (7) Uncontrolled diabetes mellitus ICD Code: E11.65 - Type 2 diabetes mellitus with hyperglycemia Status: Resolved Plan: This out with blood sugars in the 300s. I will place on basal bolus therapy with insulin Levemir and insulin NovoLog. Continue SSI with insulin NovoLog. Blood sugars likely uncontrolled due to steroids, check hemoglobin a1c 09/12 Blood sugars much improved. Continue management with basal bolus therapy with insulin Levemir insulin NovoLog. Continue SSI with insulin NovoLog. (8) Hypophosphatemia ICD Code: E83.39 - Other disorders of phosphorus metabolism Status: Acute Plan: Likely secondary to poor nutrition. I will start the patient on Neutra- Phos. Continue to monitor phosphorus levels. 09/12 phosphorus still low. I will replace with IV potassium phosphate. (9) Hyperchloremic metabolic acidosis ICD Code: E87.2 - Acidosis Status: Resolved Plan: DC normal saline, I will start on ringers lactate. 09/12 resolved after IV Ringers lactate infusion. DC IV fluids. (10) Rheumatoid arthritis ICD Code: M06.9 - Rheumatoid arthritis, unspecified Plan: Patient presents with pain in bilateral knees and left hip. Patient is on methotrexate at home, however she states she ran out of the medication long time ago. I will continue to hold methotrexate for now and order a bilateral knee x-ray and the left hip x-ray. 09/11 Knee x-ray showed mild also arthritic changes and osteopenia. The left hip shows moderate to severe osteophytic changes. I will consult orthopedic surgery for further recommendations. I will start the patient on calcium and vitamin D. Resume methotrexate, will check rheumatoid factor, ESR, CRP and VALE. PT eval 09/12 appreciate orthopedic surgery recommendations. Recommended conservative management and follow-up with primary care physician. The patient should be given a trial of NSAIDs. Rheumatoid factor negative, ANAs pending pending. CRP and sedimentation rate elevated. Assessment and Plan GI prophylaxis: On Protonix since patient is on steroids. DVT prophylaxis: SCDs. Discharge Planning Discharge after electrolyte replacement and electrolyte abnormalities resolution. Problem Qualifiers (1) Sepsis: Qualified Codes: A41.9 - Sepsis, unspecified organism (2) UTI (urinary tract infection): Qualified Codes: N30.00 - Acute cystitis without hematuria (3) Leukocytosis: Qualified Codes: D72.829 - Elevated white blood cell count, unspecified (4) Uncontrolled diabetes mellitus: (5) Rheumatoid arthritis: Qualified Codes: M06.9 - Rheumatoid arthritis, unspecified Andrea Carreon MD Sep 12, 2017 15:14
[2017-09-12 16:00] VITALS: BP 126/73; PULSE 59; RESP 16; TEMP 97.2; O2SAT 99
[2017-09-12 20:00] VITALS: BP 144/81; PULSE 66; RESP 17; TEMP 96.8; O2SAT 99
[2017-09-12] MEDS: MAGNESIUM SULFATE 1 GM PREMIX 100 ML IV SCH ×2 (20:18→23:35)
[2017-09-13] VITALS: BP 128/75; PULSE 58; RESP 17; TEMP 96.5; O2SAT 98
[2017-09-13] MEDS: LACTATED RINGER'S 1000 ML INJ 1,000 ML IV SCH ×2 (05:47→12:25)
[2017-09-13 07:16] LABS: BICARBONATE 23.1 MEQ/L (21.0-32.0); POTASSIUM 3.5 MEQ/L (3.5-5.1)
[2017-09-13 08:00] VITALS: BP 102/74; PULSE 71; RESP 17; TEMP 95.5; O2SAT 99
[2017-09-13] MEDS: INSULIN ASPART 1,000 UNITS/10 ML VIAL SQ SCH ×3 (08:00→17:00)
[2017-09-13] MEDS: INSULIN ASPART SUPPLEMENTAL SCALE SQ SCH ×3 (08:00→17:00)
[2017-09-13] MEDS: SODIUM CHLORIDE 0.9% FLUSH 10 ML FLUSH IV FLUSH SCH (09:00)
[2017-09-13] MEDS ORDERED: LEVOFLOXACIN 500 MG TAB PO SCH (09:00)
[2017-09-13] MEDS ORDERED: GLUCKIT15 (09:12)
[2017-09-13] MEDS ORDERED: DOXY100C PO (09:12)
[2017-09-13] MEDS ORDERED: NOVORP2 SQ (09:12)
[2017-09-13] MEDS ORDERED: LEVA500T33 PO (09:12)
[2017-09-13] MEDS ORDERED: BIOM30MI (09:12)
[2017-09-13] MEDS ORDERED: GLUCTES12 (09:12)
[2017-09-13] MEDS ORDERED: LANCETS1 MI1 (09:12)
[2017-09-13] MEDS ORDERED: INSU1MIS15 (09:12)
--- NOTE | 2017-09-13 09:12 | HHI.DCPOC ---
Discharge Care Plan Diagnosis: (1) Uncontrolled diabetes mellitus (2) Hyperchloremic metabolic acidosis (3) Hypophosphatemia (4) Facial cellulitis (5) Leukocytosis (6) Hyponatremia (7) Hypokalemia (8) Rheumatoid arthritis (9) UTI (urinary tract infection) (10) Sepsis Goals to Promote Your Health * To prevent worsening of your condition and complications * To maintain your health at the optimal level Directions to Meet Your Goals Take your medications as prescribed Follow your dietary instruction Follow activity as directed Keep your appointments as scheduled Take your immunizations and boosters as scheduled If your symptoms worsen call your PCP, if no PCP go to Urgent Care Center or Emergency Room Smoking is Dangerous to Your Health. Avoid second hand smoke Call the 24-hour hour crisis hotline for domestic abuse at Andrea Carreon MD Sep 13, 2017 09:12
[2017-09-13] MEDS: CALCIUM/VITAMIN D 250 MG/125 U TAB PO SCH (09:22)
[2017-09-13] MEDS: FOLIC ACID 1 MG TAB PO SCH (09:22)
[2017-09-13] MEDS: POTASSIUM CHLORIDE 20 MEQ CONTROLLED RELEASE TAB PO SCH (09:22)
[2017-09-13] MEDS: metFORMIN HCL 500 MG TAB PO SCH ×2 (09:22→17:13)
[2017-09-13] MEDS: DOCUSATE SODIUM 50 MG/SENNA 8.6 MG TAB PO SCH (09:22)
[2017-09-13] MEDS: GABAPENTIN 100 MG CAP PO SCH (09:22)
[2017-09-13] MEDS: predniSONE 20 MG TAB PO SCH (09:23)
[2017-09-13] MEDS: INSULIN DETEMIR 100 UNITS/ML VIAL SQ SCH (09:24)
[2017-09-13] MEDS ORDERED: METF1000 PO (10:44)
[2017-09-13] MEDS ORDERED: GABA100C4 PO (10:44)
[2017-09-13] MEDS ORDERED: METH2.5T PO (10:44)
[2017-09-13] MEDS ORDERED: NAPR250T4 PO (10:55)
[2017-09-13 12:00] VITALS: BP 101/63; PULSE 78; RESP 16; TEMP 96.7; O2SAT 100
[2017-09-13] MEDS: ENOXAPARIN SODIUM 40 MG/0.4 ML SYRINGE SQ SCH (12:23)
[2017-09-13] MEDS: VANCOMYCIN INJ 1,000 MG in SODIUM CHLOR 0.9% 250 ML INJ 250 ML IV SCH (12:24)
--- NOTE | 2017-09-13 13:52 | HHI.DS ---
Discharge Summary Admission Date Sep 08, 2017 at 20:09 Discharge Date: Sep 13, 2017 Admitting Diagnosis sepsis, UTI (1) Sepsis ICD Code: A41.9 - Sepsis, unspecified organism Diagnosis: Principal Status: Resolved (2) UTI (urinary tract infection) ICD Code: N39.0 - Urinary tract infection, site not specified Diagnosis: Principal Status: Resolved (3) Leukocytosis ICD Code: D72.829 - Elevated white blood cell count, unspecified Diagnosis: Principal Status: Resolved (4) Facial cellulitis ICD Code: L03.211 - Cellulitis of face Diagnosis: Principal Status: Resolved (5) Hyponatremia ICD Code: E87.1 - Hypo-osmolality and hyponatremia Diagnosis: Principal Status: Resolved (6) Hypokalemia ICD Code: E87.6 - Hypokalemia Diagnosis: Principal Status: Resolved (7) Uncontrolled diabetes mellitus ICD Code: E11.65 - Type 2 diabetes mellitus with hyperglycemia Diagnosis: Principal Status: Resolved (8) Hypophosphatemia ICD Code: E83.39 - Other disorders of phosphorus metabolism Diagnosis: Principal Status: Resolved (9) Hyperchloremic metabolic acidosis ICD Code: E87.2 - Acidosis Status: Resolved (10) Rheumatoid arthritis ICD Code: M06.9 - Rheumatoid arthritis, unspecified Status: Chronic Procedures none Brief History - From Admission 52-year-old female with a past medical history of type 2 diabetes mellitus and rheumatoid arthritis presents with a 2 day history of a red, swollen warm face. The patient reports that 4 days ago she drank a small amount of marijuana tea and then 2 days later awoke to find her face swollen, red and hot. This was the patient's first time ingesting marijuana and any form. The patient was tachycardic on her arrival to 124. Had a significant leukocytosis to 27.8 with a left shift. UA significant for large leukocyte esterase, 24 WBCs and many urine bacteria. The patient denies any dysuria, hematuria. She denies systemic symptoms such as fever/chills. Despite treatment in the emergency department with hydroxyzine and Benadryl, her face remains red and swollen. She denies any throat swelling or shortness of breath. CBC/BMP: 09/12/17 0944 09/13/17 0556 Significant Findings Laboratory Tests Test 09/11/17 10:15 09/11/17 14:36 09/12/17 09:44 09/13/17 05:56 Red Blood Count 3.95 MIL/MM3 (4.00-5.30) Hematocrit 34.6 % (35.0-46.0) Neutrophils (%) (Auto) 87.6 % (16.0-70.0) Neutrophils # (Auto) 7.8 TH/MM3 (1.8-7.7) Lymphocytes # (Auto) 0.8 TH/MM3 (1.0-4.8) Erythrocyte Sedimentation Rate 50 mm/hr (0-30) Random Glucose 285 MG/DL (74-106) 144 MG/DL (74-106) Albumin 2.3 GM/DL (3.4-5.0) 2.5 GM/DL (3.4-5.0) Calcium Level 7.6 MG/DL (8.5-10.1) 7.9 MG/DL (8.5-10.1) 7.7 MG/DL (8.5-10.1) Aspartate Amino Transf (AST/SGOT) 11 U/L (15-37) Potassium Level 2.7 MEQ/L (3.5-5.1) 3.0 MEQ/L (3.5-5.1) Chloride Level 109 MEQ/L (98-107) 109 MEQ/L (98-107) Carbon Dioxide Level 20.4 MEQ/L (21.0-32.0) C-Reactive Protein 4.64 MG/DL (0.00-0.30) Neutrophils % (Manual) 77 % (16-70) Myelocytes 2 % (0-0) Phosphorus Level 1.9 MG/DL (2.5-4.9) Magnesium Level 1.2 MG/DL (1.5-2.5) Sodium Level 134 MEQ/L (136-145) Creatinine 0.41 MG/DL (0.50-1.00) Imaging Last Impressions Knee X-Ray 09/10/17 0000 Signed Impressions: Service Date/Time: Sunday, September 10, 2017 14:38 - CONCLUSION: 1. Mild osteoarthritic change. 2. Osteopenia. Rian Pisano MD Hip and Pelvis X-Ray 09/10/17 0000 Signed Impressions: Service Date/Time: Sunday, September 10, 2017 14:33 - CONCLUSION: 1. Moderate to severe osteoarthritic change in the left hip. 2. Milder degenerative changes in the right hip. Rian Pisano MD Chest X-Ray 09/08/17 0912 Signed Impressions: Service Date/Time: Friday, September 08, 2017 09:41 - CONCLUSION: No acute disease. Aleksander Monteiro MD FACR PE at Discharge AAOx3 Erythema and swelling of face resolved. Lungs clear S1S2 RRR abdomen soft, nt, nd Bl knee pain on palpation, Left hip with decreased ROM and tender to palpation. Pt update on day of discharge Patient denies fevers or chills. Facial swelling resolved. RN reports primary special educator recommended not sending the patient home on insulin as the patient could not see and understand instructions well. Will Dc on metformin but will increase dose to 100 mg po BID. Diet education will be provided before DC as per primary special educator recommendations. Pt Condition on Discharge: Stable Discharge Disposition: Discharge Home Discharge Time: > 30 minutes Discharge Instructions DIET: Follow Instructions for: Diabetic Diet Activities you can perform: Regular-No Restrictions Follow up Referrals: PCP Follow-up - 1 Week New Medications: Blood Glucose Monitoring W/Device (Glucocom Blood Glucose Mo W/Device) 1 Kit Kit KIT .ROUTE DIRECTED for Blood Sugar Management, #1 Doxycycline Hyclate (Doxycycline Hyclate) 100 Mg Cap 100 MG PO BID for Infection, #20 CAP 0 Refills Glucocom Test Strips (Glucocom Test Strips) 1 Iva Iva EA .ROUTE DIRECTED for Blood Sugar Management, #1 Lancets (Lancets) 1 Mis Mis EA .ROUTE DIRECTED for Blood Sugar Management, #1 0 Refills Metformin (Metformin) 1,000 Mg Tab 1000 MG PO BIDPC for Blood Sugar Management, #60 TAB 0 Refills Naproxen (Naproxen) 250 Mg Tab 250 MG PO BID PRN for PAIN SCALE 1 TO 10, #60 TAB 0 Refills Levofloxacin (Levaquin) 500 Mg Tablet 500 MG PO DAILY for Infection, #7 TAB-CAP Continued Medications: Folic Acid (Folic Acid) 0.4 Mg Tab 400 MCG PO DAILY for Nutritional Supplement, TAB 0 Refills Gabapentin (Gabapentin) 100 Mg Cap 100 MG PO BID for Pain Management, #60 CAP 0 Refills (This prescription has been renewed) Methotrexate (Methotrexate) 2.5 Mg Tab 20 MG PO Q7D for Inflammation, #32 TAB 0 Refills (This prescription has been renewed) Discontinued Medications: Metformin (Metformin) 500 Mg Tab 500 MG PO BIDPC for Blood Sugar Management, #60 TAB 0 Refills With meals Naproxen (Naprosyn) 500 Mg Tab 250 MG PO BID for Inflammation for 5 Days, #30 TAB 0 Refills Take 500mg (2 tablets) twice daily for 5 days followed by 250mg (1 tablet) twice daily for 5 days. Take with food. Andrea Carreon MD Sep 13, 2017 13:52
[2017-09-13 16:00] VITALS: BP 109/65; PULSE 83; RESP 16; TEMP 96.8; O2SAT 99
[2017-09-13 17:09] LABS: HEMOGLOBIN A1b 1.1 %; HEMOGLOBIN Ao 79.8 %; HEMOGLOBIN F 1.4 %; HEMOGLOBIN LA1C 1.7 %; HEMOGLOBIN P3 3.9 %
== END 2017-09-13 18:19 | disposition home or self-care (01) | DRG 872 ==
LOC: NEPC 08:46 → NEDA 18:51 → INTOOBSV 20:09 → OBSVTOIN 20:09 → NEDA 21:16 → N07A 21:16
PROVIDERS: ADMIT Hospitalist; ATTEND Hospitalist
DX: A41.9 Sepsis, unspecified organism (principal); E87.2 Acidosis; I95.9 Hypotension, unspecified; E11.65 Type 2 diabetes mellitus with hyperglycemia; Z79.84 Long term (current) use of oral hypoglycemic drugs; E87.1 Hypo-osmolality and hyponatremia; E87.8 Other disorders of electrolyte and fluid balance, not elsewhere classified; N39.0 Urinary tract infection, site not specified; B96.20 Unspecified Escherichia coli [E. coli] as the cause of diseases classified elsewhere; L03.211 Cellulitis of face; F12.90 Cannabis use, unspecified, uncomplicated; M06.9 Rheumatoid arthritis, unspecified; E83.39 Other disorders of phosphorus metabolism; E87.6 Hypokalemia; E66.01 Morbid (severe) obesity due to excess calories; Z68.39 Body mass index [BMI] 39.0-39.9, adult; M16.12 Unilateral primary osteoarthritis, left hip; M70.62 Trochanteric bursitis, left hip; E86.0 Dehydration; M85.80 Other specified disorders of bone density and structure, unspecified site
CPT/HCPCS: 71010; 73501; 73560; 80048; 80053; 81001; 82948; 83036; 83605; 83735; 84100; 85007; 85025; 85027; 85652; 86038; 86140; 86430; 87040; 87077; 87086; 87186; 96361; 96374; 96375; G8987-GP; G8988-GP; J0696; J1200; J1644; J1650; J1815; J1956; J2405; J2920; J2930; J3370; J3475; J3480; J7030; J7040; J7050; J7120; J7512; J8610

== ENCOUNTER 2017-10-11 13:47 | Emergency (ER) | payer MEDICAID ==
[~2017-10-11 13:47] MED LIST changes: +DOXY100C PO; +FOLI400T PO; +GABA100C4 PO; +GLUCKIT15; +GLUCTES12; +LANCETS1 MI1; +LEVA500T33 PO; +METF1000 PO; -METF500T PO; +METH2.5T PO; +NAPR250T4 PO; -NAPR500 PO
[2017-10-11 13:49] VITALS: BP 122/56; PULSE 96; RESP 14; TEMP 98.4; O2SAT 99
[2017-10-11 15:12] LABS: BACTERIA, URINE MANY /hpf; BILIRUBIN, URINE NEG (NEG); BLOOD, URINE SMALL (NEG); GLUCOSE,URINE NEG (NEG); KETONE, URINE NEG (NEG); MUCUS URINE MANY /lpf (OCC); NITRITE,URINE NEG (NEG); PH, URINE 6.5 (5.0-8.5); SQUAMOUS EPITHELIAL CELL URINE 1 /hpf (0-5); URINE COLOR YELLOW (YELLW/STRAW); URINE LEUKOCYTE ESTERASE LARGE (NEG)
[2017-10-11] MEDS ORDERED: BACT800T5 PO (15:52)
--- NOTE | 2017-10-11 15:52 | PD ---
HPI Chief Complaint: Complaint Time Seen by Provider: 15:20 Travel History International Travel<30 days: No Contact w/Intl Traveler<30days: No Traveled to known affect area: No History of Present Illness HPI 52-year-old female here with dysuria, urgency, frequency for several days. She denies fever or chills. Similar symptoms in the past with UTIs. She also reports she fell approximately a month ago injuring her lower lip which has a small scab and has slowly healed. She would like that area checked as well. She denies back pain, abdominal pain, vaginal discharge or irritation. Severity is moderate. No alleviating factors. PFSH Past Medical History Arthritis: Yes Asthma: Yes Depression: Yes Cancer: No Cardiovascular Problems: No Chemotherapy: No Diabetes: Yes Diminished Hearing: No Genitourinary: No Musculoskeletal: Yes (ARTHRITIS) Neurologic: Yes (NEUROPATHY) Psychiatric: Yes Reproductive: No Respiratory: Yes (SOB) Radiation Therapy: No Thyroid Disease: No Menopausal: Yes Social History Alcohol Use: No Tobacco Use: No Substance Use: Yes Allergies-Medications (Allergen,Severity, Reaction): Coded Allergies: penicillin G (Unverified Allergy, Intermediate, Rash, 09/08/17) Reported Meds & Prescriptions Reported Meds & Active Scripts Active Bactrim DS (Sulfamethoxazole-Trimethoprim) 800-160 Mg Tab 1 Tab PO BID Naproxen 250 Mg Tab 250 Mg PO BID PRN Metformin (Metformin HCl) 1,000 Mg Tab 1,000 Mg PO BIDPC Gabapentin 100 Mg Cap 100 Mg PO BID Methotrexate 2.5 Mg Tab 20 Mg PO Q7D Glucocom Test Strips (Blood Glucose Test Strips) 1 Iva Iva Ea .ROUTE DIRECTED Lancets 1 Mis Mis Ea .ROUTE DIRECTED Glucocom Blood Glucose Mo W/Device (Device) 1 Kit Kit Kit .ROUTE DIRECTED Doxycycline Hyclate 100 Mg Cap 100 Mg PO BID Levaquin (Levofloxacin) 500 Mg Tablet 500 Mg PO DAILY Reported Folic Acid 0.4 Mg Tab 400 Mcg PO DAILY Review of Systems Except as stated in HPI: all other systems reviewed are Neg General / Constitutional: No: Fever Gastrointestinal: No: Abdominal Pain Genitourinary: Positive: Urgency, Frequency, Dysuria Physical Exam Narrative GENERAL: Alert well-appearing female. SKIN: Warm and dry. 1.5 CM abrasion/scab to her right lower lip. No drainage or evidence of infection. HEAD: Normocephalic. Atraumatic EYES: Pupils are equal and round. No injection or drainage. NECK: Supple, trachea midline. No cervical midline tenderness CARDIOVASCULAR: Regular rate and rhythm RESPIRATORY: Breath sounds equal bilaterally. No accessory muscle use. GASTROINTESTINAL: Abdomen soft, non-tender, nondistended. BACK: Nontender without obvious deformity. No CVA tenderness. Data Data Last Documented VS Vital Signs Date Time Temp Pulse Resp B/P (MAP) Pulse Ox O2 Delivery O2 Flow Rate FiO2 10/11/17 13:49 98.4 96 14 122/56 (78) 99 Orders Orders Urinalysis - C+S If Indicated (10/11/17 13:59) Urine Culture (10/11/17 14:15) Labs Laboratory Tests Test 10/11/17 14:15 Urine Color YELLOW Urine Turbidity HAZY Urine pH 6.5 Urine Specific [place] 1.023 Urine Protein 30 mg/dL Urine Glucose (UA) NEG mg/dL Urine Ketones NEG mg/dL Urine Occult Blood SMALL Urine Nitrite NEG Urine Bilirubin NEG Urine Urobilinogen 2.0 MG/DL Urine Leukocyte Esterase LARGE Urine RBC 16 /hpf Urine WBC 75 /hpf Urine Squamous Epithelial Cells 1 /hpf Urine Bacteria MANY /hpf Urine Mucus MANY /lpf Microscopic Urinalysis Comment CULTURE INDICATED MDM Medical Decision Making Medical Screen Exam Complete: Yes Emergency Medical Condition: Yes Interpretation(s) UA: Large leukocytes, 16 RBCs, 75 WBCs, many bacteria Differential Diagnosis UTI, pyelonephritis, nephrolithiasis, vaginitis Narrative Course 52-year-old female here with UTI like symptoms for the last several days. She is well-appearing. Her vital signs are stable. She is afebrile. UA suggest infection. She will be put on Bactrim and instructed to follow-up with her primary doctor. Diagnosis Primary Impression: UTI (urinary tract infection) Qualified Codes: N30.01 - Acute cystitis with hematuria Referrals: [facility] Scripts Sulfamethoxazole-Trimethoprim (Bactrim DS) 800-160 Mg Tab 1 TAB PO BID for Infection, #14 TAB 0 Refills Prov: Heidy Bai 10/11/17 Disposition: 01 DISCHARGE HOME Condition: Stable Heidy Bai Oct 11, 2017 15:52
== END 2017-10-11 16:19 | disposition home or self-care (01) ==
LOC: NEPK 13:47
DX: N30.01 Acute cystitis with hematuria (principal); B96.89 Other specified bacterial agents as the cause of diseases classified elsewhere; E11.9 Type 2 diabetes mellitus without complications; Z79.84 Long term (current) use of oral hypoglycemic drugs
CPT/HCPCS: 81001; 87086; 99283

== ENCOUNTER 2017-10-16 11:31 | Inpatient (IN) | payer SELFPAY ==
[2017-10-16] VITALS (8 sets, daily range): BP systolic 95–130; BP diastolic 58–70; PULSE 69–113; RESP 16–19; TEMP 95.6–98.2; O2SAT 92–100
[~2017-10-16 11:31] MED LIST changes: +BACT800T5 PO
--- NOTE | 2017-10-16 12:29 | PD ---
HPI Chief Complaint: Medical Clearance Time Seen by Provider: 12:08 Travel History International Travel<30 days: No Contact w/Intl Traveler<30days: No Traveled to known affect area: No History of Present Illness HPI 52-year-old female with a history of uncontrolled DM and Rheumatoid arthritis presents to the emergency department multiple medical complaints including sores on her mouth and genital region for 2 weeks and unresolved UTI symptoms. States that she has dysuria without hematuria. Patient states that she has also had 1 episode of nonbloody vomitus. Patient says that she has developed bruises on bilateral thighs over the last 2 weeks but denies trauma. Patient says that she was here approximately one week ago and was treated for urinary tract infection but she has not improved. Patient denies fever or chills. Denies chest pain or shortness of breath. Denies abdominal pain. Pt states medication compliance. PFSH Past Medical History Arthritis: Yes Asthma: Yes Depression: Yes Cancer: No Cardiovascular Problems: No Chemotherapy: No Diabetes: Yes Patient Takes Glucophage: Yes Diminished Hearing: No Gastrointestinal Disorders: No Genitourinary: No Musculoskeletal: Yes (ARTHRITIS) Neurologic: Yes (NEUROPATHY) Psychiatric: Yes Reproductive: No Respiratory: Yes (SOB) Radiation Therapy: No Thyroid Disease: No Influenza Vaccination: Yes ?: Not Menopausal: Yes Past Surgical History Other Surgery: No Social History Alcohol Use: No Tobacco Use: No Substance Use: Yes Allergies-Medications (Allergen,Severity, Reaction): Coded Allergies: penicillin G (Unverified Allergy, Intermediate, Rash, 10/16/17) vancomycin (Verified Allergy, Intermediate, Hives, 10/16/17) Reported Meds & Prescriptions Reported Meds & Active Scripts Active Naproxen 250 Mg Tab 250 Mg PO BID PRN Metformin (Metformin HCl) 1,000 Mg Tab 1,000 Mg PO BIDPC Gabapentin 100 Mg Cap 100 Mg PO BID Methotrexate 2.5 Mg Tab 20 Mg PO Q7D Glucocom Test Strips (Blood Glucose Test Strips) 1 Iva Iva Ea .ROUTE DIRECTED Glucocom Blood Glucose Mo W/Device (Device) 1 Kit Kit Kit .ROUTE DIRECTED Review of Systems Except as stated in HPI: all other systems reviewed are Neg Physical Exam Narrative GENERAL: Well developed well nourished in no apparent distress SKIN: Focused skin assessment warm/dry. Genital area- multiple ulcerations with serosanguineous fluid surrounded by erythema. Nonfluctuant. The lesions extend into the perineum. Tender to palpation. Bilateral lower extremities-upper thighs numerous round areas of ecchymosis. Right lower extremity-scattered petechiae with obvious excoriations HEAD: Atraumatic. Normocephalic. EYES: Pupils equal and round. No scleral icterus. No injection or drainage. ENT: No nasal bleeding or discharge. Mucous membranes pink and moist. NECK: Trachea midline. No JVD. CARDIOVASCULAR: Regular rate and rhythm. No murmur appreciated. RESPIRATORY: No accessory muscle use. Clear to auscultation. Breath sounds equal bilaterally. GASTROINTESTINAL: Abdomen soft, non-tender, nondistended. Hepatic and splenic margins not palpable. MUSCULOSKELETAL: No obvious deformities. No clubbing. No cyanosis. No edema. NEUROLOGICAL: Awake and alert. No obvious cranial nerve deficits. Motor grossly within normal limits. Normal speech. PSYCHIATRIC: Appropriate mood and affect; insight and judgment normal. Data Data Last Documented VS Vital Signs Date Time Temp Pulse Resp B/P (MAP) Pulse Ox O2 Delivery O2 Flow Rate FiO2 10/16/17 13:46 69 17 107/65 (79) 97 Room Air 10/16/17 11:33 98.0 Orders Orders Complete Blood Count With Diff (10/16/17 12:08) Comprehensive Metabolic Panel (10/16/17 12:08) Urinalysis - C+S If Indicated (10/16/17 12:08) Blood Culture (10/16/17 12:08) Wound Culture And Gram Stain (10/16/17 12:08) Phosphorus (Po4) (10/16/17 12:29) Prothrombin Time / Inr (Pt) (10/16/17 13:00) Act Partial Throm Time (Ptt) (10/16/17 13:00) Sodium Chlor 0.9% 1000 Ml Inj (Ns 1000 M (10/16/17 13:15) Vancomycin Inj (Vancomycin Inj) (10/16/17 13:30) Methylprednisolone So Succ Inj (Solumedr (10/16/17 13:30) Cefepime Inj (Maxipime Inj) (10/16/17 13:30) Urine Culture (10/16/17 13:15) Admit Order (Ed Use Only) (10/16/17 14:42) Labs Laboratory Tests Test 10/16/17 12:30 10/16/17 12:45 10/16/17 13:15 White Blood Count 2.0 TH/MM3 Red Blood Count 3.82 MIL/MM3 Hemoglobin 11.1 GM/DL Hematocrit 32.5 % Mean Corpuscular Volume 85.0 FL Mean Corpuscular Hemoglobin 29.1 PG Mean Corpuscular Hemoglobin Concent 34.2 % Red Cell Distribution Width 12.8 % Platelet Count 15 TH/MM3 Mean Platelet Volume 9.1 FL Neutrophils (%) (Auto) 66.0 % Lymphocytes (%) (Auto) 23.9 % Monocytes (%) (Auto) 0.5 % Eosinophils (%) (Auto) 9.3 % Basophils (%) (Auto) 0.3 % Neutrophils # (Auto) 1.3 TH/MM3 Lymphocytes # (Auto) 0.5 TH/MM3 Monocytes # (Auto) 0.0 TH/MM3 Eosinophils # (Auto) 0.2 TH/MM3 Basophils # (Auto) 0.0 TH/MM3 CBC Comment AUTO DIFF Differential Comment AUTO DIFF CONFIRMED Platelet Estimate RARE Platelet Morphology Comment NORMAL Blood Urea Nitrogen 20 MG/DL Creatinine 0.64 MG/DL Random Glucose 151 MG/DL Total Protein 7.7 GM/DL Albumin 3.4 GM/DL Calcium Level 8.3 MG/DL Alkaline Phosphatase 112 U/L Aspartate Amino Transf (AST/SGOT) 177 U/L Alanine Aminotransferase (ALT/SGPT) 179 U/L Total Bilirubin 1.0 MG/DL Sodium Level 138 MEQ/L Potassium Level 3.7 MEQ/L Chloride Level 107 MEQ/L Carbon Dioxide Level 21.4 MEQ/L Anion Gap 10 MEQ/L Estimat Glomerular Filtration Rate 98 ML/MIN Phosphorus Level 3.2 MG/DL Prothrombin Time 11.4 SEC Prothromb Time International Ratio 1.1 RATIO Activated Partial Thromboplast Time 25.2 SEC Fibrinogen 530 mg/dL D-Dimer Quantitative (PE/DVT) 1.32 MG/L FEU Urine Color YELLOW Urine Turbidity HAZY Urine pH 6.0 Urine Specific [place] 1.019 Urine Protein 30 mg/dL Urine Glucose (UA) NEG mg/dL Urine Ketones 10 mg/dL Urine Occult Blood LARGE Urine Nitrite NEG Urine Bilirubin NEG Urine Urobilinogen 2.0 MG/DL Urine Leukocyte Esterase LARGE Urine RBC /hpf Urine WBC 32 /hpf Urine Squamous Epithelial Cells 2 /hpf Urine Bacteria RARE /hpf Urine Hyaline Casts 4 /lpf Urine Mucus FEW /lpf Microscopic Urinalysis Comment CULTURE INDICATED MDM Medical Decision Making Medical Screen Exam Complete: Yes Emergency Medical Condition: Yes Differential Diagnosis DIC, ITP, Sepsis Narrative Course 52-year-old female with a history of uncontrolled DM and Rheumatoid arthritis presents to the emergency department multiple medical complaints including sores on her mouth and genital region for 2 weeks and unresolved UTI symptoms. States that she has dysuria without hematuria. Patient states that she has also had 1 episode of nonbloody vomitus. Patient says that she has developed bruises on bilateral thighs over the last 2 weeks but denies trauma. Patient says that she was here approximately one week ago and was treated for urinary tract infection but she has not improved. Patient denies fever or chills. Denies chest pain or shortness of breath. Denies abdominal pain. Pt states medication compliance. After reviewing patient's chart, patient was treated with a urinary tract infection approximately 1 week ago. She apparently had these sores on her mouth during that time but claimed this was secondary to a fall that occurred prior to the visit. In addition, patient was treated for sepsis Mid August. At this point, she has failed outpatient therapy for antibiotics. There is a concern for sepsis, ITP, or DIC. CBC & BMP Diagram 10/16/17 12:30 Total Protein 7.7, Albumin 3.4, Calcium Level 8.3 L, Alkaline Phosphatase 112, Aspartate Amino Transf (AST/SGOT) 177 H, Alanine Aminotransferase (ALT/SGPT) 179 H, Total Bilirubin 1.0 Platelets 15,000- SoluMedrol 125 administered. Vancomycin and Cefepime administered in the ED. 1 L normal saline bolus with improvement in blood pressure. Patient will be admitted for new onset pancytopenia (ITP) and urinary tract infection refractory to treatment. Please see Dr. Thorpe note as well regarding this patient. Diagnosis Primary Impression: UTI (urinary tract infection) Qualified Codes: N30.00 - Acute cystitis without hematuria Additional Impressions: Thrombocytopenia Leukopenia Qualified Codes: D72.810 - Lymphocytopenia Admitting Information Admitting Physician Requests: Admit Condition: Stable Angelic Rosen Oct 16, 2017 12:29
[2017-10-16 12:51] LABS: AUTOMATED NEUTROPHIL # 1.3 TH/MM3 (1.8-7.7); BASOPHIL % 0.3 % (0.0-2.0); EOSINOPHIL # 0.2 TH/MM3 (0-0.4); EOSINOPHIL % 9.3 % (0.0-4.0); HEMATOCRIT 32.5 % (35.0-46.0); HEMOGLOBIN 11.1 GM/DL (11.6-15.3); LYMPH % 23.9 % (9.0-44.0); LYMPHOCYTE # 0.5 TH/MM3 (1.0-4.8); MEAN CORPUSCULAR HEMOGLOBIN 29.1 PG (27.0-34.0); MEAN CORPUSCULAR HGB CONC 34.2 % (32.0-36.0); MEAN PLATELET VOLUME 9.1 FL (7.0-11.0); MONO % 0.5 % (0.0-8.0); RED BLOOD COUNT 3.82 MIL/MM3 (4.00-5.30); RED CELL DISTRIBUTION WIDTH 12.8 % (11.6-17.2)
[2017-10-16 12:59] LABS: PLATELET COUNT 15 TH/MM3 (150-450)
[2017-10-16 13:15] LABS: ALBUMIN 3.4 GM/DL (3.4-5.0); ALT (GPT) 179 U/L (10-53); AST (GOT) 177 U/L (15-37); BICARBONATE 21.4 MEQ/L (21.0-32.0); BLOOD UREA NITROGEN 20 MG/DL (7-18); CALCIUM 8.3 MG/DL (8.5-10.1); CHLORIDE 107 MEQ/L (98-107); CREATININE 0.64 MG/DL (0.50-1.00); GLOMERULAR FILTRATION RATE 98 ML/MIN (>89); GLUCOSE,RANDOM 151 MG/DL (74-106); SODIUM (NA) 138 MEQ/L (136-145)
[2017-10-16] MEDS ORDERED: SODIUM CHLOR 0.9% 1000 ML INJ 1,000 ML IV ONE (13:15)
[2017-10-16 13:16] LABS: ALKALINE PHOSPHATASE 112 U/L (45-117); TOTAL PROTEIN 7.7 GM/DL (6.4-8.2)
[2017-10-16] MEDS ORDERED: CEFEPIME INJ 2,000 MG in SODIUM CHLORIDE 0.9% INJ 100 ML IV ONE (13:30)
[2017-10-16] MEDS ORDERED: methylPREDNISolone SOD SUCC 125 MG/2 ML VIAL IV PUSH ONE (13:30)
[2017-10-16] MEDS ORDERED: VANCOMYCIN INJ 1,100 MG in SODIUM CHLOR 0.9% 250 ML INJ 250 ML IV ONE (13:30)
[2017-10-16 13:40] LABS: PROTHROMBIN TIME - PATIENT 11.4 SEC (9.8-11.6)
[2017-10-16 13:45] LABS: INTERNATIONAL NORMALIZED RATIO 1.1 RATIO
[2017-10-16 13:49] LABS: BACTERIA, URINE RARE /hpf; BILIRUBIN, URINE NEG (NEG); BLOOD, URINE LARGE (NEG); GLUCOSE,URINE NEG (NEG); HYALINE CAST, URINE 4 /lpf (RARE); KETONE, URINE 10 mg/dL (NEG); MUCUS URINE FEW /lpf (OCC); NITRITE,URINE NEG (NEG); SQUAMOUS EPITHELIAL CELL URINE 2 /hpf (0-5); URINE COLOR YELLOW (YELLW/STRAW); URINE LEUKOCYTE ESTERASE LARGE (NEG)
[2017-10-16] MEDS ORDERED: diphenhydrAMINE HCL 50 MG/ML VIAL IV PUSH ONE (15:15)
--- NOTE | 2017-10-16 15:19 | PD ---
Physical Exam Date Seen by Provider: Oct 16, 2017 Time Seen by Provider: 13:00 Narrative I, Dr. Faye, have reviewed the advance practice practitioner's documentation and am in agreement, met with the patient face to face, made the diagnosis, and the medical decision making was done by me. *My assessment and Findings: Patient seen and evaluated PA, please see PA note for further details. She is here for several lesions on the lips, groin region , and ecchymosis to the thigh. She apparently had been in and treated with UTI recently. Laboratory Tests Test 10/16/17 12:30 10/16/17 12:45 10/16/17 13:15 White Blood Count 2.0 TH/MM3 (4.0-11.0) Red Blood Count 3.82 MIL/MM3 (4.00-5.30) Hemoglobin 11.1 GM/DL (11.6-15.3) Hematocrit 32.5 % (35.0-46.0) Platelet Count 15 TH/MM3 (150-450) Eosinophils (%) (Auto) 9.3 % (0.0-4.0) Neutrophils # (Auto) 1.3 TH/MM3 (1.8-7.7) Lymphocytes # (Auto) 0.5 TH/MM3 (1.0-4.8) Platelet Estimate RARE (NORMAL) Blood Urea Nitrogen 20 MG/DL (7-18) Random Glucose 151 MG/DL (74-106) Calcium Level 8.3 MG/DL (8.5-10.1) Aspartate Amino Transf (AST/SGOT) 177 U/L (15-37) Alanine Aminotransferase (ALT/SGPT) 179 U/L (10-53) Urine Turbidity HAZY (CLEAR) Urine Protein 30 mg/dL (NEG-TRACE) Urine Ketones 10 mg/dL (NEG) Urine Occult Blood LARGE (NEG) Urine Leukocyte Esterase LARGE (NEG) Urine WBC 32 /hpf (0-5) Urine Bacteria RARE /hpf (NONE) Urine Mucus FEW /lpf (OCC) She does have UTI still. Her lab work shows significant thrombocytopenia. She also has leukocytopenia, and this is of uncertain etiology. At this point, there is concern of TTP or ITP and IV antiepileptics were initiated as well as steroid IV. Plan would be to admit the patient for further treatment. Case was discussed with Dr. Trejo for admission. Data Data Last Documented VS Vital Signs Date Time Temp Pulse Resp B/P (MAP) Pulse Ox O2 Delivery O2 Flow Rate FiO2 10/16/17 13:46 69 17 107/65 (79) 97 Room Air 10/16/17 11:33 98.0 Orders Orders Complete Blood Count With Diff (10/16/17 12:08) Comprehensive Metabolic Panel (10/16/17 12:08) Urinalysis - C+S If Indicated (10/16/17 12:08) Blood Culture (10/16/17 12:08) Wound Culture And Gram Stain (10/16/17 12:08) Phosphorus (Po4) (10/16/17 12:29) Prothrombin Time / Inr (Pt) (10/16/17 13:00) Act Partial Throm Time (Ptt) (10/16/17 13:00) Sodium Chlor 0.9% 1000 Ml Inj (Ns 1000 M (10/16/17 13:15) Vancomycin Inj (Vancomycin Inj) (10/16/17 13:30) Methylprednisolone So Succ Inj (Solumedr (10/16/17 13:30) Cefepime Inj (Maxipime Inj) (10/16/17 13:30) Urine Culture (10/16/17 13:15) Admit Order (Ed Use Only) (10/16/17 14:42) Labs Laboratory Tests Test 10/16/17 12:30 10/16/17 12:45 10/16/17 13:15 White Blood Count 2.0 TH/MM3 Red Blood Count 3.82 MIL/MM3 Hemoglobin 11.1 GM/DL Hematocrit 32.5 % Mean Corpuscular Volume 85.0 FL Mean Corpuscular Hemoglobin 29.1 PG Mean Corpuscular Hemoglobin Concent 34.2 % Red Cell Distribution Width 12.8 % Platelet Count 15 TH/MM3 Mean Platelet Volume 9.1 FL Neutrophils (%) (Auto) 66.0 % Lymphocytes (%) (Auto) 23.9 % Monocytes (%) (Auto) 0.5 % Eosinophils (%) (Auto) 9.3 % Basophils (%) (Auto) 0.3 % Neutrophils # (Auto) 1.3 TH/MM3 Lymphocytes # (Auto) 0.5 TH/MM3 Monocytes # (Auto) 0.0 TH/MM3 Eosinophils # (Auto) 0.2 TH/MM3 Basophils # (Auto) 0.0 TH/MM3 CBC Comment AUTO DIFF Differential Comment AUTO DIFF CONFIRMED Platelet Estimate RARE Platelet Morphology Comment NORMAL Blood Urea Nitrogen 20 MG/DL Creatinine 0.64 MG/DL Random Glucose 151 MG/DL Total Protein 7.7 GM/DL Albumin 3.4 GM/DL Calcium Level 8.3 MG/DL Alkaline Phosphatase 112 U/L Aspartate Amino Transf (AST/SGOT) 177 U/L Alanine Aminotransferase (ALT/SGPT) 179 U/L Total Bilirubin 1.0 MG/DL Sodium Level 138 MEQ/L Potassium Level 3.7 MEQ/L Chloride Level 107 MEQ/L Carbon Dioxide Level 21.4 MEQ/L Anion Gap 10 MEQ/L Estimat Glomerular Filtration Rate 98 ML/MIN Phosphorus Level 3.2 MG/DL Prothrombin Time 11.4 SEC Prothromb Time International Ratio 1.1 RATIO Activated Partial Thromboplast Time 25.2 SEC Urine Color YELLOW Urine Turbidity HAZY Urine pH 6.0 Urine Specific [place] 1.019 Urine Protein 30 mg/dL Urine Glucose (UA) NEG mg/dL Urine Ketones 10 mg/dL Urine Occult Blood LARGE Urine Nitrite NEG Urine Bilirubin NEG Urine Urobilinogen 2.0 MG/DL Urine Leukocyte Esterase LARGE Urine RBC /hpf Urine WBC 32 /hpf Urine Squamous Epithelial Cells 2 /hpf Urine Bacteria RARE /hpf Urine Hyaline Casts 4 /lpf Urine Mucus FEW /lpf Microscopic Urinalysis Comment CULTURE INDICATED MDM Medical Record Reviewed: Yes Supervised Visit with TOM: Yes Diagnosis Primary Impression: UTI (urinary tract infection) Qualified Codes: N30.00 - Acute cystitis without hematuria Additional Impressions: Leukopenia Qualified Codes: D72.810 - Lymphocytopenia Thrombocytopenia Admitting Information Admitting Physician Requests: Admit Condition: Stable Issac Faye MD Oct 16, 2017 15:19
[2017-10-16] MEDS ORDERED: MORPHINE SULFATE 4 MG/ML INJ IV PUSH PRN (15:30)
[2017-10-16] MEDS ORDERED: ACETAMINOPHEN 325 MG TAB PO PRN (15:30)
[2017-10-16] MEDS ORDERED: SODIUM CHLORIDE 0.9% FLUSH 10 ML FLUSH IV FLUSH PRN (15:30)
[2017-10-16] MEDS ORDERED: NALOXONE HCL 0.4 MG/ML AMP IV PUSH PRN (15:30)
--- NOTE | 2017-10-16 15:37 | HHI.HP ---
HPI Service [facility] Primary Care Physician No Primary Care Physician Admission Diagnosis UTI/sepsis/low platelets Diagnoses: Chief Complaint: Mouth sores, groin sores, bruising Travel History International Travel<30 Days: No Contact w/Intl Traveler <30 Da: No Traveled to Known Affected Are: No History of Present Illness The patient is a 52-year-old female with past medical history significant for rheumatoid arthritis and diabetes who is presenting to the hospital for sores and easy bruising. She is a Citizen Of [place]-speaking patient and interpretation was provided by the computer interpretation system. The patient was recently discharged from the hospital for treatment of cellulitis and a urinary tract infection. The patient says she has developed sores in her mouth. She also describes a vaginal infection which she believes is similar to a fungus. She says it's involving her groin area. She has been itchy. She says she has had bruising and lesions on her lips over the past 2 weeks. She has noticed bruising on her legs for the past 3 days. She says that she has abdominal pain and when she vomits the pain gets better. She says that that abdominal pain is located in the upper stomach area. She has been experiencing shortness of breath, especially when talking. She denies any chest pain. She does endorse continued discomfort when urinating. She denies diarrhea. She says she came back to the emergency room on Wednesday but was discharged home. Review of Systems Except as stated in HPI: all other systems reviewed are Neg Past Family Social History Past Medical History Rheumatoid arthritis UTI Cellulitis Diabetes Allergies: Coded Allergies: penicillin G (Unverified Allergy, Intermediate, Rash, 10/16/17) vancomycin (Verified Allergy, Intermediate, Hives, 10/16/17) Active Ordered Medications Current Medications Medications (Trade) Dose Ordered Sig/Lionel Route Start Time Stop Time Status Last Admin (NovoLOG SUPPLEMENTAL SCALE) 1 ACHS SLIDING SCALE SQ 10/16/17 17:00 UNV Sodium Chloride 1,000 ml @ 75 mls/hr [id number] IV 10/16/17 15:30 10/18/17 07:29 UNV (NS Flush) 2 ml UNSCH PRN IV FLUSH 10/16/17 15:30 UNV (NS Flush) 2 ml BID IV FLUSH 10/16/17 21:00 UNV (Tylenol) 650 mg Q4H PRN PO 10/16/17 15:30 UNV (Zofran Inj) 4 mg Q6H PRN IVP 10/16/17 15:30 UNV (Tylenol) 650 mg Q6H PRN PO 10/16/17 15:30 UNV (Roxicodone) 10 mg Q4H PRN PO 10/16/17 15:30 UNV (Morphine Inj) 4 mg Q3H PRN IV PUSH 10/16/17 15:30 UNV (Roxicodone) 5 mg Q4H PRN PO 10/16/17 15:30 UNV (Narcan Inj) 0.4 mg UNSCH PRN IV PUSH 10/16/17 15:30 UNV (Leeann-Colace) 1 tab BID PO 10/16/17 21:00 UNV Family History Diabetes Social History The patient does not smoke or drink. Physical Exam Vital Signs Vital Signs Date Time Temp Pulse Resp B/P (MAP) Pulse Ox O2 Delivery O2 Flow Rate FiO2 10/16/17 13:46 69 17 107/65 (79) 97 Room Air 10/16/17 12:43 77 18 98/63 (75) 100 Room Air 10/16/17 11:33 98.0 113 16 102/70 (81) 95 Physical Exam GENERAL: Well developed well nourished in no apparent distress. GENITALS: multiple ulcerations with serosanguineous fluid surrounded by erythema. Nonfluctuant. The lesions extend into the perineum. Tender to palpation. SKIN: Eschar on lips. Bilateral lower extremities-upper thighs numerous round areas of ecchymosis. HEAD: Atraumatic. Normocephalic. EYES: Pupils equal and round. No scleral icterus. No injection or drainage. ENT: No nasal bleeding or discharge. Mucous membranes pink and moist. NECK: Trachea midline. No JVD. CARDIOVASCULAR: Regular rate and rhythm. No murmur appreciated. RESPIRATORY: No accessory muscle use. Clear to auscultation. Breath sounds equal bilaterally. GASTROINTESTINAL: Abdomen soft, non-tender, nondistended. Hepatic and splenic margins not palpable. MUSCULOSKELETAL: No obvious deformities. No clubbing. No cyanosis. No edema. NEUROLOGICAL: Awake and alert. No obvious cranial nerve deficits. Motor grossly within normal limits. Normal speech. PSYCHIATRIC: Appropriate mood and affect; insight and judgment normal. Laboratory Laboratory Tests Test 10/16/17 12:30 10/16/17 12:45 10/16/17 13:15 White Blood Count 2.0 Red Blood Count 3.82 Hemoglobin 11.1 Hematocrit 32.5 Mean Corpuscular Volume 85.0 Mean Corpuscular Hemoglobin 29.1 Mean Corpuscular Hemoglobin Concent 34.2 Red Cell Distribution Width 12.8 Platelet Count 15 Mean Platelet Volume 9.1 Neutrophils (%) (Auto) 66.0 Lymphocytes (%) (Auto) 23.9 Monocytes (%) (Auto) 0.5 Eosinophils (%) (Auto) 9.3 Basophils (%) (Auto) 0.3 Neutrophils # (Auto) 1.3 Lymphocytes # (Auto) 0.5 Monocytes # (Auto) 0.0 Eosinophils # (Auto) 0.2 Basophils # (Auto) 0.0 CBC Comment AUTO DIFF Differential Comment AUTO DIFF CONFIRMED Platelet Estimate RARE Platelet Morphology Comment NORMAL Blood Urea Nitrogen 20 Creatinine 0.64 Random Glucose 151 Total Protein 7.7 Albumin 3.4 Calcium Level 8.3 Alkaline Phosphatase 112 Aspartate Amino Transf (AST/SGOT) 177 Alanine Aminotransferase (ALT/SGPT) 179 Total Bilirubin 1.0 Sodium Level 138 Potassium Level 3.7 Chloride Level 107 Carbon Dioxide Level 21.4 Anion Gap 10 Estimat Glomerular Filtration Rate 98 Phosphorus Level 3.2 Prothrombin Time 11.4 Prothromb Time International Ratio 1.1 Activated Partial Thromboplast Time 25.2 Urine Color YELLOW Urine Turbidity HAZY Urine pH 6.0 Urine Specific [place] 1.019 Urine Protein 30 Urine Glucose (UA) NEG Urine Ketones 10 Urine Occult Blood LARGE Urine Nitrite NEG Urine Bilirubin NEG Urine Urobilinogen 2.0 Urine Leukocyte Esterase LARGE Urine RBC Urine WBC 32 Urine Squamous Epithelial Cells 2 Urine Bacteria RARE Urine Hyaline Casts 4 Urine Mucus FEW Microscopic Urinalysis Comment CULTURE INDICATED Date/Time Source Procedure Growth Status 10/16/17 12:35 Blood Peripheral Aerobic Blood Culture Pending Received 10/16/17 12:35 Blood Peripheral Anaerobic Blood Culture Pending Received 10/16/17 13:15 Urine Catheterized Urine Urine Culture Pending Received 10/16/17 12:30 Wound Groin Gram Stain Pending Received 10/16/17 12:30 Wound Groin Wound Culture Pending Received Result Diagram: 10/16/17 1230 10/16/17 1230 Katarina VTE Risk Assessment Katarina VTE Risk Assessment: Mod/High Risk (score >= 2) VTE Pharm Contraindication: Thrombocytopenia(<50) Katarina Risk Assessment Model Point Value = 1 Point Value = 2 Point Value = 3 Point Value = 5 Age 41-60 Minor surgery BMI > 25 kg/m2 Swollen legs Varicose veins or History of unexplained or recurrent spontaneous Oral contraceptives or hormone replacement Sepsis (< 1 month) Serious lung disease, including pneumonia (< 1 month) Abnormal pulmonary function Acute myocardial infarction Congestive heart failure (< 1 month) History of inflammatory bowel disease Medical patient at bed rest Age 61-74 Arthroscopic surgery Major open surgery (> 45 min) Laparoscopic surgery (> 45 min) Malignancy Confined to bed (> 72 hours) Immobilizing plaster cast Central venous access Age >= 75 History of VTE Family history of VTE Factor V Leiden Prothrombin [id number] Lupus anticoagulant Anticardiolipin antibodies Elevated serum homocysteine Heparin-induced thrombocytopenia Other congenital or acquired thrombophilia Stroke (< 1 month) Elective arthroplasty Hip, pelvis, or leg fracture Acute spinal cord injury (< 1 month) Prophylaxis Regimen Total Risk Factor Score Risk Level Prophylaxis Regimen 0-1 Low Early ambulation 2 Moderate Order ONE of the following: *Sequential Compression Device (SCD) *Heparin 5000 units SQ BID 3-4 Higher Order ONE of the following medications: *Heparin 5000 units SQ TID *Enoxaparin/Lovenox 40 mg SQ daily (WT < 150 kg, CrCl > 30 mL/min) *Enoxaparin/Lovenox 30 mg SQ daily (WT < 150 kg, CrCl > 10-29 mL/min) *Enoxaparin/Lovenox 30 mg SQ BID (WT < 150 kg, CrCl > 30 mL/min) AND/OR *Sequential Compression Device (SCD) 5 or more Highest Order ONE of the following medications: *Heparin 5000 units SQ TID (Preferred with Epidurals) *Enoxaparin/Lovenox 40 mg SQ daily (WT < 150 kg, CrCl > 30 mL/min) *Enoxaparin/Lovenox 30 mg SQ daily (WT < 150 kg, CrCl > 10-29 mL/min) *Enoxaparin/Lovenox 30 mg SQ BID (WT < 150 kg, CrCl > 30 mL/min) AND *Sequential Compression Device (SCD) Assessment and Plan Assessment and Plan Sepsis The patient has leukopenia as well as an elevated heart rate on admission. She has a UTI as well as multiple sores around the vaginal area. She received cefepime and vancomycin in the emergency department, however seemed to have reaction consists of red man syndrome with vancomycin. - Continue IV cefepime for now. - Follow urine culture, blood cultures and genital wound culture. - Infectious disease consult has been requested. - IV fluids. Pancytopenia The patient's platelet count is very low at 15. May be secondary to antibiotics received at prior hospitalization. The patient has a history of rheumatoid arthritis and autoimmune condition such as ITP is a possible etiology. INR not elevated. - Check fibrinogen level and d-dimer. - Follow CBC and transfuse as needed. - Hematology consult requested. - holding home meds. Abdominal pain/ Nausea/ Elevated LFTs The patient endorses epigastric abdominal pain that is relieved with vomiting. LFTs are elevated. - Check a hepatitis profile. - CT abdomen and pelvis pending. - Pain control with a bowel regimen. - Antiemetics as needed. Diabetes The patient is on metformin as an outpatient. - Hold metformin. - Insulin sliding scale. Shortness of breath Likely secondary to anemia. - Check chest x-ray. - Oxygen and nebs as needed. - Physical therapy evaluation. PPx: SCDs Discussed Condition With Pt, pt's nurse, Dr. Madsen Physician Certification 2 Midnight Certification Type: Admission for Inpatient Services Order for Inpatient Services The services are ordered in accordance with Medicare regulations or non- Medicare payer requirements, as applicable. In the case of services not specified as inpatient-only, they are appropriately provided as inpatient services in accordance with the 2-midnight benchmark. Estimated LOS (days): 3 days is the estimated time the patient will need to remain in the hospital, assuming treatment plan goals are met and no additional complications. Post-Hospital Plan: Not yet determined Rian Martínez DO Oct 16, 2017 15:37
[2017-10-16] MEDS ORDERED: DIATRIZOATE MEGLUM/DIATRIZOATE SOD 9 ML CUP PO ONE ×2 (15:50→17:00)
[2017-10-16 16:27] LABS: D-DIMER 1.32 MG/L FEU (0.00-0.50)
[2017-10-16] MEDS ORDERED: SODIUM CHLOR 0.9% 250 ML INJ 250 ML IV ONE (17:30)
--- NOTE | 2017-10-16 17:41 | RADRPT ---
EXAM DATE/TIME: 10/16/2017 16:38 [facility] COMPARISON: CHEST SINGLE AP, September 08, 2017, 9:41. INDICATIONS : Dyspnea. MEDICAL HISTORY : Arthritis. Neuropathy. Asthma. Diabetic. SURGICAL HISTORY : None. ENCOUNTER: Initial ACUITY: 1 week PAIN SCORE: 0/10 LOCATION: Bilateral chest FINDINGS: Single AP view of the chest. The lungs are clear. Cardiomediastinal silhouette within normal limits. No evidence of pleural effusion or pneumothorax. CONCLUSION: No acute cardiopulmonary disease identified. Steve Marcelo MD on October 16, 2017 at 17:39 Board Certified Radiologist. This report was verified electronically.
[2017-10-16] MEDS: INSULIN ASPART SUPPLEMENTAL SCALE SQ SCH ×2 (18:24→23:10)
[2017-10-16] MEDS: SODIUM CHLOR 0.9% 1000 ML INJ 1,000 ML IV SCH (18:26)
--- NOTE | 2017-10-16 18:28 | MB ---
cc: ROSMERY SORIANO DATE OF CONSULTATION: 10/16/2017. REASON FOR CONSULTATION: New onset pancytopenia. PATIENT PROFILE: The patient is a 52-year-old female. She was born in [place]. She speaks Russian. Her Tajik is very rudimentary. She has a 15-year-old daughter. She is unable to work because of arthritis and specifically rheumatoid arthritis, which was diagnosed in 2012. She does not smoke and she does not drink. HISTORY OF PRESENT ILLNESS: The patient is a 52-year-old female with a history of rheumatoid arthritis and diabetes. She recently had been on a number of antibiotics for possible cellulitis which she is no longer taking. She takes methotrexate and it took a while to figure out exactly what she was taking. I was able to converse with her through a electrical parts reconditioner. She initially told me that her methotrexate dose is anywhere between 2 and 8 pills once a week. During the past week, she decided that she would take the methotrexate daily and has taken the methotrexate for at least seven consecutive days. She felt that this might help her get better in terms of her arthritis. She came to the emergency room today because of ecchymosis and excoriations with bleeding involving the lower extremities. During the past several days, she has had mild diarrhea. She has developed severe sores primarily over the lower lip where the lower lip is now black. PAST SURGICAL HISTORY: No previous surgeries. PAST MEDICAL HISTORY: 1. Rheumatoid arthritis. 2. Diabetes mellitus. 3. Possible recent cellulitis. 4. Previous history of E. coli urinary tract infection on 09/08/2017. MEDICATIONS PRIOR TO ADMISSION: 1. Gabapentin. 2. Metformin. 3. Methotrexate 2.5 milligrams. It appears it is supposed to be either six or seven tablets once a week but as indicated above, she took a tablet daily for seven days. 4. Naproxen 250 milligrams p.o. twice a day PRN. 5. She recently completed a course of antibiotics, but she is not sure when. ALLERGIES: 1. PENICILLIN. 2. VANCOMYCIN. FAMILY HISTORY: Noncontributory. REVIEW OF SYSTEMS: Her review of systems is notable only for mouth sores, diarrhea, and ecchymoses, primarily lower extremities and some achiness of the joints. LABORATORY TESTS: 10/16: Hemoglobin 11, white count 2000, platelet count 15,000. The differential is unremarkable. On 09/12/2017, hemoglobin 13.2, white count 9000, platelet count 247,000. Differential unremarkable. On 10/16, lytes, BUN and creatinine notable only for a slight elevation in the BUN to 20, glucose 151, AST 177, ALT 179. IMAGING STUDIES: 10/16/2017, chest x-ray unremarkable. PHYSICAL EXAMINATION: GENERAL: The physical exam reveals a pleasant female. VITAL SIGNS: Blood pressure is 110/60, respiratory rate 18, pulse 74, afebrile, 02 sat 97%. HEAD, EYES, EARS, NOSE, THROAT: Head is normocephalic. The sclerae and conjunctivae are normal. Oropharynx, her lips are black from mucositis. LYMPHATIC: There is no cervical, supraclavicular, axillary or inguinal adenopathy. HEART: Regular rhythm. LUNGS: Clear without wheezes, rales or rhonchi. ABDOMEN: Without hepatosplenomegaly, masses or tenderness. EXTREMITIES: No evidence of edema. MUSCULOSKELETAL: No bone pain. NEUROLOGIC: No weakness. SKIN: The skin shows multiple ecchymoses lower extremities and some areas where there has been bleeding where the skin has been excoriated. ASSESSMENT: The patient is a 52-year-old female with rheumatoid arthritis who is supposed to take methotrexate once a week. She took the methotrexate daily for at least seven days. When methotrexate is administered in this way, it is highly toxic and can cause fatality. A low dose of methotrexate administered for many consecutive days can cause severe pancytopenia, mucositis and eventually exfoliation of the GI tract. I doubt that the current problem is related to her previous antibiotics, and I doubt that this is ITP based on her clear cut history of taking methotrexate in an inappropriate manner. PLAN: 1. Leucovorin 25 milligrams IV q. 6 hours. 2. Given the ecchymoses, I will give her a single unit donor platelet pack. I expect that the platelets will rise to a reasonable level as I do not believe this is an autoimmune thrombocytopenia. 3. Serum methotrexate level. 4. I do not see a reason for multiple IV antibiotics at the present time. She appears to have a urinary tract infection and I have started her on Bactrim DS one p.o. twice a day as she had a previous E. coli urinary tract infection. 5. CBC and platelet count daily and she will have a serum methotrexate level tomorrow. 6. I spoke to her at length about the use of methotrexate. I had the good fortune of having a electrical parts reconditioner helping me. I am optimistic that she will get better, but she may actually get worse for several more days. MD ADRIANNE Mendoza/EDGAR /5:40 PM /5:51 PM MTDTejal
[2017-10-16] MEDS ORDERED: LEUCOVORIN CALCIUM 50 MG VIAL IV PUSH SCH (19:00)
[2017-10-16] MEDS: DOCUSATE SODIUM 50 MG/SENNA 8.6 MG TAB PO SCH (21:00)
--- NOTE | 2017-10-16 22:39 | RADRPT ---
EXAM DATE/TIME: 10/16/2017 22:03 [facility] COMPARISON: No previous studies available for comparison. INDICATIONS : Abdomen pain. ORAL CONTRAST: Prescribed oral contrast ingested. RADIATION DOSE: 6.64 CTDIvol (mGy) MEDICAL HISTORY : Diabetes mellitus type 2. SURGICAL HISTORY : None. ENCOUNTER: Initial ACUITY: 1 day PAIN SCALE: 6/10 LOCATION: Bilateral abdomen TECHNIQUE: Volumetric scanning of the abdomen and pelvis was performed. Using automated exposure control and ad justment of the mA and/or kV according to patient size, radiation dose was kept as low as reasonably achievable to obtain optimal diagnostic quality images. DICOM format image data is available electro nically for review and comparison. FINDINGS: LOWER LUNGS: The visualized lower lungs are clear. LIVER: Distended gallbladder. Liver within normal limits. No calcified gallstones identified. SPLEEN: Normal size without lesion. PANCREAS: Within normal limits. KIDNEYS: Normal in size and shape. There is no mass, stone, or hydronephrosis. ADRENAL GLANDS: Within normal limits. VASCULAR: There is no aortic aneurysm. BOWEL/MESENTERY: Mild nonspecific diffuse wall thickening of the ascending colon. No evidence of bowel dilatation. Ronald endix not visualized. No free air or free fluid. ABDOMINAL WALL: Within normal limits. RETROPERITONEUM: There is no lymphadenopathy. BLADDER: No wall thickening or mass. REPRODUCTIVE: Within normal limits. INGUINAL: There is no lymphadenopathy or hernia. MUSCULOSKELETAL: Pars interarticularis defects of L5. Moderate to severe hip osteoarthritic findings. CONCLUSION: 1. Nonspecific diffuse wall thickening the ascending colon suggesting colitis. No free air or free fl uid. No bowel dilatation. 2. Moderate to severe bilateral hip osteoarthritic findings. 3. Pars interarticularis defects of L5. Steve Marcelo MD on October 16, 2017 at 22:33 Board Certified Radiologist. This report was verified electronically.
[2017-10-16] MEDS: CIPROFLOXACIN 500 MG TAB PO SCH (23:03)
[2017-10-16] MEDS: SODIUM CHLORIDE 0.9% FLUSH 10 ML FLUSH IV FLUSH SCH (23:04)
[2017-10-17 00:02] VITALS: BP 100/60; PULSE 70; RESP 16; TEMP 96; O2SAT 98
[2017-10-17] MEDS ORDERED: CEFEPIME INJ 2,000 MG in SODIUM CHLORIDE 0.9% INJ 100 ML IV SCH (01:00)
[2017-10-17] MEDS: LEUCOVORIN IV SCH ×4 (02:02→20:53)
[2017-10-17 04:12] VITALS: BP 96/58; PULSE 79; RESP 18; TEMP 98.7; O2SAT 98
[2017-10-17] MEDS: SODIUM CHLOR 0.9% 1000 ML INJ 1,000 ML IV SCH (05:56)
[2017-10-17 07:58] LABS: AUTOMATED NEUTROPHIL # 1.3 TH/MM3 (1.8-7.7); EOSINOPHIL % 0.1 % (0.0-4.0); HEMATOCRIT 25.3 % (35.0-46.0); HEMOGLOBIN 9.2 GM/DL (11.6-15.3); LYMPH % 24.9 % (9.0-44.0); LYMPHOCYTE # 0.4 TH/MM3 (1.0-4.8); MEAN CELL VOLUME 82.4 FL (80.0-100.0); MEAN CORPUSCULAR HEMOGLOBIN 29.9 PG (27.0-34.0); MEAN PLATELET VOLUME 8.5 FL (7.0-11.0); MONO % 0.2 % (0.0-8.0); NEUT % 74.8 % (16.0-70.0); PLATELET COUNT 60 TH/MM3 (150-450); RED BLOOD COUNT 3.07 MIL/MM3 (4.00-5.30); RED CELL DISTRIBUTION WIDTH 12.3 % (11.6-17.2); WHITE BLOOD COUNT 1.8 TH/MM3 (4.0-11.0)
[2017-10-17 08:00] VITALS: BP 99/55; PULSE 70; RESP 18; TEMP 97.6; O2SAT 95
[2017-10-17 08:09] LABS: INTERNATIONAL NORMALIZED RATIO 1.2 RATIO; PROTHROMBIN TIME - PATIENT 12.3 SEC (9.8-11.6)
[2017-10-17 08:27] LABS: MEAN CORPUSCULAR HGB CONC 36.3 % (32.0-36.0)
[2017-10-17 08:44] LABS: ALKALINE PHOSPHATASE 101 U/L (45-117); ALT (GPT) 131 U/L (10-53); AST (GOT) 101 U/L (15-37); BICARBONATE 21.5 MEQ/L (21.0-32.0); BLOOD UREA NITROGEN 13 MG/DL (7-18); CALCIUM 7.7 MG/DL (8.5-10.1); CHLORIDE 108 MEQ/L (98-107); CREATININE 0.38 MG/DL (0.50-1.00); GLOMERULAR FILTRATION RATE 179 ML/MIN (>89); GLUCOSE,RANDOM 183 MG/DL (74-106); SODIUM (NA) 140 MEQ/L (136-145); TOTAL BILIRUBIN ADULT 0.6 MG/DL (0.2-1.0); TOTAL PROTEIN 6.7 GM/DL (6.4-8.2)
[2017-10-17] MEDS: CIPROFLOXACIN 500 MG TAB PO SCH (08:52)
[2017-10-17] MEDS: SODIUM CHLORIDE 0.9% FLUSH 10 ML FLUSH IV FLUSH SCH ×2 (08:52→20:55)
[2017-10-17] MEDS: DOCUSATE SODIUM 50 MG/SENNA 8.6 MG TAB PO SCH ×2 (08:52→20:54)
[2017-10-17] MEDS: INSULIN ASPART SUPPLEMENTAL SCALE SQ SCH ×4 (08:59→20:55)
[2017-10-17 09:26] LABS: LYMPHOCYTES 24 % (9-44); NEUTROPHIL # MANUAL DIFF 1.4 TH/MM3 (1.8-7.7); POLYS (SEG NEUTROPHILS) 76 % (16-70)
[2017-10-17] MEDS: POTASSIUM CHLOR 20 MEQ PREMIX 100 ML IV SCH ×2 (10:00→12:00)
[2017-10-17] MEDS ORDERED: POTASSIUM CHLORIDE 25 MEQ EFFERVESCENT TAB PO ONE ×2 (10:00→14:00)
[2017-10-17] MEDS ORDERED: metroNIDAZOLE 500 MG INJ 100 ML IV SCH (11:00)
--- NOTE | 2017-10-17 11:28 | PD.ONC.PN ---
Subjective Subjective Remarks Afebrile overnight. Patient resting in bed in nad. Still having lots of pain from open wounds. Objective Data Date Time Temp Pulse Resp B/P (MAP) Pulse Ox O2 Delivery O2 Flow Rate FiO2 10/17/17 08:00 97.6 70 18 99/55 (70) 95 10/17/17 00:02 96.0 70 16 100/60 98 10/16/17 23:45 96.0 78 18 98/59 (72) 92 10/16/17 20:30 95.6 72 16 95/69 (78) 95 10/16/17 17:40 98.2 73 17 105/58 (74) 100 10/16/17 17:15 10/16/17 16:30 74 19 101/58 (72) 97 Room Air 10/16/17 15:00 76 19 130/67 (88) 100 Room Air 10/16/17 13:46 69 17 107/65 (79) 97 Room Air 10/16/17 12:43 77 18 98/63 (75) 100 Room Air 10/16/17 11:33 98.0 113 16 102/70 (81) 95 10/17/17 10/17/17 10/17/17 07:00 15:00 23:00 Intake Total 1047 ml Balance 1047 ml Result Diagram: 10/17/17 0732 10/17/17 0732 Laboratory Results Laboratory Tests Test 10/16/17 12:30 10/16/17 12:45 10/16/17 13:15 10/16/17 18:22 White Blood Count 2.0 TH/MM3 Red Blood Count 3.82 MIL/MM3 Hemoglobin 11.1 GM/DL Hematocrit 32.5 % Mean Corpuscular Volume 85.0 FL Mean Corpuscular Hemoglobin 29.1 PG Mean Corpuscular Hemoglobin Concent 34.2 % Red Cell Distribution Width 12.8 % Platelet Count 15 TH/MM3 Mean Platelet Volume 9.1 FL Neutrophils (%) (Auto) 66.0 % Lymphocytes (%) (Auto) 23.9 % Monocytes (%) (Auto) 0.5 % Eosinophils (%) (Auto) 9.3 % Basophils (%) (Auto) 0.3 % Neutrophils # (Auto) 1.3 TH/MM3 Lymphocytes # (Auto) 0.5 TH/MM3 Monocytes # (Auto) 0.0 TH/MM3 Eosinophils # (Auto) 0.2 TH/MM3 Basophils # (Auto) 0.0 TH/MM3 CBC Comment AUTO DIFF Differential Comment AUTO DIFF CONFIRMED Platelet Estimate RARE Platelet Morphology Comment NORMAL Blood Urea Nitrogen 20 MG/DL Creatinine 0.64 MG/DL Random Glucose 151 MG/DL Total Protein 7.7 GM/DL Albumin 3.4 GM/DL Calcium Level 8.3 MG/DL Alkaline Phosphatase 112 U/L Aspartate Amino Transf (AST/SGOT) 177 U/L Alanine Aminotransferase (ALT/SGPT) 179 U/L Total Bilirubin 1.0 MG/DL Sodium Level 138 MEQ/L Potassium Level 3.7 MEQ/L Chloride Level 107 MEQ/L Carbon Dioxide Level 21.4 MEQ/L Anion Gap 10 MEQ/L Estimat Glomerular Filtration Rate 98 ML/MIN Phosphorus Level 3.2 MG/DL Prothrombin Time 11.4 SEC Prothromb Time International Ratio 1.1 RATIO Activated Partial Thromboplast Time 25.2 SEC Fibrinogen 530 mg/dL D-Dimer Quantitative (PE/DVT) 1.32 MG/L FEU Urine Color YELLOW Urine Turbidity HAZY Urine pH 6.0 Urine Specific [place] 1.019 Urine Protein 30 mg/dL Urine Glucose (UA) NEG mg/dL Urine Ketones 10 mg/dL Urine Occult Blood LARGE Urine Nitrite NEG Urine Bilirubin NEG Urine Urobilinogen 2.0 MG/DL Urine Leukocyte Esterase LARGE Urine RBC /hpf Urine WBC 32 /hpf Urine Squamous Epithelial Cells 2 /hpf Urine Bacteria RARE /hpf Urine Hyaline Casts 4 /lpf Urine Mucus FEW /lpf Microscopic Urinalysis Comment CULTURE INDICATED Test 10/17/17 07:32 White Blood Count 1.8 TH/MM3 Red Blood Count 3.07 MIL/MM3 Hemoglobin 9.2 GM/DL Hematocrit 25.3 % Mean Corpuscular Volume 82.4 FL Mean Corpuscular Hemoglobin 29.9 PG Mean Corpuscular Hemoglobin Concent 36.3 % Red Cell Distribution Width 12.3 % Platelet Count 60 TH/MM3 Mean Platelet Volume 8.5 FL Neutrophils (%) (Auto) 74.8 % Lymphocytes (%) (Auto) 24.9 % Monocytes (%) (Auto) 0.2 % Eosinophils (%) (Auto) 0.1 % Basophils (%) (Auto) 0.0 % Neutrophils # (Auto) 1.3 TH/MM3 Lymphocytes # (Auto) 0.4 TH/MM3 Monocytes # (Auto) 0.0 TH/MM3 Eosinophils # (Auto) 0.0 TH/MM3 Basophils # (Auto) 0.0 TH/MM3 CBC Comment AUTO DIFF Differential Total Cells Counted 100 Neutrophils % (Manual) 76 % Lymphocytes % 24 % Neutrophils # (Manual) 1.4 TH/MM3 Differential Comment FINAL DIFF MANUAL Platelet Estimate LOW Platelet Morphology Comment NORMAL Red Cell Morphology Comment NORMAL Prothrombin Time 12.3 SEC Prothromb Time International Ratio 1.2 RATIO Blood Urea Nitrogen 13 MG/DL Creatinine 0.38 MG/DL Random Glucose 183 MG/DL Total Protein 6.7 GM/DL Albumin 3.0 GM/DL Calcium Level 7.7 MG/DL Alkaline Phosphatase 101 U/L Aspartate Amino Transf (AST/SGOT) 101 U/L Alanine Aminotransferase (ALT/SGPT) 131 U/L Total Bilirubin 0.6 MG/DL Sodium Level 140 MEQ/L Potassium Level 2.6 MEQ/L Chloride Level 108 MEQ/L Carbon Dioxide Level 21.5 MEQ/L Anion Gap 11 MEQ/L Estimat Glomerular Filtration Rate 179 ML/MIN Culture Results Microbiology Date/Time Source Procedure Growth Status 10/16/17 12:35 Blood Peripheral Aerobic Blood Culture - Preliminary NO GROWTH IN 1 DAY Resulted 10/16/17 12:35 Blood Peripheral Anaerobic Blood Culture - Preliminary NO GROWTH IN 1 DAY Resulted 10/16/17 12:30 Blood Peripheral Aerobic Blood Culture - Preliminary NO GROWTH IN 1 DAY Resulted 10/16/17 12:30 Blood Peripheral Anaerobic Blood Culture - Preliminary NO GROWTH IN 1 DAY Resulted 10/16/17 13:15 Urine Catheterized Urine Urine Culture Pending Received 10/16/17 12:30 Wound Groin Gram Stain - Final Resulted 10/16/17 12:30 Wound Groin Wound Culture Pending Resulted Administered Medications Medications (Trade) Dose Ordered Sig/Lionel Route PRN Reason Start Time Stop Time Status Last Admin Dose Admin Insulin Aspart (NovoLOG SUPPLEMENTAL SCALE) 1 ACHS SLIDING SCALE SQ 10/16/17 17:00 10/17/17 08:59 Sodium Chloride 1,000 ml @ 75 mls/hr [id number] IV 10/16/17 15:30 10/18/17 07:29 10/17/17 05:56 Sodium Chloride (NS Flush) 2 ml BID IV FLUSH 10/16/17 21:00 10/16/17 23:04 Oxycodone HCl (Roxicodone) 5 mg Q4H PRN PO PAIN SCALE 3 TO 5 10/16/17 15:30 10/17/17 10:33 Senna/Docusate Sodium (Leeann-Colace) 1 tab BID PO 10/16/17 21:00 10/17/17 08:52 Leucovorin Calcium 25 mg/ Syringe / Bag ml @ 0 mls/hr Q6H IV 10/17/17 01:00 10/17/17 05:57 Objective Remarks GENERAL: Middle aged female sitting up in bed in nad. SKIN: Warm and dry. open skin with breakdown around mucous membranes and inguinal folds. HEAD: Normocephalic. MOUTH: large scab along lips EYES: No injection or drainage. NECK: Supple, trachea midline CARDIOVASCULAR: Regular rate and rhythm RESPIRATORY: Breath sounds equal bilaterally. No accessory muscle use. GASTROINTESTINAL: Abdomen soft, non-tender, nondistended. EXTREMITIES: No cyanosis NEUROLOGICAL: awake and alert. moving extremities. Assessment/Plan Assessment 52y/o with RA. Oncology consulted for pancytopenia, mucositis. Plan 1. monitor CBC 2. await MTX level. Attending Statement The exam, history, and the medical decision-making described in the above note were completed with the assistance of the mid-level provider. I reviewed and agree with the findings presented. I attest that I had a [id number] encounter with the patient on the same day, and personally performed and documented my assessment and findings in the medical record. having more diarrhea and lip now bleeding. has severe vaginal mucositis and some desquamation of skin in groin without obvious vesicles. All this including the fall in the hemoglobin due to the MTX. Will need to maintain hydration as oral intake will decrease and expect she will get worse for a few days then begin to turn around. Will continue leucovorin until levels non toxic level which should take little time as the oral dose was low but exposure was prolonged. Kinsey Hargrove Oct 17, 2017 11:28 Aquiles Morley MD Oct 17, 2017 12:02
[2017-10-17 12:00] VITALS: BP 93/55; PULSE 66; RESP 16; TEMP 97.7; O2SAT 96
--- NOTE | 2017-10-17 12:21 | HHI.PR ---
Subjective Remarks The patient reports vaginal bleeding and diarrhea. She has not been eating much. She says her face is getting red. She says she took methotrexate daily to feel better faster. Discussed with process control engineer on computer and nurse at the bedside. Objective Vitals Vital Signs Date Time Temp Pulse Resp B/P (MAP) Pulse Ox O2 Delivery O2 Flow Rate FiO2 10/17/17 08:00 97.6 70 18 99/55 (70) 95 10/17/17 00:02 96.0 70 16 100/60 98 10/16/17 23:45 96.0 78 18 98/59 (72) 92 10/16/17 20:30 95.6 72 16 95/69 (78) 95 10/16/17 17:40 98.2 73 17 105/58 (74) 100 10/16/17 17:15 10/16/17 16:30 74 19 101/58 (72) 97 Room Air 10/16/17 15:00 76 19 130/67 (88) 100 Room Air 10/16/17 13:46 69 17 107/65 (79) 97 Room Air 10/16/17 12:43 77 18 98/63 (75) 100 Room Air I/O 10/16/17 10/16/17 10/16/17 10/17/17 10/17/17 10/17/17 07:00 15:00 23:00 07:00 15:00 23:00 Intake Total 1230 ml 1047 ml Balance 1230 ml 1047 ml Intake Oral 680 ml IV Total 1230 ml Platelets 347 ml Blood Product IV Normal Saline Flush 20 ml # Voids 5 # Bowel Movements 1 Result Diagram: 10/17/17 0732 10/17/17 0732 Imaging Last Impressions Chest X-Ray 10/16/17 0000 Signed Impressions: Service Date/Time: Monday, October 16, 2017 16:38 - CONCLUSION: No acute cardiopulmonary disease identified. Steve Marcelo MD Abdomen/Pelvis CT 10/16/17 0000 Signed Impressions: Service Date/Time: Monday, October 16, 2017 22:03 - CONCLUSION: 1. Nonspecific diffuse wall thickening the ascending colon suggesting colitis. No free air or free fluid. No bowel dilatation. 2. Moderate to severe bilateral hip osteoarthritic findings. 3. Pars interarticularis defects of L5. Steve Marcelo MD Objective Remarks GENERAL: Well developed well nourished in no apparent distress. GENITALS: multiple ulcerations with serosanguineous fluid surrounded by erythema. Nonfluctuant. The lesions extend into the perineum. Tender to palpation. SKIN: Eschar on lips. Bilateral lower extremities-upper thighs numerous round areas of ecchymosis. HEAD: Atraumatic. Normocephalic. Facial flushing on upper cheeks. EYES: Pupils equal and round. No scleral icterus. No injection or drainage. ENT: No nasal bleeding or discharge. Mucous membranes pink and moist. NECK: Trachea midline. No JVD. CARDIOVASCULAR: Regular rate and rhythm. No murmur appreciated. RESPIRATORY: No accessory muscle use. Clear to auscultation. Breath sounds equal bilaterally. GASTROINTESTINAL: Abdomen soft, mildly tender, nondistended. Hepatic and splenic margins not palpable. MUSCULOSKELETAL: No obvious deformities. No clubbing. No cyanosis. No edema. NEUROLOGICAL: Awake and alert. No obvious cranial nerve deficits. Motor grossly within normal limits. Normal speech. PSYCHIATRIC: Appropriate mood and affect; insight and judgment normal. Medications and IVs Current Medications Medications (Trade) Dose Ordered Sig/Lionel Route Start Time Stop Time Status Last Admin (NovoLOG SUPPLEMENTAL SCALE) 1 ACHS SLIDING SCALE SQ 10/16/17 17:00 10/17/17 08:59 Sodium Chloride 1,000 ml @ 75 mls/hr [id number] IV 10/16/17 15:30 10/18/17 07:29 10/17/17 05:56 (NS Flush) 2 ml UNSCH PRN IV FLUSH 10/16/17 15:30 (NS Flush) 2 ml BID IV FLUSH 10/16/17 21:00 10/16/17 23:04 (Tylenol) 650 mg Q4H PRN PO 10/16/17 15:30 (Zofran Inj) 4 mg Q6H PRN IVP 10/16/17 15:30 (Tylenol) 650 mg Q6H PRN PO 10/16/17 15:30 (Roxicodone) 10 mg Q4H PRN PO 10/16/17 15:30 (Morphine Inj) 4 mg Q3H PRN IV PUSH 10/16/17 15:30 (Roxicodone) 5 mg Q4H PRN PO 10/16/17 15:30 10/17/17 10:33 (Narcan Inj) 0.4 mg UNSCH PRN IV PUSH 10/16/17 15:30 (Leeann-Colace) 1 tab BID PO 10/16/17 21:00 10/17/17 08:52 Leucovorin Calcium 25 mg/ Syringe / Bag ml @ 0 mls/hr Q6H IV 10/17/17 01:00 10/17/17 05:57 Potassium Chloride 100 ml @ 50 mls/hr Q2H IV 10/17/17 10:00 10/17/17 13:59 Metronidazole 100 ml @ 100 mls/hr Q8H IV 10/17/17 11:00 10/17/17 11:32 Ciprofloxacin/ Dextrose 200 ml @ 200 mls/hr Q12H IV 10/17/17 21:00 (Zovirax) 200 mg 5 TIMES A DAY PO 10/17/17 11:30 A/P Assessment and Plan Sepsis The patient has leukopenia as well as an elevated heart rate on admission. She has a UTI as well as multiple sores around the vaginal area. She received cefepime and vancomycin in the emergency department, however seemed to have reaction consists of red man syndrome with vancomycin. - Continue IV Cipro/ Flagyl and PO acyclovir for now. - Follow urine culture, blood cultures and genital wound culture. - Infectious disease consult has been requested. - IV fluids. Pancytopenia The patient's platelet count is very low at 15. Hematology consult appreciated. S/t pt taking methotrexate daily instead of weekly. S/p plt transfusion with good results. - Follow CBC and transfuse as needed. - Hematology following. - holding home meds. - IVFs/ supportive care. Abdominal pain/ Nausea/ Elevated LFTs The patient endorses epigastric abdominal pain that is relieved with vomiting. LFTs are elevated. CT with evidence of colitis. - Check a hepatitis profile. - Cipro/ Flagyl IV. - Pain control with a bowel regimen. - Antiemetics as needed. Diabetes The patient is on metformin as an outpatient. - Hold metformin. - Insulin sliding scale. Shortness of breath Likely secondary to anemia. CXR unremarkable. - Oxygen and nebs as needed. - Physical therapy evaluation. Vaginal bleeding The pt reports blood every time she urinates. Suspect s/t bleeding wounds surrounding vagina caused by mucositis from methotrexate toxicity. Urine culture with mixed growth. - treat underlying mucositis. - consider OBGYN eval. Hypokalemia Likely s/t diarrhea and poor PO intake. - replete and monitor. PPx: SCDs Discharge Planning Awaiting improvement in blood counts Rian Martínez DO Oct 17, 2017 12:20
[2017-10-17] MEDS: ACYCLOVIR 200 MG CAP PO SCH ×4 (12:41→21:00)
--- NOTE | 2017-10-17 14:58 | PD.WCN.NOT ---
Wound Consult Description: Order for consult by Dr. Beena WILKERSON for Vagina Communicated with: Brittany MANTILLA [address] [place] [address], Dr.Coye WILKERSON Recommendation: 1) Cleanse cinda area/Vagina with normal saline pat dry BID. 2) Apply Calazime to open areas BID 3) Reinforce teaching to patient to try and keep area clean and dry. Additional Information: Patient was seen today on by instructional writer and Brittany MANTILLA [address] [place] [address].Patient alert in bed denies any discomfort or distress at this time.Assessment finding Excoriation noted to bilateral lower extremities with no open areas or drainage. Patient has multiple areas of unroofed [place] and Erosion of skin folds of Vaginal,perineal and inner thigh area ranging from ~1.0cm x ~1.0cm to largest unroofed Bull[place] being 2.3cm x 1.2cm.Scant drainage noted no odor noted.Skin prep applied to Excoriated areas.Labia,Vagina and perineal area cleansed with normal saline pat dry Calazime applied to skin folds and open areas.Patient tolerated wound care well .Instructed patient to keep area clean and dry avoid wear constricting underpants. Anupam Arciniega [facility] Oct 17, 2017 14:58
[2017-10-17] MEDS: 1/2 NS + KCL 20 MEQ INJ 1,000 ML IV SCH ×2 (15:41→18:32)
[2017-10-17 16:00] VITALS: BP 114/56; PULSE 64; RESP 16; TEMP 97.9; O2SAT 100
--- NOTE | 2017-10-17 17:38 | PD.ID.CON ---
History of Present Illness Service ID Consult Requested By Dr Martínez Reason for Consult weeping genital wounds Primary Care Physician No Primary Care Physician Diagnoses: History of Present Illness 52 yo female with debilitating RA, inability to work 2/2 it she developped MTX toxicity 2/2 pt exceded recommended dosage in an attempt to get better faster She c/o genital painful ulcerations x 2 mos and oral ulcerations x 2 weeks She was found rto have pancytopenia, neurtropenia She also had abnormal UA, though clx appear to be contamination Pt was started on multiple abx and acyclovir Pt was seen saman oncologist and was started on leukovorin blood clx are negative @ 1 day I also saw her recently for facial rash She was on multiple abx, co diarrhea and her CT abdomen showed colitis Past Family Social History Allergies: Coded Allergies: penicillin G (Unverified Allergy, Intermediate, Rash, 10/16/17) vancomycin (Verified Allergy, Intermediate, Hives, 10/16/17) Past Medical History Rheumatoid arthritis UTI Cellulitis Diabetes Past Surgical History none Active Ordered Medications Medications where reviewed in EMR Antibiotics Include: cipro acyclovir Family History DM Social History No Tobacco. No ETOH. No Illicit Drugs. Physical Exam Vital Signs Vital Signs Date Time Temp Pulse Resp B/P (MAP) Pulse Ox O2 Delivery O2 Flow Rate FiO2 10/17/17 12:00 97.7 66 16 93/55 (68) 96 10/17/17 08:00 97.6 70 18 99/55 (70) 95 10/17/17 00:02 96.0 70 16 100/60 98 10/16/17 23:45 96.0 78 18 98/59 (72) 92 10/16/17 20:30 95.6 72 16 95/69 (78) 95 10/16/17 17:40 98.2 73 17 105/58 (74) 100 10/16/17 17:15 Physical Exam CONSTITUTIONAL/GENERAL: This is an adequately nourished patient, in no apparent distress. TUBES/LINES/DRAINS: SKIN: No jaundice, rashes, or lesions. Skin temperature appropriate. Not diaphoretic. HEAD: Atraumatic. Normocephalic. EYES: Pupils equal and round and reactive. Extraocular motions intact. No scleral icterus. No injection or drainage. Fundi not examined. ENT: Hearing grossly normal. Nose without bleeding or purulent drainage. Prominent oral ulcerations with dark bloody crust NECK: Trachea midline. Supple, nontender. CARDIOVASCULAR: Regular rate and rhythm without murmurs, gallops, or rubs. No JVD. Peripheral pulses symmetric. RESPIRATORY/CHEST: Symmetric, unlabored respirations. Clear to auscultation. Breath sounds equal bilaterally. No wheezes, rales, or rhonchi. GASTROINTESTINAL: Abdomen soft, non-tender, nondistended. No hepato-splenomegaly , or palpable masses. No guarding. Bowel sounds present. GENITOURINARY: Without palpable bladder distension. Pt has multiple very painful ulcerations of inguinal and pubic areas, partial thickness, shallow, claen based and large - up to 1 cm, they r not groupped MUSCULOSKELETAL: Extremities without clubbing, cyanosis, or edema. No joint tenderness or effusion noted. No calf tenderness. No mottling or clubbing. LYMPHATICS: No palpable cervical or supraclavicular adenopathy. NEUROLOGICAL: Awake and alert. Motor and sensory grossly within normal limits. Follows commands. clear speech. Moves all extremities. PSYCHIATRIC: No obvious anxiety/depression. no apparent hallucinations or other psychotic thought process. Laboratory Laboratory Tests Test 10/16/17 18:22 10/17/17 07:32 White Blood Count 1.8 Red Blood Count 3.07 Hemoglobin 9.2 Hematocrit 25.3 Mean Corpuscular Volume 82.4 Mean Corpuscular Hemoglobin 29.9 Mean Corpuscular Hemoglobin Concent 36.3 Red Cell Distribution Width 12.3 Platelet Count 60 Mean Platelet Volume 8.5 Neutrophils (%) (Auto) 74.8 Lymphocytes (%) (Auto) 24.9 Monocytes (%) (Auto) 0.2 Eosinophils (%) (Auto) 0.1 Basophils (%) (Auto) 0.0 Neutrophils # (Auto) 1.3 Lymphocytes # (Auto) 0.4 Monocytes # (Auto) 0.0 Eosinophils # (Auto) 0.0 Basophils # (Auto) 0.0 CBC Comment AUTO DIFF Differential Total Cells Counted 100 Neutrophils % (Manual) 76 Lymphocytes % 24 Neutrophils # (Manual) 1.4 Differential Comment FINAL DIFF MANUAL Platelet Estimate LOW Platelet Morphology Comment NORMAL Red Cell Morphology Comment NORMAL Prothrombin Time 12.3 Prothromb Time International Ratio 1.2 Blood Urea Nitrogen 13 Creatinine 0.38 Random Glucose 183 Total Protein 6.7 Albumin 3.0 Calcium Level 7.7 Alkaline Phosphatase 101 Aspartate Amino Transf (AST/SGOT) 101 Alanine Aminotransferase (ALT/SGPT) 131 Total Bilirubin 0.6 Sodium Level 140 Potassium Level 2.6 Chloride Level 108 Carbon Dioxide Level 21.5 Anion Gap 11 Estimat Glomerular Filtration Rate 179 Date/Time Source Procedure Growth Status 10/16/17 12:35 Blood Peripheral Aerobic Blood Culture - Preliminary NO GROWTH IN 1 DAY Resulted 10/16/17 12:35 Blood Peripheral Anaerobic Blood Culture - Preliminary NO GROWTH IN 1 DAY Resulted 10/16/17 13:15 Urine Catheterized Urine Urine Culture - Final 50-100,000 CFU/ML MIXED LICO... Complete 10/16/17 12:30 Wound Groin Gram Stain - Final Resulted 10/16/17 12:30 Wound Culture - Preliminary Gram Negative [place] Group B Beta Strep Resulted Result Diagram: 10/17/17 0732 10/17/17 0732 Imaging Last Impressions Chest X-Ray 10/16/17 0000 Signed Impressions: Service Date/Time: Monday, October 16, 2017 16:38 - CONCLUSION: No acute cardiopulmonary disease identified. Steve Marcelo MD Abdomen/Pelvis CT 10/16/17 0000 Signed Impressions: Service Date/Time: Monday, October 16, 2017 22:03 - CONCLUSION: 1. Nonspecific diffuse wall thickening the ascending colon suggesting colitis. No free air or free fluid. No bowel dilatation. 2. Moderate to severe bilateral hip osteoarthritic findings. 3. Pars interarticularis defects of L5. Steve Marcelo MD Assessment and Plan Assessment and Plan MTX toxicity, doubt herpes (unusual presentation and smx duration) UTI Colitis, abx associated dc cipro - I would not use FQ in a pt with possible C.diff r/o C.diff cahnge flagyl to po start Bactrim cont acyclovir chk PCR on gen and oral lesions. Dc acyclovir if PCR negative Elizabeth Lomeli MD Oct 17, 2017 17:38
[2017-10-17] MEDS: ONDANSETRON HCL 4 MG/2 ML VIAL IVP PRN ×2 (18:47→23:45)
[2017-10-17 20:00] VITALS: BP 103/62; PULSE 71; RESP 20; TEMP 98.5; O2SAT 100
[2017-10-17] MEDS: ACETAMINOPHEN 325 MG TAB PO PRN (20:54)
[2017-10-17] MEDS: SULFAMETHOXAZOLE-TRIMETHOPRIM DS 800-160 MG TAB PO SCH (20:55)
[2017-10-17] MEDS ORDERED: CIPROFLOXACIN 400 MG PREMIX 200 ML IV SCH (21:00)
[2017-10-17] MEDS: metroNIDAZOLE 500 MG TAB PO SCH (21:00)
[2017-10-18] VITALS (7 sets, daily range): BP systolic 100–125; BP diastolic 65–75; PULSE 67–93; RESP 16–22; TEMP 97.6–98.9; O2SAT 99–100
[2017-10-18] MEDS: LEUCOVORIN IV SCH ×5 (02:50→20:17)
[2017-10-18] MEDS: 1/2 NS + KCL 20 MEQ INJ 1,000 ML IV SCH ×2 (04:55→15:13)
[2017-10-18 05:04] LABS: HEMATOCRIT 25.7 % (35.0-46.0); MEAN CORPUSCULAR HEMOGLOBIN 29.4 PG (27.0-34.0); MEAN PLATELET VOLUME 8.7 FL (7.0-11.0); PLATELET COUNT 43 TH/MM3 (150-450); RED BLOOD COUNT 3.06 MIL/MM3 (4.00-5.30); RED CELL DISTRIBUTION WIDTH 12.3 % (11.6-17.2); WHITE BLOOD COUNT 2.3 TH/MM3 (4.0-11.0)
[2017-10-18 05:37] LABS: ALBUMIN 2.8 GM/DL (3.4-5.0); BICARBONATE 21.1 MEQ/L (21.0-32.0); CALCIUM 7.5 MG/DL (8.5-10.1); CREATININE 0.36 MG/DL (0.50-1.00); DIRECT BILIRUBIN ADULT 0.1 MG/DL (0.0-0.2); INDIRECT BILIRUBIN 0.4 MG/DL (0.0-0.8); MAGNESIUM 1.1 MG/DL (1.5-2.5); TOTAL BILIRUBIN ADULT 0.5 MG/DL (0.2-1.0); TOTAL PROTEIN 6.1 GM/DL (6.4-8.2)
[2017-10-18] MEDS: metroNIDAZOLE 500 MG TAB PO SCH (05:49)
[2017-10-18] MEDS: ACYCLOVIR 200 MG CAP PO SCH ×5 (05:49→22:00)
[2017-10-18] MEDS: ACETAMINOPHEN 325 MG TAB PO PRN ×2 (05:55→20:28)
[2017-10-18] MEDS ORDERED: POTASSIUM CHLORIDE 25 MEQ EFFERVESCENT TAB PO ONE ×2 (06:15→11:00)
[2017-10-18] MEDS: POTASSIUM CHLOR 20 MEQ PREMIX 100 ML IV SCH ×2 (06:45→10:02)
[2017-10-18] MEDS: ONDANSETRON HCL 4 MG/2 ML VIAL IVP PRN ×3 (07:03→20:16)
[2017-10-18] MEDS: INSULIN ASPART SUPPLEMENTAL SCALE SQ SCH ×4 (08:00→21:00)
[2017-10-18] MEDS: DOCUSATE SODIUM 50 MG/SENNA 8.6 MG TAB PO SCH (09:00)
[2017-10-18] MEDS: SODIUM CHLORIDE 0.9% FLUSH 10 ML FLUSH IV FLUSH SCH ×2 (09:00→20:17)
[2017-10-18] MEDS: SULFAMETHOXAZOLE-TRIMETHOPRIM DS 800-160 MG TAB PO SCH ×2 (09:00→20:16)
--- NOTE | 2017-10-18 09:08 | PD.ONC.PN ---
Subjective Subjective Remarks nausea and with worsening diarrhea. Objective Data Date Time Temp Pulse Resp B/P (MAP) Pulse Ox O2 Delivery O2 Flow Rate FiO2 10/18/17 04:00 98.1 69 16 100/72 (81) 100 10/18/17 00:00 97.6 73 22 101/68 (79) 100 10/17/17 20:00 98.5 71 20 103/62 (76) 100 10/17/17 16:00 97.9 64 16 114/56 (75) 100 10/17/17 12:00 97.7 66 16 93/55 (68) 96 10/18/17 10/18/17 10/18/17 07:00 15:00 23:00 Intake Total 1240 ml Output Total 550 ml Balance 690 ml Result Diagram: 10/18/17 0442 10/18/17 044 Laboratory Results Laboratory Tests Test 10/18/17 00:33 10/18/17 00:40 10/18/17 02:50 10/18/17 04:42 Stool C. difficile Toxin (PCR) NEGATIVE Stl C. difficile Toxin Epiderm 027 PRESUMPTIVE NEGATIVE White Blood Count 2.3 TH/MM3 Red Blood Count 3.06 MIL/MM3 Hemoglobin 9.0 GM/DL Hematocrit 25.7 % Mean Corpuscular Volume 84.0 FL Mean Corpuscular Hemoglobin 29.4 PG Mean Corpuscular Hemoglobin Concent 35.0 % Red Cell Distribution Width 12.3 % Platelet Count 43 TH/MM3 Mean Platelet Volume 8.7 FL Blood Urea Nitrogen 11 MG/DL Creatinine 0.36 MG/DL Random Glucose 111 MG/DL Total Protein 6.1 GM/DL Albumin 2.8 GM/DL Calcium Level 7.5 MG/DL Magnesium Level 1.1 MG/DL Alkaline Phosphatase 97 U/L Aspartate Amino Transf (AST/SGOT) 106 U/L Alanine Aminotransferase (ALT/SGPT) 130 U/L Total Bilirubin 0.5 MG/DL Direct Bilirubin 0.1 MG/DL Sodium Level 142 MEQ/L Potassium Level 2.6 MEQ/L Chloride Level 111 MEQ/L Carbon Dioxide Level 21.1 MEQ/L Anion Gap 10 MEQ/L Estimat Glomerular Filtration Rate 190 ML/MIN Indirect Bilirubin 0.4 MG/DL Culture Results Microbiology Date/Time Source Procedure Growth Status 10/16/17 12:35 Blood Peripheral Aerobic Blood Culture - Preliminary NO GROWTH IN 1 DAY Resulted 10/16/17 12:35 Blood Peripheral Anaerobic Blood Culture - Preliminary NO GROWTH IN 1 DAY Resulted 10/16/17 12:30 Blood Peripheral Aerobic Blood Culture - Preliminary NO GROWTH IN 1 DAY Resulted 10/16/17 12:30 Blood Peripheral Anaerobic Blood Culture - Preliminary NO GROWTH IN 1 DAY Resulted 10/16/17 13:15 Urine Catheterized Urine Urine Culture - Final 50-100,000 CFU/ML MIXED LICO... Complete 10/16/17 12:30 Wound Groin Gram Stain - Final Complete 10/16/17 12:30 Wound Culture - Final Escherichia Coli Staphylococcus Aureus Group B Beta Strep Complete Administered Medications Medications (Trade) Dose Ordered Sig/Lionel Route PRN Reason Start Time Stop Time Status Last Admin Dose Admin Insulin Aspart (NovoLOG SUPPLEMENTAL SCALE) 1 ACHS SLIDING SCALE SQ 10/16/17 17:00 10/17/17 08:59 Sodium Chloride (NS Flush) 2 ml UNSCH PRN IV FLUSH FLUSH AFTER USING IV ACCESS 10/16/17 15:30 10/18/17 07:03 Sodium Chloride (NS Flush) 2 ml BID IV FLUSH 10/16/17 21:00 10/17/17 20:55 Ondansetron HCl (Zofran Inj) 4 mg Q6H PRN IVP NAUSEA OR VOMITING 10/16/17 15:30 10/18/17 07:03 Acetaminophen (Tylenol) 650 mg Q6H PRN PO PAIN SCALE 1 TO 2 10/16/17 15:30 10/18/17 05:55 Oxycodone HCl (Roxicodone) 5 mg Q4H PRN PO PAIN SCALE 3 TO 5 10/16/17 15:30 10/17/17 10:33 Senna/Docusate Sodium (Leeann-Colace) 1 tab BID PO 10/16/17 21:00 10/17/17 20:54 Acyclovir (Zovirax) 200 mg 5 TIMES A DAY PO 10/17/17 11:30 10/18/17 05:49 Potassium Chloride/Sodium Chloride 1,000 ml @ 100 mls/hr Q10H IV 10/17/17 15:00 10/18/17 04:55 Trimethoprim/ Sulfamethoxazole (Bactrim Ds 800-160 Mg) 1 tab Q12HR PO 10/17/17 21:00 10/24/17 20:59 10/17/17 20:55 Metronidazole (Flagyl) 500 mg Q8HR PO 10/17/17 22:00 10/18/17 05:49 Potassium Chloride 100 ml @ 50 mls/hr Q2H IV 10/18/17 07:00 10/18/17 10:59 10/18/17 06:45 Objective Remarks GENERAL: Well-nourished, well-developed patient. SKIN: Warm and dry. HEAD: Normocephalic. EYES: No scleral icterus. No injection or drainage. NECK: Supple, trachea midline. No JVD or lymphadenopathy. still with same sores on lips LYMPHATIC: No adenopathy. CARDIOVASCULAR: Regular rate and rhythm without murmurs. RESPIRATORY: Breath sounds equal bilaterally. No accessory muscle use. GASTROINTESTINAL: Abdomen soft, non-tender, nondistended. EXTREMITIES: No cyanosis, or edema. MUSCULOSKELETAL: Adequate muscle tone. NEUROLOGICAL: No obvious focal deficit. Awake, alert, and oriented x3. PSYCHIATRIC: Appropriate mood and affect; insight and judgment normal. Assessment/Plan Assessment 1: methotrexate toxicity: It will require several more days to resolve. C dif is negative and the diarrhea is due to the MTX. Would stop flagyl unless it is is necessary as it may be contributing to diarrhea and provide only what is necessary in terms of antibiotics. K remains low and it will be necessary to continue iv fluids and K supplementation. I suspcect that the MTX is already gone and what we are seeing is what took place during the week she took one pill daily. Plan Aquiles Morley MD Oct 18, 2017 09:08
--- NOTE | 2017-10-18 10:37 | HHI.PR ---
Subjective Remarks Follow-up methotrexate toxicity/colitis/hypokalemia 10/18/17-patient seen and examined, complains of abdominal, oral, vaginal pain. Platelet count trending down. currently afebrile. No diarrheal episode. Daughter by the bedside and translated. Case discussed with Dr. Morley, oncology Objective Vitals Vital Signs Date Time Temp Pulse Resp B/P (MAP) Pulse Ox O2 Delivery O2 Flow Rate FiO2 10/18/17 04:00 98.1 69 16 100/72 (81) 100 10/18/17 00:00 97.6 73 22 101/68 (79) 100 10/17/17 20:00 98.5 71 20 103/62 (76) 100 10/17/17 16:00 97.9 64 16 114/56 (75) 100 10/17/17 12:00 97.7 66 16 93/55 (68) 96 I/O 10/17/17 10/17/17 10/17/17 10/18/17 10/18/17 10/18/17 07:00 15:00 23:00 07:00 15:00 23:00 Intake Total 1047 ml 625 ml 700 ml 1240 ml 98.8 ml Output Total 550 ml Balance 1047 ml 625 ml 700 ml 690 ml 98.8 ml Intake Oral 680 ml 700 ml 240 ml IV Total 625 ml 1000 ml 98.8 ml Platelets 347 ml Blood Product IV Normal Saline Flush 20 ml Output Urine Total 500 ml Emesis 50 ml # Voids 5 4 # Bowel Movements 7 Result Diagram: 10/18/17 0442 10/18/17 0442 Imaging Last Impressions Chest X-Ray 10/16/17 0000 Signed Impressions: Service Date/Time: Monday, October 16, 2017 16:38 - CONCLUSION: No acute cardiopulmonary disease identified. Steve Marcelo MD Abdomen/Pelvis CT 10/16/17 0000 Signed Impressions: Service Date/Time: Monday, October 16, 2017 22:03 - CONCLUSION: 1. Nonspecific diffuse wall thickening the ascending colon suggesting colitis. No free air or free fluid. No bowel dilatation. 2. Moderate to severe bilateral hip osteoarthritic findings. 3. Pars interarticularis defects of L5. Steve Marcelo MD Objective Remarks GENERAL: Mild distress SKIN: Warm and dry. HEAD: Normocephalic. EYES: No scleral icterus. No injection or drainage. Mouth: Ulcers NECK: Supple, trachea midline. No JVD or lymphadenopathy. CARDIOVASCULAR: Regular rate and rhythm without murmurs, gallops, or rubs. RESPIRATORY: Breath sounds equal bilaterally. No accessory muscle use. GASTROINTESTINAL: Abdomen soft, mildly tender, nondistended. MUSCULOSKELETAL: No cyanosis, or edema. : Deferred BACK: Nontender without obvious deformity. No CVA tenderness. A/P Problem List: (1) Methotrexate toxicity ICD Code: T45.1X1A - Poisoning by antineoplastic and immunosuppressive drugs, accidental (unintentional), initial encounter (2) Colitis ICD Code: K52.9 - Noninfective gastroenteritis and colitis, unspecified (3) Thrombocytopenia ICD Code: D69.6 - Thrombocytopenia, unspecified Status: Acute (4) Rheumatoid arthritis ICD Code: M06.9 - Rheumatoid arthritis, unspecified Status: Chronic Assessment and Plan 52-year-old female with Methotrexate toxicity Mucositis Leukocytosis Appreciate input from hematology Continue with aggressive IV fluid resuscitation Currently on Leucovorin Sepsis rule out Urinary tract infection Colitis Rule out herpes as PCR pending and if negative discontinue acyclovir Currently on Flagyl however C. difficile PCR negative therefore will discontinue Flagyl Continue Bactrim DS Appreciate input from infectious disease specialist Diabetes Continue to hold metformin Currently on sliding scale insulin with fingerstick blood glucose monitoring Shortness of breath Likely secondary to anemia. CXR unremarkable. - Oxygen and nebs as needed. - Physical therapy evaluation. Hypokalemia Replace electrolyte and monitor PPx: Trace Crowley MD Oct 18, 2017 10:37
--- NOTE | 2017-10-18 17:26 | HHI.IDPN ---
Subjective Subjective Remarks oral sores somewhat better, genital about the same noted new lesions on the neck, R side afebrile c.diff negative Antibiotics acyclovir flagyl - stopped TS Allergies: Coded Allergies: penicillin G (Unverified Allergy, Intermediate, Rash, 10/16/17) vancomycin (Verified Allergy, Intermediate, Hives, 10/16/17) Objective . Vital Signs Date Time Temp Pulse Resp B/P (MAP) Pulse Ox O2 Delivery O2 Flow Rate FiO2 10/18/17 15:32 98.9 82 18 101/69 (80) 10/18/17 12:00 98.9 70 16 116/74 (88) 100 10/18/17 08:41 97.7 67 18 121/65 (83) 100 10/18/17 04:00 98.1 69 16 100/72 (81) 100 10/18/17 00:00 97.6 73 22 101/68 (79) 100 10/17/17 20:00 98.5 71 20 103/62 (76) 100 10/18/17 10/18/17 10/19/17 15:00 23:00 07:00 Intake Total 98.8 ml 2086 ml Balance 98.8 ml 2086 ml IV Total 98.8 ml 2086 ml . Laboratory Tests Test 10/17/17 07:32 10/18/17 04:42 White Blood Count 1.8 TH/MM3 2.3 TH/MM3 Red Blood Count 3.07 MIL/MM3 3.06 MIL/MM3 Hemoglobin 9.2 GM/DL 9.0 GM/DL Hematocrit 25.3 % 25.7 % Mean Corpuscular Volume 82.4 FL 84.0 FL Mean Corpuscular Hemoglobin 29.9 PG 29.4 PG Mean Corpuscular Hemoglobin Concent 36.3 % 35.0 % Red Cell Distribution Width 12.3 % 12.3 % Platelet Count 60 TH/MM3 43 TH/MM3 Mean Platelet Volume 8.5 FL 8.7 FL Neutrophils (%) (Auto) 74.8 % Lymphocytes (%) (Auto) 24.9 % Monocytes (%) (Auto) 0.2 % Eosinophils (%) (Auto) 0.1 % Basophils (%) (Auto) 0.0 % Neutrophils # (Auto) 1.3 TH/MM3 Lymphocytes # (Auto) 0.4 TH/MM3 Monocytes # (Auto) 0.0 TH/MM3 Eosinophils # (Auto) 0.0 TH/MM3 Basophils # (Auto) 0.0 TH/MM3 CBC Comment AUTO DIFF Differential Total Cells Counted 100 Neutrophils % (Manual) 76 % Lymphocytes % 24 % Neutrophils # (Manual) 1.4 TH/MM3 Differential Comment FINAL DIFF MANUAL Platelet Estimate LOW Platelet Morphology Comment NORMAL Red Cell Morphology Comment NORMAL Laboratory Tests Test 10/17/17 07:32 10/18/17 04:42 Blood Urea Nitrogen 13 MG/DL 11 MG/DL Creatinine 0.38 MG/DL 0.36 MG/DL Random Glucose 183 MG/DL 111 MG/DL Total Protein 6.7 GM/DL 6.1 GM/DL Albumin 3.0 GM/DL 2.8 GM/DL Calcium Level 7.7 MG/DL 7.5 MG/DL Alkaline Phosphatase 101 U/L 97 U/L Aspartate Amino Transf (AST/SGOT) 101 U/L 106 U/L Alanine Aminotransferase (ALT/SGPT) 131 U/L 130 U/L Total Bilirubin 0.6 MG/DL 0.5 MG/DL Sodium Level 140 MEQ/L 142 MEQ/L Potassium Level 2.6 MEQ/L 2.6 MEQ/L Chloride Level 108 MEQ/L 111 MEQ/L Carbon Dioxide Level 21.5 MEQ/L 21.1 MEQ/L Anion Gap 11 MEQ/L 10 MEQ/L Estimat Glomerular Filtration Rate 179 ML/MIN 190 ML/MIN Magnesium Level 1.1 MG/DL Direct Bilirubin 0.1 MG/DL Indirect Bilirubin 0.4 MG/DL Microbiology Date/Time Source Procedure Growth Status 10/16/17 12:35 Blood Peripheral Aerobic Blood Culture - Preliminary NO GROWTH IN 2 DAYS Resulted 10/16/17 12:35 Blood Peripheral Anaerobic Blood Culture - Preliminary NO GROWTH IN 2 DAYS Resulted 10/16/17 12:30 Blood Peripheral Aerobic Blood Culture - Preliminary NO GROWTH IN 2 DAYS Resulted 10/16/17 12:30 Blood Peripheral Anaerobic Blood Culture - Preliminary NO GROWTH IN 2 DAYS Resulted 10/16/17 13:15 Urine Catheterized Urine Urine Culture - Final 50-100,000 CFU/ML MIXED LICO... Complete 10/16/17 12:30 Wound Groin Gram Stain - Final Complete 10/16/17 12:30 Wound Culture - Final Escherichia Coli Staphylococcus Aureus Group B Beta Strep Complete Imaging Last Impressions Chest X-Ray 10/16/17 0000 Signed Impressions: Service Date/Time: Monday, October 16, 2017 16:38 - CONCLUSION: No acute cardiopulmonary disease identified. Steve Marcelo MD Abdomen/Pelvis CT 10/16/17 0000 Signed Impressions: Service Date/Time: Monday, October 16, 2017 22:03 - CONCLUSION: 1. Nonspecific diffuse wall thickening the ascending colon suggesting colitis. No free air or free fluid. No bowel dilatation. 2. Moderate to severe bilateral hip osteoarthritic findings. 3. Pars interarticularis defects of L5. Steve Marcelo MD Physical Exam CONSTITUTIONAL/GENERAL: This is an adequately nourished patient, in no apparent distress. TUBES/LINES/DRAINS: SKIN: No jaundice, rashes, or lesions. Skin temperature appropriate. Not diaphoretic. Neck clean based shallow large painful ulcerations on the back and R side of the neck ENT: Hearing grossly normal. Nose without bleeding or purulent drainage. Prominent oral ulcerations with dark bloody crust CARDIOVASCULAR: Regular rate and rhythm without murmurs, gallops, or rubs. No JVD. Peripheral pulses symmetric. RESPIRATORY/CHEST: Symmetric, unlabored respirations. Clear to auscultation. Breath sounds equal bilaterally. No wheezes, rales, or rhonchi. GASTROINTESTINAL: Abdomen soft, mildly tender to palpation LLQ , nondistended. No hepato-splenomegaly, or palpable masses. No guarding. Bowel sounds present. GENITOURINARY: Without palpable bladder distension. Pt has multiple very painful ulcerations of inguinal and pubic areas, partial thickness, shallow, claen based and large - up to 1 cm, they r not groupped essentially unchanged NEUROLOGICAL: Awake and alert. Motor and sensory grossly within normal limits. Follows commands. clear speech. Moves all extremities. PSYCHIATRIC:: calm, cooperative Assessment & Plan Remarks MTX toxicity, doubt herpes (unusual presentation and smx duration) - clinical presentation is very unusual for herpes, however secondary reactivation can not be totally excluded UTI Colitis, abx associated dc cipro - dc flagyl to po cont Bactrim x 7 days chk PCR on gen and oral lesions. Dc acyclovir if PCR negative dw Dr Douglas will sign off reconsult if any new questions Elizabeth Lomeli MD Oct 18, 2017 17:26
[2017-10-19] MEDS ORDERED: PROCHLORPERAZINE INJ 10 MG/2 ML VIAL IV PUSH ONE
[2017-10-19] MEDS: LEUCOVORIN IV SCH ×2 (04:00→09:43)
[2017-10-19 04:04] VITALS: BP 105/71; PULSE 74; TEMP 98.7; O2SAT 100
[2017-10-19] MEDS: ONDANSETRON HCL 4 MG/2 ML VIAL IVP PRN (05:32)
[2017-10-19] MEDS: ACYCLOVIR 200 MG CAP PO SCH ×5 (05:32→22:06)
[2017-10-19 06:39] LABS: HEMATOCRIT 27.2 % (35.0-46.0); HEMOGLOBIN 9.6 GM/DL (11.6-15.3); MEAN CELL VOLUME 83.1 FL (80.0-100.0); MEAN CORPUSCULAR HEMOGLOBIN 29.2 PG (27.0-34.0); MEAN CORPUSCULAR HGB CONC 35.1 % (32.0-36.0); MEAN PLATELET VOLUME 8.7 FL (7.0-11.0); PLATELET COUNT 41 TH/MM3 (150-450); RED BLOOD COUNT 3.28 MIL/MM3 (4.00-5.30); RED CELL DISTRIBUTION WIDTH 12.6 % (11.6-17.2); WHITE BLOOD COUNT 2.8 TH/MM3 (4.0-11.0)
[2017-10-19 06:53] LABS: ALBUMIN 2.9 GM/DL (3.4-5.0); ALT (GPT) 108 U/L (10-53); AST (GOT) 66 U/L (15-37); BICARBONATE 20.2 MEQ/L (21.0-32.0); BLOOD UREA NITROGEN 4 MG/DL (7-18); CALCIUM 7.8 MG/DL (8.5-10.1); CHLORIDE 112 MEQ/L (98-107); CREATININE 0.42 MG/DL (0.50-1.00); GLOMERULAR FILTRATION RATE 159 ML/MIN (>89); GLUCOSE,RANDOM 100 MG/DL (74-106); SODIUM (NA) 141 MEQ/L (136-145)
[2017-10-19 06:56] LABS: ALKALINE PHOSPHATASE 99 U/L (45-117); TOTAL BILIRUBIN ADULT 0.4 MG/DL (0.2-1.0); TOTAL PROTEIN 6.2 GM/DL (6.4-8.2)
[2017-10-19] MEDS: 1/2 NS + KCL 20 MEQ INJ 1,000 ML IV SCH ×3 (07:00→23:59)
[2017-10-19 07:43] LABS: LYMPHOCYTES 49 % (9-44); NEUTROPHIL # MANUAL DIFF 0.5 TH/MM3 (1.8-7.7); POLYS (SEG NEUTROPHILS) 18 % (16-70)
[2017-10-19 07:45] LABS: OVALOCYTES 1+ (NORMAL)
[2017-10-19] MEDS: INSULIN ASPART SUPPLEMENTAL SCALE SQ SCH ×4 (08:00→20:19)
[2017-10-19 08:45] VITALS: BP 100/64; PULSE 64; RESP 16; TEMP 98; O2SAT 96
[2017-10-19] MEDS: PROCHLORPERAZINE MALEATE 10 MG TAB PO PRN ×2 (09:41→18:11)
[2017-10-19] MEDS: SULFAMETHOXAZOLE-TRIMETHOPRIM DS 800-160 MG TAB PO SCH ×2 (09:42→20:13)
[2017-10-19] MEDS: SODIUM CHLORIDE 0.9% FLUSH 10 ML FLUSH IV FLUSH SCH ×2 (09:43→20:17)
--- NOTE | 2017-10-19 09:53 | HHI.PR ---
Subjective Remarks Follow-up methotrexate toxicity/colitis/hypokalemia 10/18/17-patient seen and examined, complains of abdominal, oral, vaginal pain. Platelet count trending down. currently afebrile. No diarrheal episode. Daughter by the bedside and translated. Case discussed with Dr. Morley, oncology 10/19/17-patient seen and examined, reports improvement of nausea and denies any significant vaginal and oral pain. Platelet trending up. Currently afebrile. Daughter by the bedside Objective Vitals Vital Signs Date Time Temp Pulse Resp B/P (MAP) Pulse Ox O2 Delivery O2 Flow Rate FiO2 10/19/17 08:45 98.0 64 16 100/64 (76) 96 10/19/17 04:04 98.7 74 105/71 (82) 100 10/18/17 23:30 98.6 68 18 108/75 (86) 100 10/18/17 20:00 98.5 93 18 125/74 (91) 99 10/18/17 15:32 98.9 82 18 101/69 (80) 10/18/17 12:00 98.9 70 16 116/74 (88) 100 I/O 10/18/17 10/18/17 10/18/17 10/19/17 10/19/17 10/19/17 07:00 15:00 23:00 07:00 15:00 23:00 Intake Total 1240 ml 98.8 ml 2087 ml 1200 ml Output Total 550 ml 700 ml 1100 ml Balance 690 ml 98.8 ml 1387 ml 100 ml Intake Oral 240 ml IV Total 1000 ml 98.8 ml 2087 ml 1200 ml Output Urine Total 500 ml 700 ml 1100 ml Emesis 50 ml # Bowel Movements 2 2 Result Diagram: 10/19/17 0604 10/19/17 0604 Imaging Last Impressions Chest X-Ray 10/16/17 0000 Signed Impressions: Service Date/Time: Monday, October 16, 2017 16:38 - CONCLUSION: No acute cardiopulmonary disease identified. Steve Marcelo MD Abdomen/Pelvis CT 10/16/17 0000 Signed Impressions: Service Date/Time: Monday, October 16, 2017 22:03 - CONCLUSION: 1. Nonspecific diffuse wall thickening the ascending colon suggesting colitis. No free air or free fluid. No bowel dilatation. 2. Moderate to severe bilateral hip osteoarthritic findings. 3. Pars interarticularis defects of L5. Steve Marcelo MD Objective Remarks GENERAL: Mild distress SKIN: Warm and dry. HEAD: Normocephalic. EYES: No scleral icterus. No injection or drainage. Mouth: Ulcers NECK: Supple, trachea midline. No JVD or lymphadenopathy. CARDIOVASCULAR: Regular rate and rhythm without murmurs, gallops, or rubs. RESPIRATORY: Breath sounds equal bilaterally. No accessory muscle use. GASTROINTESTINAL: Abdomen soft, mildly tender, nondistended. MUSCULOSKELETAL: No cyanosis, or edema. : Deferred today BACK: Nontender without obvious deformity. No CVA tenderness. A/P Problem List: (1) Methotrexate toxicity ICD Code: T45.1X1A - Poisoning by antineoplastic and immunosuppressive drugs, accidental (unintentional), initial encounter (2) Colitis ICD Code: K52.9 - Noninfective gastroenteritis and colitis, unspecified (3) Thrombocytopenia ICD Code: D69.6 - Thrombocytopenia, unspecified Status: Acute (4) Rheumatoid arthritis ICD Code: M06.9 - Rheumatoid arthritis, unspecified Status: Chronic Assessment and Plan 52-year-old female with Methotrexate toxicity Mucositis Leukocytosis Thrombocytopenia Appreciate input from hematology Continue with aggressive IV fluid resuscitation Currently on Leucovorin, Neupogen Sepsis rule out Urinary tract infection Colitis Rule out herpes as PCR pending and if negative discontinue acyclovir s/p Flagyl Continue Bactrim DS until 10/24/17 Appreciate input from infectious disease specialist Diabetes Continue to hold metformin Currently on sliding scale insulin with fingerstick blood glucose monitoring Shortness of breath Likely secondary to anemia. CXR unremarkable. - Oxygen and nebs as needed. - Physical therapy evaluation. Hypokalemia Replace electrolyte and monitor PPx: Trace Crowley MD Oct 19, 2017 09:53
[2017-10-19] MEDS ORDERED: POTASSIUM CHLORIDE 25 MEQ EFFERVESCENT TAB PO ONE (10:00)
[2017-10-19 10:28] LABS: HEPATITIS A AB IGM NEGATIVE (NEGATIVE); HEPATITIS B CORE AB IGM NEGATIVE (NEGATIVE); HEPATITIS B SURFACE ANTIGEN NEGATIVE (NEGATIVE); HEPATITIS C AB IgG NEGATIVE (NEGATIVE)
[2017-10-19] MEDS ORDERED: LIDOCAINE VISCOUS 2% SOLN 15 ML UDC SWISH-SWAL PRN (11:30)
--- NOTE | 2017-10-19 11:37 | PD.ONC.PN ---
Subjective Subjective Remarks Afebrile overnight. Patient resting in bed in nad. Reports that the calamine lotion was causing pain in her open cinda areas. Still having some pain in lips. Objective Data Date Time Temp Pulse Resp B/P (MAP) Pulse Ox O2 Delivery O2 Flow Rate FiO2 10/19/17 08:45 98.0 64 16 100/64 (76) 96 10/19/17 04:04 98.7 74 105/71 (82) 100 10/18/17 23:30 98.6 68 18 108/75 (86) 100 10/18/17 20:00 98.5 93 18 125/74 (91) 99 10/18/17 15:32 98.9 82 18 101/69 (80) 10/18/17 12:00 98.9 70 16 116/74 (88) 100 10/19/17 10/19/17 10/19/17 07:00 15:00 23:00 Intake Total 1200 ml Output Total 1100 ml Balance 100 ml Result Diagram: 10/19/17 0604 10/19/17 0604 Laboratory Results Laboratory Tests Test 10/19/17 06:04 White Blood Count 2.8 TH/MM3 Red Blood Count 3.28 MIL/MM3 Hemoglobin 9.6 GM/DL Hematocrit 27.2 % Mean Corpuscular Volume 83.1 FL Mean Corpuscular Hemoglobin 29.2 PG Mean Corpuscular Hemoglobin Concent 35.1 % Red Cell Distribution Width 12.6 % Platelet Count 41 TH/MM3 Mean Platelet Volume 8.7 FL CBC Comment AUTO DIFF Differential Total Cells Counted 100 Neutrophils % (Manual) 18 % Lymphocytes % 49 % Eosinophils % 33 % Neutrophils # (Manual) 0.5 TH/MM3 Differential Comment FINAL DIFF MANUAL Platelet Estimate LOW Platelet Morphology Comment NORMAL Ovalocytes 1+ Blood Urea Nitrogen 4 MG/DL Creatinine 0.42 MG/DL Random Glucose 100 MG/DL Total Protein 6.2 GM/DL Albumin 2.9 GM/DL Calcium Level 7.8 MG/DL Alkaline Phosphatase 99 U/L Aspartate Amino Transf (AST/SGOT) 66 U/L Alanine Aminotransferase (ALT/SGPT) 108 U/L Total Bilirubin 0.4 MG/DL Sodium Level 141 MEQ/L Potassium Level 3.3 MEQ/L Chloride Level 112 MEQ/L Carbon Dioxide Level 20.2 MEQ/L Anion Gap 9 MEQ/L Estimat Glomerular Filtration Rate 159 ML/MIN Culture Results Microbiology Date/Time Source Procedure Growth Status 10/16/17 12:35 Blood Peripheral Aerobic Blood Culture - Preliminary NO GROWTH IN 3 DAYS Resulted 10/16/17 12:35 Blood Peripheral Anaerobic Blood Culture - Preliminary NO GROWTH IN 3 DAYS Resulted 10/16/17 12:30 Blood Peripheral Aerobic Blood Culture - Preliminary NO GROWTH IN 3 DAYS Resulted 10/16/17 12:30 Blood Peripheral Anaerobic Blood Culture - Preliminary NO GROWTH IN 3 DAYS Resulted 10/16/17 13:15 Urine Catheterized Urine Urine Culture - Final 50-100,000 CFU/ML MIXED LICO... Complete 10/16/17 12:30 Wound Groin Gram Stain - Final Complete 10/16/17 12:30 Wound Culture - Final Escherichia Coli Staphylococcus Aureus Group B Beta Strep Complete Administered Medications Medications (Trade) Dose Ordered Sig/Lionel Route PRN Reason Start Time Stop Time Status Last Admin Dose Admin Insulin Aspart (NovoLOG SUPPLEMENTAL SCALE) 1 ACHS SLIDING SCALE SQ 10/16/17 17:00 10/17/17 08:59 Sodium Chloride (NS Flush) 2 ml UNSCH PRN IV FLUSH FLUSH AFTER USING IV ACCESS 10/16/17 15:30 10/18/17 07:03 Sodium Chloride (NS Flush) 2 ml BID IV FLUSH 10/16/17 21:00 10/19/17 09:43 Ondansetron HCl (Zofran Inj) 4 mg Q6H PRN IVP NAUSEA OR VOMITING 10/16/17 15:30 10/19/17 05:32 Acetaminophen (Tylenol) 650 mg Q6H PRN PO PAIN SCALE 1 TO 2 10/16/17 15:30 10/18/17 20:28 Oxycodone HCl (Roxicodone) 5 mg Q4H PRN PO PAIN SCALE 3 TO 5 10/16/17 15:30 10/17/17 10:33 Acyclovir (Zovirax) 200 mg 5 TIMES A DAY PO 10/17/17 11:30 10/19/17 09:41 Potassium Chloride/Sodium Chloride 1,000 ml @ 100 mls/hr Q10H IV 10/17/17 15:00 10/19/17 07:00 Trimethoprim/ Sulfamethoxazole (Bactrim Ds 800-160 Mg) 1 tab Q12HR PO 10/17/17 21:00 10/24/17 20:59 10/19/17 09:42 Prochlorperazine Maleate (Compazine) 10 mg Q6H PRN PO NAUSEA 10/18/17 09:00 10/19/17 09:41 Objective Remarks GENERAL: Middle aged female lying in bed in nad. SKIN: Warm and dry. multiple open areas in vaginal area. no signs of infection. HEAD: Normocephalic. lips with scabbing. a few small ulcers seen in mouth. EYES: No injection or drainage. NECK: Supple, trachea midline. CARDIOVASCULAR: Regular rate and rhythm RESPIRATORY: Breath sounds equal bilaterally. No accessory muscle use. GASTROINTESTINAL: Abdomen soft, non-tender, nondistended. EXTREMITIES: No cyanosis NEUROLOGICAL: awake and alert, moving extremities. Assessment/Plan Assessment 52y/o female with methotrexate toxicity. Plan 1. methotrexate toxicity: will stop leucovorin as 10/17 methotrexate level was less than 0.05 and I expect 10/18 and todays levels will be even lower as she has had leucovorin for several days now 2. pancytopenia: d/t methotrexate toxicity. expect her counts will start to recover. will start Neupogen to help with WBC recovery. orders placed to notify physician and obtain blood cultures for any fever greater than 100.4 3. wound care: will ask the nurses to start doing twice daily wound care with zinc oxide. the calamine lotion was causing pain. will try the zinc oxide with gentle wound cleansing with saline to the area and non-stick bandages. will also ask nurses to premedicate patient with one of her available pain medications (oxycodone or morphine) prior to the dressing changes. Attending Statement The exam, history, and the medical decision-making described in the above note were completed with the assistance of the mid-level provider. I reviewed and agree with the findings presented. I attest that I had a [id number] encounter with the patient on the same day, and personally performed and documented my assessment and findings in the medical record. not any better today but it will take several more days before the effects of the MTX resolve and then recovery will be rapid. Will add Protonix as esophagus is probably raw and she is complaining of reflux. will begin neupogen to increase wbc. Kinsey Hargrove Oct 19, 2017 11:37 Aquiles Morley MD Oct 19, 2017 19:28
[2017-10-19 12:30] VITALS: BP 103/59; PULSE 98; RESP 18; TEMP 97.4; O2SAT 100
[2017-10-19] MEDS: FILGRASTIM INJ 300 MCG in DEXTROSE 5% IN WATER INJ 24 ML IV SCH ×2 (15:26)
[2017-10-19 16:00] VITALS: BP 100/60; PULSE 74; RESP 18; TEMP 97.8; O2SAT 99
[2017-10-19] MEDS: PANTOPRAZOLE SOD 40 MG DELAYED RELEASE TAB PO SCH (20:13)
[2017-10-19 20:20] VITALS: BP 98/60; PULSE 88; RESP 16; TEMP 98.3; O2SAT 100
[2017-10-20 00:09] VITALS: BP 100/70; PULSE 96; RESP 18; TEMP 98.2; O2SAT 100
[2017-10-20 04:22] VITALS: BP 96/60; PULSE 91; RESP 16; TEMP 98.8; O2SAT 99
[2017-10-20] MEDS: ACYCLOVIR 200 MG CAP PO SCH ×2 (06:20→09:56)
[2017-10-20] MEDS: INSULIN ASPART SUPPLEMENTAL SCALE SQ SCH ×4 (08:00→21:00)
[2017-10-20 09:00] VITALS: BP 83/49; PULSE 83; RESP 18; TEMP 97.3
[2017-10-20] MEDS: PANTOPRAZOLE SOD 40 MG DELAYED RELEASE TAB PO SCH (09:00)
[2017-10-20 09:32] LABS: AUTOMATED NEUTROPHIL # 1.7 TH/MM3 (1.8-7.7); BASOPHIL % 0.2 % (0.0-2.0); EOSINOPHIL # 1.3 TH/MM3 (0-0.4); EOSINOPHIL % 28.6 % (0.0-4.0); HEMATOCRIT 26.8 % (35.0-46.0); HEMOGLOBIN 9.2 GM/DL (11.6-15.3); LYMPH % 28.7 % (9.0-44.0); LYMPHOCYTE # 1.3 TH/MM3 (1.0-4.8); MEAN CELL VOLUME 84.8 FL (80.0-100.0); MEAN CORPUSCULAR HGB CONC 34.2 % (32.0-36.0); MEAN PLATELET VOLUME 8.4 FL (7.0-11.0); MONO % 3.2 % (0.0-8.0); MONOCYTE # 0.1 TH/MM3 (0-0.9); NEUT % 39.3 % (16.0-70.0); PLATELET COUNT 34 TH/MM3 (150-450); RED BLOOD COUNT 3.16 MIL/MM3 (4.00-5.30); RED CELL DISTRIBUTION WIDTH 12.6 % (11.6-17.2); WHITE BLOOD COUNT 4.4 TH/MM3 (4.0-11.0)
[2017-10-20] MEDS: SULFAMETHOXAZOLE-TRIMETHOPRIM DS 800-160 MG TAB PO SCH ×2 (09:56→21:37)
[2017-10-20 09:57] VITALS: BP 93/56
[2017-10-20 10:07] LABS: ALBUMIN 2.8 GM/DL (3.4-5.0); BICARBONATE 16.6 MEQ/L (21.0-32.0); CALCIUM 7.9 MG/DL (8.5-10.1); CREATININE 0.38 MG/DL (0.50-1.00)
[2017-10-20 10:12] LABS: DIRECT BILIRUBIN ADULT 0.2 MG/DL (0.0-0.2); INDIRECT BILIRUBIN 0.2 MG/DL (0.0-0.8); TOTAL BILIRUBIN ADULT 0.4 MG/DL (0.2-1.0); TOTAL PROTEIN 6.2 GM/DL (6.4-8.2)
[2017-10-20] MEDS: 1/2 NS + KCL 20 MEQ INJ 1,000 ML IV SCH (10:41)
--- NOTE | 2017-10-20 10:48 | PD.ONC.PN ---
Subjective Subjective Remarks Afebrile overnight. Continuing to have pain in open sores along vagina. Also with pain in mouth. Objective Data Date Time Temp Pulse Resp B/P (MAP) Pulse Ox O2 Delivery O2 Flow Rate FiO2 10/20/17 09:57 93/56 (68) 10/20/17 09:00 97.3 83 18 83/49 (60) 10/20/17 04:22 98.8 91 16 96/60 (72) 99 10/20/17 00:09 98.2 96 18 100/70 (80) 100 10/19/17 20:20 98.3 88 16 98/60 (73) 100 10/19/17 16:00 97.8 74 18 100/60 (73) 99 10/19/17 12:30 97.4 98 18 103/59 (74) 100 10/20/17 10/20/17 10/20/17 07:00 15:00 23:00 Intake Total 240 ml Output Total 600 ml Balance -360 ml Result Diagram: 10/20/1791310/20/1714 Laboratory Results Laboratory Tests Test 10/20/17 09:14 White Blood Count 4.4 TH/MM3 Red Blood Count 3.16 MIL/MM3 Hemoglobin 9.2 GM/DL Hematocrit 26.8 % Mean Corpuscular Volume 84.8 FL Mean Corpuscular Hemoglobin 29.0 PG Mean Corpuscular Hemoglobin Concent 34.2 % Red Cell Distribution Width 12.6 % Platelet Count 34 TH/MM3 Mean Platelet Volume 8.4 FL Neutrophils (%) (Auto) 39.3 % Lymphocytes (%) (Auto) 28.7 % Monocytes (%) (Auto) 3.2 % Eosinophils (%) (Auto) 28.6 % Basophils (%) (Auto) 0.2 % Neutrophils # (Auto) 1.7 TH/MM3 Lymphocytes # (Auto) 1.3 TH/MM3 Monocytes # (Auto) 0.1 TH/MM3 Eosinophils # (Auto) 1.3 TH/MM3 Basophils # (Auto) 0.0 TH/MM3 CBC Comment AUTO DIFF Blood Urea Nitrogen 3 MG/DL Creatinine 0.38 MG/DL Random Glucose 85 MG/DL Total Protein 6.2 GM/DL Albumin 2.8 GM/DL Calcium Level 7.9 MG/DL Alkaline Phosphatase 102 U/L Aspartate Amino Transf (AST/SGOT) 73 U/L Alanine Aminotransferase (ALT/SGPT) 103 U/L Total Bilirubin 0.4 MG/DL Direct Bilirubin 0.2 MG/DL Sodium Level 140 MEQ/L Potassium Level 3.3 MEQ/L Chloride Level 110 MEQ/L Carbon Dioxide Level 16.6 MEQ/L Anion Gap 13 MEQ/L Estimat Glomerular Filtration Rate 179 ML/MIN Indirect Bilirubin 0.2 MG/DL Administered Medications Medications (Trade) Dose Ordered Sig/Lionel Route PRN Reason Start Time Stop Time Status Last Admin Dose Admin Insulin Aspart (NovoLOG SUPPLEMENTAL SCALE) 1 ACHS SLIDING SCALE SQ 10/16/17 17:00 10/17/17 08:59 Sodium Chloride (NS Flush) 2 ml UNSCH PRN IV FLUSH FLUSH AFTER USING IV ACCESS 10/16/17 15:30 10/18/17 07:03 Sodium Chloride (NS Flush) 2 ml BID IV FLUSH 10/16/17 21:00 10/19/17 20:17 Ondansetron HCl (Zofran Inj) 4 mg Q6H PRN IVP NAUSEA OR VOMITING 10/16/17 15:30 10/19/17 05:32 Acetaminophen (Tylenol) 650 mg Q6H PRN PO PAIN SCALE 1 TO 2 10/16/17 15:30 10/18/17 20:28 Oxycodone HCl (Roxicodone) 10 mg Q4H PRN PO PAIN SCALE 6 TO 10 10/16/17 15:30 10/20/17 09:57 Oxycodone HCl (Roxicodone) 5 mg Q4H PRN PO PAIN SCALE 3 TO 5 10/16/17 15:30 10/17/17 10:33 Acyclovir (Zovirax) 200 mg 5 TIMES A DAY PO 10/17/17 11:30 10/20/17 09:56 Potassium Chloride/Sodium Chloride 1,000 ml @ 100 mls/hr Q10H IV 10/17/17 15:00 10/20/17 10:41 Trimethoprim/ Sulfamethoxazole (Bactrim Ds 800-160 Mg) 1 tab Q12HR PO 10/17/17 21:00 10/24/17 20:59 10/20/17 09:56 Prochlorperazine Maleate (Compazine) 10 mg Q6H PRN PO NAUSEA 10/18/17 09:00 10/19/17 18:11 Filgrastim 300 mcg/Dextrose 25 ml @ 100 mls/hr DAILY@14 IV 10/19/17 14:00 10/19/17 15:26 Lidocaine HCl (Xylocaine 2% Viscous) 15 ml Q4H PRN SWISH-SWAL sore throat 10/19/17 11:30 10/19/17 18:11 Pantoprazole Sodium (Protonix) 40 mg DAILY PO 10/19/17 19:30 10/20/17 09:00 Objective Remarks GENERAL: Middle aged female sitting up in chair next to bed SKIN: Warm and dry. a few shallow wounds in vaginal area. no signs of infection. HEAD: Normocephalic. scabbed lips EYES: No injection or drainage. NECK: Supple, trachea midline. CARDIOVASCULAR: Regular rate and rhythm RESPIRATORY: Breath sounds equal bilaterally. No accessory muscle use. GASTROINTESTINAL: Abdomen soft, non-tender, nondistended. EXTREMITIES: No cyanosis NEUROLOGICAL: awake and alert, moving extremities. Assessment/Plan Assessment 52y/o female with methotrexate toxicity. Plan 1. pancytopenia: give last dose of Neupogen today. monitor platelet count. 2. wound care: continue wound care with twice daily gentle cleansing and zinc oxide barrier cream and telfa non-stick dressings Attending Statement The exam, history, and the medical decision-making described in the above note were completed with the assistance of the mid-level provider. I reviewed and agree with the findings presented. I attest that I had a [id number] encounter with the patient on the same day, and personally performed and documented my assessment and findings in the medical record. wbc increased and mouth a little less painful. I suspect she will soon begin to recover and will be able to go home in about 2-4 days when oral intake is adequate and wounds a little better healed. Neupogen stopped Kinsey Hargrove Oct 20, 2017 10:48 Aquiles Morley MD Oct 20, 2017 19:08
[2017-10-20 10:58] LABS: HSV 1 PCR Negative (Negative); HSV 2 PCR Positive (Negative); SPECIMEN SOURCE GENITAL; VZV RESULT Negative (Negative); VZV SPECIMEN SOURCE GENITAL
[2017-10-20 10:58] LABS: HSV 1 PCR Negative (Negative); HSV 2 PCR Negative (Negative); SPECIMEN SOURCE ORAL; VZV RESULT Negative (Negative); VZV SPECIMEN SOURCE ORAL
[2017-10-20] MEDS: ZINC OXIDE 20% OINT 30 GM TUBE TOPICAL SCH ×2 (11:00→21:36)
[2017-10-20 11:31] LABS: BANDS 4 % (0-6); BASOPHILS 6 % (0-2); BLASTS 2 % (0-0); CORRECTED NUCLEATED RBC 1 /100 WBC (0-0); DOHLE BODIES PRESENT (NONE SEEN); LYMPHOCYTES 22 % (9-44); MONOCYTES 1 % (0-8); NEUTROPHIL # MANUAL DIFF 1.4 TH/MM3 (1.8-7.7); NUCLEATED RED BLOOD CELL 1 (0-0); POLYS (SEG NEUTROPHILS) 27 % (16-70)
--- NOTE | 2017-10-20 11:35 | HHI.PR ---
Subjective Remarks Follow-up methotrexate toxicity/colitis/hypokalemia 10/18/17-patient seen and examined, complains of abdominal, oral, vaginal pain. Platelet count trending down. currently afebrile. No diarrheal episode. Daughter by the bedside and translated. Case discussed with Dr. Morley, oncology 10/19/17-patient seen and examined, reports improvement of nausea and denies any significant vaginal and oral pain. Platelet trending up. Currently afebrile. Daughter by the bedside 10/20/17-patient seen and examined continues to complain of pain of open genital and oral sores. Afebrile. Platelet count up to 34 WBC 4.4 Objective Vitals Vital Signs Date Time Temp Pulse Resp B/P (MAP) Pulse Ox O2 Delivery O2 Flow Rate FiO2 10/20/17 09:57 93/56 (68) 10/20/17 09:00 97.3 83 18 83/49 (60) 10/20/17 04:22 98.8 91 16 96/60 (72) 99 10/20/17 00:09 98.2 96 18 100/70 (80) 100 10/19/17 20:20 98.3 88 16 98/60 (73) 100 10/19/17 16:00 97.8 74 18 100/60 (73) 99 10/19/17 12:30 97.4 98 18 103/59 (74) 100 I/O 10/19/17 10/19/17 10/19/17 10/20/17 10/20/17 10/20/17 07:00 15:00 23:00 07:00 15:00 23:00 Intake Total 1200 ml 1 ml 625 ml 240 ml Output Total 1100 ml 200 ml 600 ml Balance 100 ml 1 ml 425 ml -360 ml Intake Oral 600 ml 240 ml IV Total 1200 ml 1 ml 25 ml Output Urine Total 1100 ml 200 ml 600 ml # Voids 8 # Bowel Movements 2 2 1 Result Diagram: 10/20/1791310/20/17913 Objective Remarks GENERAL: Mild distress SKIN: Warm and dry. HEAD: Normocephalic. EYES: No scleral icterus. No injection or drainage. Mouth: Ulcers NECK: Supple, trachea midline. No JVD or lymphadenopathy. CARDIOVASCULAR: Regular rate and rhythm without murmurs, gallops, or rubs. RESPIRATORY: Breath sounds equal bilaterally. No accessory muscle use. GASTROINTESTINAL: Abdomen soft, mildly tender, nondistended. MUSCULOSKELETAL: No cyanosis, or edema. : Deferred today BACK: Nontender without obvious deformity. No CVA tenderness. A/P Problem List: (1) Methotrexate toxicity ICD Code: T45.1X1A - Poisoning by antineoplastic and immunosuppressive drugs, accidental (unintentional), initial encounter (2) Colitis ICD Code: K52.9 - Noninfective gastroenteritis and colitis, unspecified (3) Thrombocytopenia ICD Code: D69.6 - Thrombocytopenia, unspecified Status: Acute (4) Rheumatoid arthritis ICD Code: M06.9 - Rheumatoid arthritis, unspecified Status: Chronic Assessment and Plan 52-year-old female with Methotrexate toxicity Mucositis Leukocytosis Thrombocytopenia Appreciate input from hematology Continue with aggressive IV fluid resuscitation Currently on Leucovorin, Neupogen Hypotension Continue with aggressive IV fluid resuscitation Sepsis rule out Urinary tract infection Colitis Herpes ruled out with negative PCR , s/p acyclovir s/p Flagyl Continue Bactrim DS until 10/24/17, however may switch to Levaquin Appreciate input from infectious disease specialist Diabetes Resume metformin Currently on sliding scale insulin with fingerstick blood glucose monitoring Shortness of breath Likely secondary to anemia. CXR unremarkable. - Oxygen and nebs as needed. - Physical therapy evaluation. Hypokalemia Replace electrolyte and monitor PPx: Trace Crowley MD Oct 20, 2017 11:35
[2017-10-20 11:36] LABS: OVALOCYTES 1+ (NORMAL)
[2017-10-20] MEDS ORDERED: POTASSIUM CHLORIDE 25 MEQ EFFERVESCENT TAB PO ONE (12:00)
--- NOTE | 2017-10-20 17:07 | HHI.PR ---
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
[2017-10-20 18:00] VITALS: BP 85/55; PULSE 85; RESP 20; TEMP 96.6; O2SAT 98
[2017-10-20] MEDS: SODIUM CHLORIDE 0.9% FLUSH 10 ML FLUSH IV FLUSH SCH ×2 (18:53→21:00)
[2017-10-20] MEDS: FILGRASTIM INJ 300 MCG in DEXTROSE 5% IN WATER INJ 24 ML IV SCH ×2 (18:53)
[2017-10-20] MEDS: metFORMIN HCL 500 MG TAB PO SCH (18:53)
[2017-10-20] MEDS: NYSTAT/DIPHENHY/LIDO MOUTHWASH (Adult) 120ML SWISH-SWAL SCH ×2 (18:54→21:36)
[2017-10-20 21:23] VITALS: BP 99/55; PULSE 94; RESP 18; TEMP 99.1; O2SAT 98
[2017-10-20] MEDS: ONDANSETRON HCL 4 MG/2 ML VIAL IVP PRN (21:36)
[2017-10-20] MEDS: valACYclovir HCL 500 MG TAB PO SCH (21:37)
[2017-10-21 00:18] VITALS: BP 99/52; PULSE 104; RESP 16; TEMP 98.1; O2SAT 99
[2017-10-21] MEDS: 1/2 NS + KCL 20 MEQ INJ 1,000 ML IV SCH ×3 (00:22→19:00)
[2017-10-21 05:55] VITALS: BP 99/46; PULSE 80; RESP 18; TEMP 98.5; O2SAT 98
[2017-10-21 06:31] LABS: AUTOMATED NEUTROPHIL # 2.4 TH/MM3 (1.8-7.7); BASOPHIL % 0.3 % (0.0-2.0); EOSINOPHIL % 29.6 % (0.0-4.0); HEMATOCRIT 27.1 % (35.0-46.0); HEMOGLOBIN 9.5 GM/DL (11.6-15.3); LYMPH % 25.5 % (9.0-44.0); LYMPHOCYTE # 1.7 TH/MM3 (1.0-4.8); MEAN CELL VOLUME 85.5 FL (80.0-100.0); MEAN CORPUSCULAR HEMOGLOBIN 30.1 PG (27.0-34.0); MEAN CORPUSCULAR HGB CONC 35.2 % (32.0-36.0); MEAN PLATELET VOLUME 9.9 FL (7.0-11.0); MONOCYTE # 0.6 TH/MM3 (0-0.9); NEUT % 35.6 % (16.0-70.0); PLATELET COUNT 36 TH/MM3 (150-450); RED BLOOD COUNT 3.17 MIL/MM3 (4.00-5.30); RED CELL DISTRIBUTION WIDTH 12.8 % (11.6-17.2); WHITE BLOOD COUNT 6.8 TH/MM3 (4.0-11.0)
[2017-10-21 07:01] LABS: ALBUMIN 2.7 GM/DL (3.4-5.0); DIRECT BILIRUBIN ADULT 0.1 MG/DL (0.0-0.2)
[2017-10-21 07:02] LABS: INDIRECT BILIRUBIN 0.2 MG/DL (0.0-0.8); TOTAL BILIRUBIN ADULT 0.3 MG/DL (0.2-1.0); TOTAL PROTEIN 6.3 GM/DL (6.4-8.2)
[2017-10-21 07:29] LABS: BANDS 2 % (0-6); LYMPHOCYTES 26 % (9-44); MONOCYTES 5 % (0-8); NEUTROPHIL # MANUAL DIFF 2.7 TH/MM3 (1.8-7.7); POLYS (SEG NEUTROPHILS) 38 % (16-70)
[2017-10-21] MEDS: INSULIN ASPART SUPPLEMENTAL SCALE SQ SCH ×4 (08:00→21:00)
[2017-10-21] MEDS: ZINC OXIDE 20% OINT 30 GM TUBE TOPICAL SCH ×2 (09:00→21:00)
[2017-10-21] MEDS: valACYclovir HCL 500 MG TAB PO SCH ×2 (09:00→21:00)
--- NOTE | 2017-10-21 09:27 | PD.ONC.PN ---
Subjective Subjective Remarks Afebrile overnight. Patient resting in bed in nad. No complaints. Vaginal area feeling improved after use of Zinc oxide. She is eating some food but very little. Objective Data Date Time Temp Pulse Resp B/P (MAP) Pulse Ox O2 Delivery O2 Flow Rate FiO2 10/21/17 05:55 98.5 80 18 99/46 (63) 98 10/21/17 00:18 98.1 104 16 99/52 (68) 99 10/20/17 21:23 99.1 94 18 99/55 (70) 98 10/20/17 18:00 96.6 85 20 85/55 (65) 98 10/20/17 10:57 18 10/20/17 09:57 93/56 (68) 10/21/17 10/21/17 10/21/17 07:00 15:00 23:00 Intake Total 1000 ml Balance 1000 ml Result Diagram: 10/21/17 0538 10/20/17 0914 Laboratory Results Laboratory Tests Test 10/21/17 05:38 White Blood Count 6.8 TH/MM3 Red Blood Count 3.17 MIL/MM3 Hemoglobin 9.5 GM/DL Hematocrit 27.1 % Mean Corpuscular Volume 85.5 FL Mean Corpuscular Hemoglobin 30.1 PG Mean Corpuscular Hemoglobin Concent 35.2 % Red Cell Distribution Width 12.8 % Platelet Count 36 TH/MM3 Mean Platelet Volume 9.9 FL Neutrophils (%) (Auto) 35.6 % Lymphocytes (%) (Auto) 25.5 % Monocytes (%) (Auto) 9.0 % Eosinophils (%) (Auto) 29.6 % Basophils (%) (Auto) 0.3 % Neutrophils # (Auto) 2.4 TH/MM3 Lymphocytes # (Auto) 1.7 TH/MM3 Monocytes # (Auto) 0.6 TH/MM3 Eosinophils # (Auto) 2.0 TH/MM3 Basophils # (Auto) 0.0 TH/MM3 CBC Comment AUTO DIFF Differential Total Cells Counted 100 Neutrophils % (Manual) 38 % Band Neutrophils % 2 % Lymphocytes % 26 % Monocytes % 5 % Eosinophils % 29 % Neutrophils # (Manual) 2.7 TH/MM3 Differential Comment FINAL DIFF MANUAL Platelet Estimate LOW Platelet Morphology Comment NORMAL Red Cell Morphology Comment NORMAL Total Bilirubin 0.3 MG/DL Direct Bilirubin 0.1 MG/DL Indirect Bilirubin 0.2 MG/DL Aspartate Amino Transf (AST/SGOT) 53 U/L Alanine Aminotransferase (ALT/SGPT) 87 U/L Alkaline Phosphatase 111 U/L Total Protein 6.3 GM/DL Albumin 2.7 GM/DL Administered Medications Medications (Trade) Dose Ordered Sig/Lionel Route PRN Reason Start Time Stop Time Status Last Admin Dose Admin Insulin Aspart (NovoLOG SUPPLEMENTAL SCALE) 1 ACHS SLIDING SCALE SQ 10/16/17 17:00 10/17/17 08:59 Sodium Chloride (NS Flush) 2 ml UNSCH PRN IV FLUSH FLUSH AFTER USING IV ACCESS 10/16/17 15:30 10/18/17 07:03 Sodium Chloride (NS Flush) 2 ml BID IV FLUSH 10/16/17 21:00 10/20/17 18:53 Ondansetron HCl (Zofran Inj) 4 mg Q6H PRN IVP NAUSEA OR VOMITING 10/16/17 15:30 10/20/17 21:36 Acetaminophen (Tylenol) 650 mg Q6H PRN PO PAIN SCALE 1 TO 2 10/16/17 15:30 10/18/17 20:28 Oxycodone HCl (Roxicodone) 10 mg Q4H PRN PO PAIN SCALE 6 TO 10 10/16/17 15:30 10/20/17 09:57 Oxycodone HCl (Roxicodone) 5 mg Q4H PRN PO PAIN SCALE 3 TO 5 10/16/17 15:30 10/17/17 10:33 Potassium Chloride/Sodium Chloride 1,000 ml @ 100 mls/hr Q10H IV 10/17/17 15:00 10/21/17 00:22 Trimethoprim/ Sulfamethoxazole (Bactrim Ds 800-160 Mg) 1 tab Q12HR PO 10/17/17 21:00 10/24/17 20:59 10/20/17 21:37 Prochlorperazine Maleate (Compazine) 10 mg Q6H PRN PO NAUSEA 10/18/17 09:00 10/19/17 18:11 Pantoprazole Sodium (Protonix) 40 mg DAILY PO 10/19/17 19:30 10/20/17 09:00 Zinc Oxide (Zinc Oxide 20% Oint) 1 applic BID TOPICAL 10/20/17 11:00 10/20/17 21:36 Metformin HCl (Glucophage) 1,000 mg BIDPC PO 10/20/17 18:00 10/20/17 18:53 Multi-Ingredient Mouthwash/Gargle (Magic Mouthwash Adult Liq) 5 ml QID SWISH-SWAL 10/20/17 18:00 10/20/17 21:36 Valacyclovir HCl (Valtrex) 1,000 mg Q12HR PO 10/20/17 21:00 10/20/17 21:37 Objective Remarks GENERAL: Middle aged female sitting up in chair next to bed SKIN: Warm and dry. small open wounds on vaginal area, improving. HEAD: Normocephalic. scabbed lips EYES: No injection or drainage. NECK: Supple, trachea midline. CARDIOVASCULAR: Regular rate and rhythm RESPIRATORY: Breath sounds equal bilaterally. No accessory muscle use. GASTROINTESTINAL: Abdomen soft, non-tender, nondistended. EXTREMITIES: No cyanosis NEUROLOGICAL: awake and alert, normal speech. moving all extremities. Assessment/Plan Assessment 52y/o female with methotrexate toxicity. Plan 1. pancytopenia: monitor platelet count. WBC recovered 2. wound care: continue zinc oxide to open wounds with gentle saline cleansing 3. discharge disposition: once patient is eating and drinking and pain controlled she could be discharged, possibly tomorrow. Kinsey Hargrove Oct 21, 2017 09:27 Aquiles Morley MD Oct 25, 2017 09:57
[2017-10-21] MEDS: PANTOPRAZOLE SOD 40 MG DELAYED RELEASE TAB PO SCH (09:59)
[2017-10-21] MEDS: SULFAMETHOXAZOLE-TRIMETHOPRIM DS 800-160 MG TAB PO SCH ×2 (09:59→23:23)
[2017-10-21] MEDS: metFORMIN HCL 500 MG TAB PO SCH ×2 (09:59→17:57)
[2017-10-21] MEDS: SODIUM CHLORIDE 0.9% FLUSH 10 ML FLUSH IV FLUSH SCH ×2 (10:00→23:23)
[2017-10-21] MEDS: NYSTAT/DIPHENHY/LIDO MOUTHWASH (Adult) 120ML SWISH-SWAL SCH ×4 (10:01→23:23)
--- NOTE | 2017-10-21 10:28 | HHI.PR ---
Subjective Remarks Follow-up methotrexate toxicity/colitis/hypokalemia 10/18/17-patient seen and examined, complains of abdominal, oral, vaginal pain. Platelet count trending down. currently afebrile. No diarrheal episode. Daughter by the bedside and translated. Case discussed with Dr. Morley, oncology 10/19/17-patient seen and examined, reports improvement of nausea and denies any significant vaginal and oral pain. Platelet trending up. Currently afebrile. Daughter by the bedside 10/20/17-patient seen and examined continues to complain of pain of open genital and oral sores. Afebrile. Platelet count up to 34 WBC 4.4 10/21/17-patient seen and examined, improvement of open genital and oral sores pain. BP improving. Objective Vitals Vital Signs Date Time Temp Pulse Resp B/P (MAP) Pulse Ox O2 Delivery O2 Flow Rate FiO2 10/21/17 05:55 98.5 80 18 99/46 (63) 98 10/21/17 00:18 98.1 104 16 99/52 (68) 99 10/20/17 21:23 99.1 94 18 99/55 (70) 98 10/20/17 18:00 96.6 85 20 85/55 (65) 98 10/20/17 10:57 18 I/O 10/20/17 10/20/17 10/20/17 10/21/17 10/21/17 10/21/17 07:00 15:00 23:00 07:00 15:00 23:00 Intake Total 240 ml 1000 ml Output Total 600 ml 1500 ml Balance -360 ml -1500 ml 1000 ml Intake Oral 240 ml IV Total 1000 ml Output Urine Total 600 ml 1500 ml # Bowel Movements 1 Result Diagram: 10/21/17 0538 10/20/17 0914 Objective Remarks GENERAL: Mild distress SKIN: Warm and dry. HEAD: Normocephalic. EYES: No scleral icterus. No injection or drainage. Mouth: Ulcers NECK: Supple, trachea midline. No JVD or lymphadenopathy. CARDIOVASCULAR: Regular rate and rhythm without murmurs, gallops, or rubs. RESPIRATORY: Breath sounds equal bilaterally. No accessory muscle use. GASTROINTESTINAL: Abdomen soft, mildly tender, nondistended. MUSCULOSKELETAL: No cyanosis, or edema. : Deferred today BACK: Nontender without obvious deformity. No CVA tenderness. A/P Problem List: (1) Methotrexate toxicity ICD Code: T45.1X1A - Poisoning by antineoplastic and immunosuppressive drugs, accidental (unintentional), initial encounter (2) Colitis ICD Code: K52.9 - Noninfective gastroenteritis and colitis, unspecified (3) Thrombocytopenia ICD Code: D69.6 - Thrombocytopenia, unspecified Status: Acute (4) Rheumatoid arthritis ICD Code: M06.9 - Rheumatoid arthritis, unspecified Status: Chronic Assessment and Plan 52-year-old female with Methotrexate toxicity Mucositis Leukocytosis Thrombocytopenia Appreciate input from hematology Continue with aggressive IV fluid resuscitation Currently on Leucovorin, Hypotension Continue with aggressive IV fluid resuscitation Sepsis rule out Urinary tract infection Colitis Herpes II Continue Valtrex s/p Flagyl Continue Bactrim DS until 10/24/17 Appreciate input from infectious disease specialist Diabetes Continue metformin Currently on sliding scale insulin with fingerstick blood glucose monitoring Shortness of breath-resolved Likely secondary to anemia. CXR unremarkable. - Oxygen and nebs as needed. - Physical therapy evaluation. Hypokalemia Replace electrolyte and monitor PPx: SCDs Discharge Planning Likely discharge in Trace Brown MD Oct 21, 2017 10:28
[2017-10-21 12:15] VITALS: BP 108/67; PULSE 101; RESP 18; TEMP 98.8; O2SAT 98
[2017-10-21] MEDS ORDERED: MORPHINE SULFATE 2 MG/ML INJ IV PRN (15:15)
[2017-10-21 15:48] LABS: BICARBONATE 18.8 MEQ/L (21.0-32.0); CALCIUM 8.5 MG/DL (8.5-10.1); CREATININE 0.59 MG/DL (0.50-1.00)
[2017-10-21 18:28] VITALS: BP 96/60; PULSE 79; RESP 20; TEMP 97.2; O2SAT 99
[2017-10-21 23:17] VITALS: BP 94/60; PULSE 83; RESP 18; TEMP 97.6; O2SAT 99
[2017-10-22 01:50] VITALS: BP 103/73; PULSE 88; RESP 16; O2SAT 98
[2017-10-22] MEDS: 1/2 NS + KCL 20 MEQ INJ 1,000 ML IV SCH (05:00)
[2017-10-22 06:34] LABS: HEMATOCRIT 30.9 % (35.0-46.0); HEMOGLOBIN 10.5 GM/DL (11.6-15.3); MEAN CELL VOLUME 85.6 FL (80.0-100.0); MEAN CORPUSCULAR HEMOGLOBIN 29.1 PG (27.0-34.0); MEAN PLATELET VOLUME 9.2 FL (7.0-11.0); PLATELET COUNT 70 TH/MM3 (150-450); RED BLOOD COUNT 3.61 MIL/MM3 (4.00-5.30); RED CELL DISTRIBUTION WIDTH 13.1 % (11.6-17.2); WHITE BLOOD COUNT 6.6 TH/MM3 (4.0-11.0)
[2017-10-22 07:08] LABS: ALBUMIN 3.3 GM/DL (3.4-5.0); CALCIUM 8.9 MG/DL (8.5-10.1); CREATININE 0.59 MG/DL (0.50-1.00); DIRECT BILIRUBIN ADULT 0.1 MG/DL (0.0-0.2)
[2017-10-22 07:10] LABS: INDIRECT BILIRUBIN 0.2 MG/DL (0.0-0.8); TOTAL BILIRUBIN ADULT 0.3 MG/DL (0.2-1.0)
[2017-10-22 07:58] LABS: BANDS 2 % (0-6); BASOPHILS 2 % (0-2); BLASTS 3 % (0-0); LYMPHOCYTES 27 % (9-44); MONOCYTES 11 % (0-8); NEUTROPHIL # MANUAL DIFF 2.1 TH/MM3 (1.8-7.7); POLYS (SEG NEUTROPHILS) 30 % (16-70)
[2017-10-22] MEDS: INSULIN ASPART SUPPLEMENTAL SCALE SQ SCH ×2 (08:00→12:00)
[2017-10-22] MEDS ORDERED: POTASSIUM CHLORIDE 25 MEQ EFFERVESCENT TAB PO ONE (08:00)
[2017-10-22 08:37] VITALS: BP 104/59; PULSE 84; RESP 16; TEMP 97.9; O2SAT 97
--- NOTE | 2017-10-22 08:39 | PD.ONC.PN ---
Subjective Subjective Remarks feeling better and lips starting to heal Objective Data Date Time Temp Pulse Resp B/P (MAP) Pulse Ox O2 Delivery O2 Flow Rate FiO2 10/22/17 01:50 88 16 103/73 (83) 98 10/21/17 23:17 97.6 83 18 94/60 (71) 99 10/21/17 18:28 97.2 79 20 96/60 (72) 99 10/21/17 12:15 98.8 101 18 108/67 (81) 98 10/22/17 10/22/17 10/22/17 07:00 15:00 23:00 Intake Total 1000 ml Balance 1000 ml Result Diagram: 10/22/1722 10/22/17 0622 Laboratory Results Laboratory Tests Test 10/21/17 15:15 10/22/17 06:22 Blood Urea Nitrogen 1 MG/DL 2 MG/DL Creatinine 0.59 MG/DL 0.59 MG/DL Random Glucose 119 MG/DL 96 MG/DL Calcium Level 8.5 MG/DL 8.9 MG/DL Sodium Level 141 MEQ/L 140 MEQ/L Potassium Level 3.5 MEQ/L 3.2 MEQ/L Chloride Level 110 MEQ/L 110 MEQ/L Carbon Dioxide Level 18.8 MEQ/L 18.0 MEQ/L Anion Gap 12 MEQ/L 12 MEQ/L Estimat Glomerular Filtration Rate 107 ML/MIN 107 ML/MIN White Blood Count 6.6 TH/MM3 Red Blood Count 3.61 MIL/MM3 Hemoglobin 10.5 GM/DL Hematocrit 30.9 % Mean Corpuscular Volume 85.6 FL Mean Corpuscular Hemoglobin 29.1 PG Mean Corpuscular Hemoglobin Concent 34.0 % Red Cell Distribution Width 13.1 % Platelet Count 70 TH/MM3 Mean Platelet Volume 9.2 FL CBC Comment AUTO DIFF Differential Total Cells Counted 100 Neutrophils % (Manual) 30 % Band Neutrophils % 2 % Lymphocytes % 27 % Monocytes % 11 % Eosinophils % 25 % Basophils % 2 % Neutrophils # (Manual) 2.1 TH/MM3 Differential Comment FINAL DIFF MANUAL Blastocytes 3 % Platelet Estimate LOW Platelet Morphology Comment NORMAL Red Cell Morphology Comment NORMAL Total Protein 7.0 GM/DL Albumin 3.3 GM/DL Alkaline Phosphatase 120 U/L Aspartate Amino Transf (AST/SGOT) 36 U/L Alanine Aminotransferase (ALT/SGPT) 74 U/L Total Bilirubin 0.3 MG/DL Direct Bilirubin 0.1 MG/DL Indirect Bilirubin 0.2 MG/DL Administered Medications Medications (Trade) Dose Ordered Sig/Lionel Route PRN Reason Start Time Stop Time Status Last Admin Dose Admin Insulin Aspart (NovoLOG SUPPLEMENTAL SCALE) 1 ACHS SLIDING SCALE SQ 10/16/17 17:00 10/17/17 08:59 Sodium Chloride (NS Flush) 2 ml UNSCH PRN IV FLUSH FLUSH AFTER USING IV ACCESS 10/16/17 15:30 10/18/17 07:03 Sodium Chloride (NS Flush) 2 ml BID IV FLUSH 10/16/17 21:00 10/21/17 23:23 Ondansetron HCl (Zofran Inj) 4 mg Q6H PRN IVP NAUSEA OR VOMITING 10/16/17 15:30 10/20/17 21:36 Acetaminophen (Tylenol) 650 mg Q6H PRN PO PAIN SCALE 1 TO 2 10/16/17 15:30 10/18/17 20:28 Oxycodone HCl (Roxicodone) 10 mg Q4H PRN PO PAIN SCALE 6 TO 10 10/16/17 15:30 10/20/17 09:57 Oxycodone HCl (Roxicodone) 5 mg Q4H PRN PO PAIN SCALE 3 TO 5 10/16/17 15:30 10/17/17 10:33 Potassium Chloride/Sodium Chloride 1,000 ml @ 100 mls/hr Q10H IV 10/17/17 15:00 10/21/17 19:00 Trimethoprim/ Sulfamethoxazole (Bactrim Ds 800-160 Mg) 1 tab Q12HR PO 10/17/17 21:00 10/24/17 20:59 10/21/17 23:23 Prochlorperazine Maleate (Compazine) 10 mg Q6H PRN PO NAUSEA 10/18/17 09:00 10/19/17 18:11 Pantoprazole Sodium (Protonix) 40 mg DAILY PO 10/19/17 19:30 10/21/17 09:59 Zinc Oxide (Zinc Oxide 20% Oint) 1 applic BID TOPICAL 10/20/17 11:00 10/21/17 21:00 Metformin HCl (Glucophage) 1,000 mg BIDPC PO 10/20/17 18:00 10/21/17 17:57 Multi-Ingredient Mouthwash/Gargle (Magic Mouthwash Adult Liq) 5 ml QID SWISH-SWAL 10/20/17 18:00 10/21/17 23:23 Valacyclovir HCl (Valtrex) 1,000 mg Q12HR PO 10/20/17 21:00 10/21/17 21:00 Objective Remarks GENERAL: Well-nourished, well-developed patient. SKIN: Warm and dry. HEAD: Normocephalic. lips beginning to heal. EYES: No scleral icterus. No injection or drainage. NECK: Supple, trachea midline. No JVD or lymphadenopathy. LYMPHATIC: No adenopathy. CARDIOVASCULAR: Regular rate and rhythm without murmurs. RESPIRATORY: Breath sounds equal bilaterally. No accessory muscle use. GASTROINTESTINAL: Abdomen soft, non-tender, nondistended. EXTREMITIES: No cyanosis, or edema. MUSCULOSKELETAL: Adequate muscle tone. NEUROLOGICAL: No obvious focal deficit. Awake, alert, and oriented x3. PSYCHIATRIC: Appropriate mood and affect; insight and judgment normal. Assessment/Plan Assessment 52y/o female with methotrexate toxicity. Plan 1: counts are recovering, lip beginning to heal and oral intake is adequate. At this point she can go home and would recommend - follow up with her md in 2 weeks with cbc plat - she is not to resume MTX until she has been cleared by her md and she is to take it as prescribed. Aquiles Morley MD Oct 22, 2017 08:38
[2017-10-22] MEDS: metFORMIN HCL 500 MG TAB PO SCH (08:45)
[2017-10-22] MEDS: PANTOPRAZOLE SOD 40 MG DELAYED RELEASE TAB PO SCH (08:45)
[2017-10-22] MEDS: NYSTAT/DIPHENHY/LIDO MOUTHWASH (Adult) 120ML SWISH-SWAL SCH ×2 (08:45→13:00)
[2017-10-22] MEDS: valACYclovir HCL 500 MG TAB PO SCH (08:46)
[2017-10-22] MEDS: SULFAMETHOXAZOLE-TRIMETHOPRIM DS 800-160 MG TAB PO SCH (08:46)
[2017-10-22] MEDS: SODIUM CHLORIDE 0.9% FLUSH 10 ML FLUSH IV FLUSH SCH (08:52)
[2017-10-22] MEDS: ZINC OXIDE 20% OINT 30 GM TUBE TOPICAL SCH (08:52)
--- NOTE | 2017-10-22 10:06 | HHI.PR ---
Subjective Remarks Follow-up methotrexate toxicity/colitis/hypokalemia 10/18/17-patient seen and examined, complains of abdominal, oral, vaginal pain. Platelet count trending down. currently afebrile. No diarrheal episode. Daughter by the bedside and translated. Case discussed with Dr. Morley, oncology 10/19/17-patient seen and examined, reports improvement of nausea and denies any significant vaginal and oral pain. Platelet trending up. Currently afebrile. Daughter by the bedside 10/20/17-patient seen and examined continues to complain of pain of open genital and oral sores. Afebrile. Platelet count up to 34 WBC 4.4 10/21/17-patient seen and examined, improvement of open genital and oral sores pain. BP improving. 10/22/17-patient seen and examined, platelets up to 70. Oral ulcer healing. Good appetite and BP stable Objective Vitals Vital Signs Date Time Temp Pulse Resp B/P (MAP) Pulse Ox O2 Delivery O2 Flow Rate FiO2 10/22/17 01:50 88 16 103/73 (83) 98 10/21/17 23:17 97.6 83 18 94/60 (71) 99 10/21/17 18:28 97.2 79 20 96/60 (72) 99 10/21/17 12:15 98.8 101 18 108/67 (81) 98 I/O 10/21/17 10/21/17 10/21/17 10/22/17 10/22/17 10/22/17 07:00 15:00 23:00 07:00 15:00 23:00 Intake Total 1000 ml 480 ml 1000 ml Balance 1000 ml 480 ml 1000 ml Intake Oral 480 ml IV Total 1000 ml 1000 ml # Voids 3 2 # Bowel Movements 3 3 Result Diagram: 10/22/17 0622 10/22/17 0622 Imaging Last Impressions Chest X-Ray 10/16/17 0000 Signed Impressions: Service Date/Time: Monday, October 16, 2017 16:38 - CONCLUSION: No acute cardiopulmonary disease identified. Steve Marcelo MD Abdomen/Pelvis CT 10/16/17 0000 Signed Impressions: Service Date/Time: Monday, October 16, 2017 22:03 - CONCLUSION: 1. Nonspecific diffuse wall thickening the ascending colon suggesting colitis. No free air or free fluid. No bowel dilatation. 2. Moderate to severe bilateral hip osteoarthritic findings. 3. Pars interarticularis defects of L5. Steve Marcelo MD Objective Remarks GENERAL: Mild distress SKIN: Warm and dry. HEAD: Normocephalic. EYES: No scleral icterus. No injection or drainage. Mouth: Ulcers NECK: Supple, trachea midline. No JVD or lymphadenopathy. CARDIOVASCULAR: Regular rate and rhythm without murmurs, gallops, or rubs. RESPIRATORY: Breath sounds equal bilaterally. No accessory muscle use. GASTROINTESTINAL: Abdomen soft, mildly tender, nondistended. MUSCULOSKELETAL: No cyanosis, or edema. BACK: Nontender without obvious deformity. No CVA tenderness. Procedures None A/P Problem List: (1) Methotrexate toxicity ICD Code: T45.1X1A - Poisoning by antineoplastic and immunosuppressive drugs, accidental (unintentional), initial encounter (2) Colitis ICD Code: K52.9 - Noninfective gastroenteritis and colitis, unspecified (3) Thrombocytopenia ICD Code: D69.6 - Thrombocytopenia, unspecified Status: Acute (4) Rheumatoid arthritis ICD Code: M06.9 - Rheumatoid arthritis, unspecified Status: Chronic Assessment and Plan 52-year-old female with Methotrexate toxicity Mucositis-Improving Leukocytosis Thrombocytopenia-Improving Appreciate input from hematology Continue with aggressive IV fluid resuscitation Completed Leucovorin, Patient to resume methotrexate after cleared by her M.D. upon discharge Hypotension-improving Continue with aggressive IV fluid resuscitation Sepsis rule out Urinary tract infection Colitis Herpes II Continue Valtrex s/p Flagyl Continue Bactrim DS until 10/24/17 Appreciate input from infectious disease specialist Diabetes Continue metformin Currently on sliding scale insulin with fingerstick blood glucose monitoring Shortness of breath-resolved Likely secondary to anemia. CXR unremarkable. - Oxygen and nebs as needed. - Physical therapy evaluation. Hypokalemia Replace electrolyte and monitor PPx: Trace Crowley MD Oct 22, 2017 10:06
[2017-10-22] MEDS ORDERED: METF500 PO (10:10)
[2017-10-22] MEDS ORDERED: VALT500T PO (10:10)
[2017-10-22] MEDS ORDERED: SULF1TAB23 PO (10:10)
[2017-10-22] MEDS ORDERED: Zinc Oxide 20% Oint TOPICAL (10:10)
--- NOTE | 2017-10-22 10:13 | HHI.DS ---
Discharge Summary Admission Date Oct 16, 2017 at 14:43 Discharge Date: Oct 22, 2017 Admitting Diagnosis UTI/sepsis/low platelets (1) Methotrexate toxicity ICD Code: T45.1X1A - Poisoning by antineoplastic and immunosuppressive drugs, accidental (unintentional), initial encounter (2) Colitis ICD Code: K52.9 - Noninfective gastroenteritis and colitis, unspecified (3) Thrombocytopenia ICD Code: D69.6 - Thrombocytopenia, unspecified Status: Acute (4) Rheumatoid arthritis ICD Code: M06.9 - Rheumatoid arthritis, unspecified Status: Chronic Procedures None Brief History - From Admission The patient is a 52-year-old female with past medical history significant for rheumatoid arthritis and diabetes who is presenting to the hospital for sores and easy bruising. She is a Lao-speaking patient and interpretation was provided by the computer interpretation system. The patient was recently discharged from the hospital for treatment of cellulitis and a urinary tract infection. The patient says she has developed sores in her mouth. She also describes a vaginal infection which she believes is similar to a fungus. She says it's involving her groin area. She has been itchy. She says she has had bruising and lesions on her lips over the past 2 weeks. She has noticed bruising on her legs for the past 3 days. She says that she has abdominal pain and when she vomits the pain gets better. She says that that abdominal pain is located in the upper stomach area. She has been experiencing shortness of breath, especially when talking. She denies any chest pain. She does endorse continued discomfort when urinating. She denies diarrhea. She says she came back to the emergency room on Wednesday but was discharged home. CBC/BMP: 10/22/17 0622 10/22/17 0622 Significant Findings Laboratory Tests Test 10/20/17 09:14 10/21/17 05:38 10/21/17 15:15 10/22/17 06:22 Red Blood Count 3.16 MIL/MM3 (4.00-5.30) 3.17 MIL/MM3 (4.00-5.30) 3.61 MIL/MM3 (4.00-5.30) Hemoglobin 9.2 GM/DL (11.6-15.3) 9.5 GM/DL (11.6-15.3) 10.5 GM/DL (11.6-15.3) Hematocrit 26.8 % (35.0-46.0) 27.1 % (35.0-46.0) 30.9 % (35.0-46.0) Platelet Count 34 TH/MM3 (150-450) 36 TH/MM3 (150-450) 70 TH/MM3 (150-450) Eosinophils (%) (Auto) 28.6 % (0.0-4.0) 29.6 % (0.0-4.0) Neutrophils # (Auto) 1.7 TH/MM3 (1.8-7.7) Eosinophils # (Auto) 1.3 TH/MM3 (0-0.4) 2.0 TH/MM3 (0-0.4) Eosinophils % 38 % (0-4) 29 % (0-4) 25 % (0-4) Basophils % 6 % (0-2) Neutrophils # (Manual) 1.4 TH/MM3 (1.8-7.7) Nucleated Red Blood Cells 1 /100 WBC (0-0) Blastocytes 2 % (0-0) 3 % (0-0) Dohle Bodies PRESENT (NONE SEEN) Platelet Estimate LOW (NORMAL) LOW (NORMAL) LOW (NORMAL) Ovalocytes 1+ (NORMAL) Blood Urea Nitrogen 3 MG/DL (7-18) 1 MG/DL (7-18) 2 MG/DL (7-18) Creatinine 0.38 MG/DL (0.50-1.00) Total Protein 6.2 GM/DL (6.4-8.2) 6.3 GM/DL (6.4-8.2) Albumin 2.8 GM/DL (3.4-5.0) 2.7 GM/DL (3.4-5.0) 3.3 GM/DL (3.4-5.0) Calcium Level 7.9 MG/DL (8.5-10.1) Aspartate Amino Transf (AST/SGOT) 73 U/L (15-37) 53 U/L (15-37) Alanine Aminotransferase (ALT/SGPT) 103 U/L (10-53) 87 U/L (10-53) 74 U/L (10-53) Potassium Level 3.3 MEQ/L (3.5-5.1) 3.2 MEQ/L (3.5-5.1) Chloride Level 110 MEQ/L (98-107) 110 MEQ/L (98-107) 110 MEQ/L (98-107) Carbon Dioxide Level 16.6 MEQ/L (21.0-32.0) 18.8 MEQ/L (21.0-32.0) 18.0 MEQ/L (21.0-32.0) Monocytes (%) (Auto) 9.0 % (0.0-8.0) Random Glucose 119 MG/DL (74-106) Monocytes % 11 % (0-8) Alkaline Phosphatase 120 U/L (45-117) Imaging Last Impressions Chest X-Ray 10/16/17 0000 Signed Impressions: Service Date/Time: Monday, October 16, 2017 16:38 - CONCLUSION: No acute cardiopulmonary disease identified. Steve Marcelo MD Abdomen/Pelvis CT 10/16/17 0000 Signed Impressions: Service Date/Time: Monday, October 16, 2017 22:03 - CONCLUSION: 1. Nonspecific diffuse wall thickening the ascending colon suggesting colitis. No free air or free fluid. No bowel dilatation. 2. Moderate to severe bilateral hip osteoarthritic findings. 3. Pars interarticularis defects of L5. Steve Marcelo MD PE at Discharge GENERAL: Mild distress SKIN: Warm and dry. HEAD: Normocephalic. EYES: No scleral icterus. No injection or drainage. Mouth: Ulcers NECK: Supple, trachea midline. No JVD or lymphadenopathy. CARDIOVASCULAR: Regular rate and rhythm without murmurs, gallops, or rubs. RESPIRATORY: Breath sounds equal bilaterally. No accessory muscle use. GASTROINTESTINAL: Abdomen soft, mildly tender, nondistended. MUSCULOSKELETAL: No cyanosis, or edema. BACK: Nontender without obvious deformity. No CVA tenderness. Hospital Course While in hospital, patient was treated for Methotrexate toxicity Mucositis Leukocytosis Thrombocytopenia-Improving Hematology was consulted, and patient was treated with leucovorin and Neupogen with monitoring of platelet count. She was provided aggressive IV fluid resuscitation. Patient only to resume methotrexate after seen and cleared by her M.D. upon discharge Hypotension- Improved with aggressive IV fluid resuscitation Sepsis rule out Urinary tract infection Colitis Herpes II Infectious disease specialist was consulted, patient was started on IV antibiotics including Cipro and Flagyl which was subsequently discontinued. She was switched to by mouth Bactrim which she will complete anterior 10/24/17. Patient was also started on Valtrex 500 mg by mouth every 12 hours for herpes II Diabetes Initially oral hypoglycemic agent were held and patient was started on sliding scale insulin. Metformin was resumed subsequently. Shortness of breath-resolved Likely secondary to anemia. CXR unremarkable. - Oxygen and nebs as needed. - Physical therapy evaluation. Hypokalemia Electrolytes abnormality was corrected accordingly PPx: SCDs Pt Condition on Discharge: Stable Discharge Disposition: Discharge Home Discharge Time: <= 30 minutes Discharge Instructions DIET: Follow Instructions for: Heart Healthy Diet Activities you can perform: Regular-No Restrictions Follow up Referrals: Oncology PCP Follow-up - 1 Week New Orders: CBC WITH DIFF - 2 Weeks New Medications: Metformin (Glucophage) 500 Mg Tab 1000 MG PO BIDPC for Blood Sugar Management, #60 TAB 11 Refills Sulfamethoxazole-Trimethoprim (Sulfamethoxazole-Trimethoprim) 800-160 Mg Tab 1 TAB PO Q12HR for Infection, #6 TAB Valacyclovir (Valtrex) 500 Mg Tab 1000 MG PO Q12HR for Infection, #20 TAB [Zinc Oxide 20% Oint] () 30 APPLIC/30 GM OINT 1 APPLIC TOPICAL BID for Infection, #1 3 Refills Continued Medications: Gabapentin (Gabapentin) 100 Mg Cap 100 MG PO BID for Pain Management, #60 CAP 0 Refills Discontinued Medications: Metformin (Metformin) 1,000 Mg Tab 1000 MG PO BIDPC for Blood Sugar Management, #60 TAB 0 Refills Methotrexate (Methotrexate) 2.5 Mg Tab 20 MG PO Q7D for Inflammation, #32 TAB 0 Refills Naproxen (Naproxen) 250 Mg Tab 250 MG PO BID PRN for PAIN SCALE 1 TO 10, #60 TAB 0 Refills Trace Douglas MD Oct 22, 2017 10:13
[2017-10-22 12:55] VITALS: BP 118/79; PULSE 115; RESP 16; TEMP 98.5; O2SAT 100
== END 2017-10-22 13:43 | disposition home or self-care (01) | DRG 917 ==
LOC: NEPD 11:31 → NEDA 14:43 → N07B 17:25 → HCIN 10-17 17:46
PROVIDERS: ADMIT Hospitalist; ATTEND Hospitalist
DX: T45.1X1A Poisoning by antineoplastic and immunosuppressive drugs, accidental (unintentional), initial encounter (principal); D61.810 Antineoplastic chemotherapy induced pancytopenia; K52.1 Toxic gastroenteritis and colitis; N39.0 Urinary tract infection, site not specified; N76.81 Mucositis (ulcerative) of vagina and vulva; K12.30 Oral mucositis (ulcerative), unspecified; A60.00 Herpesviral infection of urogenital system, unspecified; E11.9 Type 2 diabetes mellitus without complications; M06.9 Rheumatoid arthritis, unspecified; K12.39 Other oral mucositis (ulcerative); E87.6 Hypokalemia; M19.90 Unspecified osteoarthritis, unspecified site; F32.9 Major depressive disorder, single episode, unspecified; Z79.84 Long term (current) use of oral hypoglycemic drugs; Z88.0 Allergy status to penicillin; Z88.1 Allergy status to other antibiotic agents
CPT/HCPCS: 36430; 71010; 74176; 80048; 80053; 80074; 80076; 80299; 81001; 82948; 83735; 84100; 85007; 85025; 85027; 85379; 85384; 85610; 85730; 86403; 86900; 86901; 87040; 87070; 87077; 87086; 87186; 87205; 87493; 87529; 87798; 96361; 96365; 96375; J0640; J0692; J0780; J1200; J1442; J1815; J2405; J2930; J3370; J3480; J7030; J7050; P9035; Q0164; Q9963